=== PATIENT | female | born 1985 | race Caucasian/White ===

== ENCOUNTER → 2019-08-16 15:31 | Outpatient (CLI) | payer OTHER, SELFPAY ==
[2019-08-16 19:22] LABS: Chlamydia Trachomatis by PCR Negative (Negative); Neisserai gonorrhoeae by PCR Negative (Negative); Probe Check PASS
== END ==
PROVIDERS: Referring Provider Obstetrics & Gynecology; Visit Provider Obstetrics & Gynecology
DX: Z11.3 Encounter for screening for infections with a predominantly sexual mode of transmission (principal)
CPT/HCPCS: 87491; 87591

== ENCOUNTER → 2019-08-31 11:37 | Outpatient (CLI) | payer OTHER, SELFPAY ==
[2019-08-31 12:21] LABS: Absolute Lymphocyte Count 1.81 X10^3/uL (0.83-4.51); Absolute Neutrophil Count 6.7 X10^3/uL (2.0-7.7); Basophil# 0.05 X10^3/uL; Basophil% 0.5 % (0-1); Eosinophil# 0.04 X10^3/uL; Eosinophils% 0.4 % (0-5); Hematocrit 38.8 % (37-47); Hemoglobin 12.5 g/dL (12.0-15.0); Lymphocyte # 1.81 X10^3/ul (4.0); Lymphocyte % 19.5 % (19-41); Mean Corp Hgb Conc 32.2 g/dL (32-36); Mean Corpuscular Hgb 27.8 pg (27.0-32.0); Mean Corpuscular Volume 86.4 fL (81-99); Mean Platelet Vol. 11.6 fl (6.2-12.0); Monocyte# 0.57 X10^3/uL; Monocyte% 6.2 % (0-10); NRBC Flagged by Analyzer 0 % (0-5); Neutrophil # 6.73 X10^3/uL (2.7-7.7); Neutrophil % 72.8 % (47-70); Platelet Count 271 K/mm3 (150-450); RBC Distribution Width CV 14.4 % (11.6-14.6); RBC Distribution Width SD 45.7 fl (35.1-43.9); Red Blood Count 4.49 M/mm3 (4.2-5.4); White Blood Count 9.3 K/mm3 (4.4-11.0)
[2019-08-31 12:32] LABS: Partial Thromboplast Time 26.1 Seconds (24.1-36.2); Prothrombin Time (Protime)PT. 12.9 SECONDS (11.7-14.9)
[2019-08-31 12:48] LABS: Color, Urine Yellow (Yellow); Glucose, Dipstick Normal (Normal); Ketone-Dipstick Negative (Negative); Leukocyte Esterase-Dipstick Negative /ul (Negative); Nitrite-Dipstick Negative (Negative); Occult Blood-Urine Negative /ul (Negative); Protein-Dipstick Negative (Negative); Urine Bilirubin Dipstick Negative (Negative); Urine Clarity Clear (Clear); Urine Urobilinogen Normal (Normal); Urine pH 6.5 (5.0 - 8.0)
[2019-08-31 13:27] LABS: Protein, Urine (Random) 22.7 mg/dL (<11.9)
[2019-08-31 13:30] LABS: AST(SGOT) 17 U/L (15-37); Alanine Aminotransfer ALT/SGPT 36 U/L (13-56); Amphetamine Urine VISTA NEGATIVE (<1000 ng/mL); Barbiturate Urine VISTA NEGATIVE (< 200 ng/mL); Benzodiazepine Urine VISTA NEGATIVE (< 200 ng/mL); Cocaine Urine VISTA NEGATIVE (< 300 ng/mL); EST Glomerular Filtration Rate 101 mL/min (>60); Ecstacy Urine VISTA NEGATIVE (< 500 ng/mL); Est Glom Filt Rate - Afr Amer 122 mL/min (>60); Methadone Urine VISTA NEGATIVE (< 300 ng/mL); PCP Urine VISTA NEGATIVE (< 25 ng/mL); THC Urine VISTA NEGATIVE (< 50 ng/mL); Thyroid Stim Hormone (TSH) 0.92 uIU/mL (0.358-3.74); Uric Acid 4.2 mg/dL (2.6-6.0); Vista UDS pH Range 6
[2019-08-31 16:44] LABS: HIV - WCH Non-Reactive (Nonreactive); Hepatitis B Surface Antigen Non-Reactive (Nonreactive); Hepatitis C Antibody Non-Reactive (Nonreactive); Rubella IgG 152.3 IU/mL
[2019-09-06 00:55] LABS: Prenatal RPR NONREACTIVE (NONREACTIVE)
== END ==
LOC: WOBLAB 11:42
PROVIDERS: Visit Provider Obstetrics & Gynecology
DX: O16.1 Unspecified maternal hypertension, first trimester (principal); Z3A.00 Weeks of gestation of pregnancy not specified
CPT/HCPCS: 36415; 80307; 81002; 82565; 82570; 84156; 84443; 84450; 84460; 84550; 85025; 85610; 85730; 86703; 86762; 86803; 87340

== ENCOUNTER → 2019-11-30 13:52 | Outpatient (CLI) | payer OTHER, SELFPAY ==
[2019-11-30 15:37] LABS: Hematocrit 36.5 % (37-47); Hemoglobin 12.2 g/dL (12.0-15.0); Mean Corp Hgb Conc 33.4 g/dL (32-36); Mean Corpuscular Hgb 30.5 pg (27.0-32.0); Mean Corpuscular Volume 91.3 fL (81-99); Mean Platelet Vol. 11.3 fl (6.2-12.0); Platelet Count 230 K/mm3 (150-450); RBC Distribution Width CV 15.5 % (11.6-14.6); RBC Distribution Width SD 50.9 fl (35.1-43.9); White Blood Count 11.6 K/mm3 (4.4-11.0)
[2019-11-30 15:53] LABS: ALB/GLOB Ratio 0.6 RATIO (0.9-2.4); AST(SGOT) 11 U/L (15-37); Alanine Aminotransfer ALT/SGPT 18 U/L (13-56); Albumin, Serum 2.9 g/dL (3.2-5.0); Alkaline Phosphatase 112 U/L (45-117); Anion Gap 10 (5-15); BUN 6 mg/dL (7-18); BUN/Creat Ratio 12.2 RATIO (10-20); Calcium,Total 8.9 mg/dL (8.5-10.1); Chloride 104 mmol/L (98-107); Creatinine, Serum 0.49 mg/dL (0.55-1.02); EST Glomerular Filtration Rate 152 mL/min (>60); Est Glom Filt Rate - Afr Amer 184 mL/min (>60); Globulin 4.5 g/dL (2.2-4.2); Glucose 85 mg/dL (74-106); Potassium 3.5 mmol/L (3.5-5.1); Protein, Total 7.4 g/dL (6.4-8.2); Sodium Level 137 mmol/L (136-145)
== END ==
PROVIDERS: Visit Provider Obstetrics & Gynecology
DX: O13.9 Gestational [pregnancy-induced] hypertension without significant proteinuria, unspecified trimester (principal); Z3A.00 Weeks of gestation of pregnancy not specified
CPT/HCPCS: 36415; 80053; 85027

== ENCOUNTER → 2020-01-08 11:44 | Outpatient (CLI) | payer OTHER, SELFPAY ==
[2020-01-08 13:39] LABS: Hematocrit 34.8 % (37-47); Hemoglobin 11.4 g/dL (12.0-15.0); Mean Corp Hgb Conc 32.8 g/dL (32-36); Mean Corpuscular Hgb 30.4 pg (27.0-32.0); Mean Corpuscular Volume 92.8 fL (81-99); Mean Platelet Vol. 11.7 fl (6.2-12.0); Platelet Count 209 K/mm3 (150-450); RBC Distribution Width CV 14.4 % (11.6-14.6); RBC Distribution Width SD 48.1 fl (35.1-43.9); Red Blood Count 3.75 M/mm3 (4.2-5.4); White Blood Count 9.8 K/mm3 (4.4-11.0)
[2020-01-08 13:42] LABS: Glucose Challenge Gest 1H 50g 190 mg/dL (70-140)
== END ==
PROVIDERS: Visit Provider Obstetrics & Gynecology
DX: Z34.83 Encounter for supervision of other normal pregnancy, third trimester (principal)
CPT/HCPCS: 36415; 82950; 85027

== ENCOUNTER → 2020-01-11 09:53 | Outpatient (CLI) | payer OTHER, SELFPAY ==
[2020-01-11 11:26] LABS: Glucose GTT-Gestation. Fasting 90 mg/dL (<105)
[2020-01-11 12:44] LABS: Glucose GTT-Gestational 1 Hr 190 mg/dL (<190)
[2020-01-11 13:18] LABS: Glucose GTT-Gestational 2 Hr 172 mg/dL (<165)
[2020-01-11 14:31] LABS: Glucose GTT-Gestational 3 Hr 164 L (<145)
== END ==
PROVIDERS: Referring Provider Obstetrics & Gynecology; Visit Provider Obstetrics & Gynecology
DX: O24.912 Unspecified diabetes mellitus in pregnancy, second trimester (principal); Z3A.00 Weeks of gestation of pregnancy not specified
CPT/HCPCS: 36415; 82951; 82952

== ENCOUNTER → 2020-01-29 10:49 | Outpatient (CLI) | payer OTHER, SELFPAY ==
[2020-01-29 13:48] LABS: Hematocrit 34.6 % (37-47); Hemoglobin 11.5 g/dL (12.0-15.0); Mean Corp Hgb Conc 33.2 g/dL (32-36); Mean Corpuscular Hgb 30.3 pg (27.0-32.0); Mean Corpuscular Volume 91.3 fL (81-99); Mean Platelet Vol. 11.9 fl (6.2-12.0); Platelet Count 211 K/mm3 (150-450); RBC Distribution Width CV 13.7 % (11.6-14.6); RBC Distribution Width SD 45.6 fl (35.1-43.9); Red Blood Count 3.79 M/mm3 (4.2-5.4); White Blood Count 8.2 K/mm3 (4.4-11.0)
[2020-01-29 14:02] LABS: Protein, Urine (Random) 29.2 mg/dL (<11.9); Protein:Creat Ratio 168 mg/g CRE (0-200)
[2020-01-29 14:05] LABS: ALB/GLOB Ratio 0.6 RATIO (0.9-2.4); AST(SGOT) 11 U/L (15-37); Alanine Aminotransfer ALT/SGPT 15 U/L (13-56); Albumin, Serum 2.7 g/dL (3.2-5.0); Alkaline Phosphatase 122 U/L (45-117); BUN 5 mg/dL (7-18); BUN/Creat Ratio 10.8 RATIO (10-20); Chloride 109 mmol/L (98-107); Creatinine, Serum 0.46 mg/dL (0.55-1.02); EST Glomerular Filtration Rate 162 mL/min (>60); Est Glom Filt Rate - Afr Amer 196 mL/min (>60); Globulin 4.4 g/dL (2.2-4.2); Glucose 81 mg/dL (74-106); Potassium 3.3 mmol/L (3.5-5.1); Protein, Total 7.1 g/dL (6.4-8.2); Sodium Level 138 mmol/L (136-145)
[2020-01-29 14:06] LABS: Anion Gap 9 (5-15); LDH 139 U/L (84-246)
== END ==
PROVIDERS: Visit Provider Student in an Organized Health Care Education/Training Program
DX: I10 Essential (primary) hypertension (principal)
CPT/HCPCS: 36415; 80053; 82570; 83615; 84156; 85027; 87086

== ENCOUNTER 2020-02-29 09:50 | Outpatient (CLI) | payer OTHER, SELFPAY ==
[2020-02-29 10:04] VITALS: BP 136/70; PULSE 97; TEMP 36.9
[2020-02-29 10:06] VITALS: PULSE 91; O2SAT 98
[2020-02-29 10:08] VITALS: BMI 44.7
--- NOTE | 2020-02-29 17:43 | PCM.PN.BLA ---
Progress Note NST REACTIVE 135/mod isac/+accel/no decel, toco quiet. cHTN BP stable. GDMA2. F/u next week in office.
== END 2020-02-29 10:30 | disposition home or self-care (01) ==
LOC: WPOUT 09:54 → WP 09:54
PROVIDERS: Visit Provider Student in an Organized Health Care Education/Training Program
DX: O24.419 Gestational diabetes mellitus in pregnancy, unspecified control (principal)
CPT/HCPCS: 59025; 59050; 99218; G0378

== ENCOUNTER → 2020-03-03 10:57 | Outpatient (CLI) | payer OTHER, SELFPAY ==
[2020-02-29 10:08] VITALS: BMI 44.7
[2020-03-03 14:34] LABS: Protein, Urine (Random) 36.8 mg/dL (<11.9); Protein:Creat Ratio 142 mg/g CRE (0-200)
[2020-03-03 14:37] LABS: Hematocrit 37.1 % (37-47); Hemoglobin 11.7 g/dL (12.0-15.0); Mean Corp Hgb Conc 31.5 g/dL (32-36); Mean Corpuscular Hgb 28.9 pg (27.0-32.0); Mean Corpuscular Volume 91.6 fL (81-99); Mean Platelet Vol. 12.1 fl (6.2-12.0); Platelet Count 201 K/mm3 (150-450); RBC Distribution Width CV 13.7 % (11.6-14.6); RBC Distribution Width SD 45.8 fl (35.1-43.9); Red Blood Count 4.05 M/mm3 (4.2-5.4); White Blood Count 10.2 K/mm3 (4.4-11.0)
[2020-03-03 14:38] LABS: ALB/GLOB Ratio 0.6 RATIO (0.9-2.4); AST(SGOT) 10 U/L (15-37); Alanine Aminotransfer ALT/SGPT 13 U/L (13-56); Albumin, Serum 2.7 g/dL (3.2-5.0); Alkaline Phosphatase 175 U/L (45-117); Anion Gap 7 (5-15); BUN 6 mg/dL (7-18); BUN/Creat Ratio 10.5 RATIO (10-20); Chloride 109 mmol/L (98-107); Creatinine, Serum 0.57 mg/dL (0.55-1.02); EST Glomerular Filtration Rate 127 mL/min (>60); Est Glom Filt Rate - Afr Amer 154 mL/min (>60); Globulin 4.4 g/dL (2.2-4.2); Glucose 83 mg/dL (74-106); LDH 149 U/L (84-246); Potassium 3.6 mmol/L (3.5-5.1); Protein, Total 7.1 g/dL (6.4-8.2); Sodium Level 139 mmol/L (136-145)
== END ==
PROVIDERS: Visit Provider Student in an Organized Health Care Education/Training Program
DX: O24.414 Gestational diabetes mellitus in pregnancy, insulin controlled (principal); O16.3 Unspecified maternal hypertension, third trimester; Z3A.00 Weeks of gestation of pregnancy not specified
CPT/HCPCS: 36415; 80053; 82570; 83615; 84156; 85027; 87086; 87088

== ENCOUNTER 2020-03-20 10:45 | Outpatient (CLI) | payer OTHER, SELFPAY ==
[2020-03-20] VITALS (11 sets, daily range): BP systolic 129–147; BP diastolic 62–77; PULSE 86–111; TEMP 36.8; O2SAT 98; BMI 44.3
[2020-03-20 11:57] LABS: Absolute Lymphocyte Count 1.76 X10^3/uL (0.83-4.51); Absolute Neutrophil Count 7.2 X10^3/uL (2.0-7.7); Basophil# 0.03 X10^3/uL; Basophil% 0.3 % (0-1); Eosinophil# 0.02 X10^3/uL; Eosinophils% 0.2 % (0-5); Hematocrit 33.9 % (37-47); Hemoglobin 11.2 g/dL (12.0-15.0); Lymphocyte # 1.76 X10^3/ul (4.0); Lymphocyte % 18.1 % (19-41); Mean Corpuscular Hgb 29.1 pg (27.0-32.0); Mean Corpuscular Volume 88.1 fL (81-99); Mean Platelet Vol. 11.9 fl (6.2-12.0); Monocyte# 0.65 X10^3/uL; Monocyte% 6.7 % (0-10); NRBC Flagged by Analyzer 0 % (0-5); Neutrophil # 7.21 X10^3/uL (2.7-7.7); Neutrophil % 74.2 % (47-70); Platelet Count 180 K/mm3 (150-450); RBC Distribution Width CV 14.2 % (11.6-14.6); RBC Distribution Width SD 45.3 fl (35.1-43.9); Red Blood Count 3.85 M/mm3 (4.2-5.4); White Blood Count 9.7 K/mm3 (4.4-11.0)
[2020-03-20 12:23] LABS: ALB/GLOB Ratio 0.6 RATIO (0.9-2.4); AST(SGOT) 11 U/L (15-37); Alanine Aminotransfer ALT/SGPT 13 U/L (13-56); Albumin, Serum 2.6 g/dL (3.2-5.0); Alkaline Phosphatase 188 U/L (45-117); Anion Gap 10 (5-15); BUN 7 mg/dL (7-18); BUN/Creat Ratio 13.3 RATIO (10-20); Calcium,Total 9.1 mg/dL (8.5-10.1); Chloride 107 mmol/L (98-107); Creatinine, Serum 0.53 mg/dL (0.55-1.02); EST Glomerular Filtration Rate 140 mL/min (>60); Est Glom Filt Rate - Afr Amer 170 mL/min (>60); Estimated Creatinine Clearance 133.31 ml/min; Globulin 4.2 g/dL (2.2-4.2); Glucose 78 mg/dL (74-106); LDH 144 U/L (84-246); Protein, Total 6.8 g/dL (6.4-8.2); Sodium Level 138 mmol/L (136-145)
[2020-03-20 12:23] LABS: Protein, Urine (Random) 22.4 mg/dL (<11.9); Protein:Creat Ratio 101 mg/g CRE (0-200)
--- NOTE | 2020-03-20 14:06 | OB.TRI.PN_ITS ---
Progress Notes Date of Service: 03/20/20 Progress Note: at 36/2w sent to triage from office for elevated BPs. Asymptomatic. On L&D BPs controlled, labs wnl. NST REACTIVE. Okay to discharge home with office visit Tuesday and induction 03/25 for cHTN and GDMA2. Laboratory Studies: Laboratory Tests 03/20/20 03/20/20 03/20/20 Range/Units 11:45 11:45 11:30 WBC 9.7 (4.4-11.0) K/mm3 RBC 3.85 L (4.2-5.4) M/mm3 Hgb 11.2 L (12.0-15.0) g/dL Hct 33.9 L (37-47) % MCV 88.1 (81-99) fL MCH 29.1 (27.0-32.0) pg MCHC 33.0 (32-36) g/dL RDW Std Deviation 45.3 H (35.1-43.9) fl RDW Coeff of Bibi 14.2 (11.6-14.6) % Plt Count 180 (150-450) K/mm3 MPV 11.9 (6.2-12.0) fl Immature Gran % (Auto) 0.500 (0.0-0.9) % Neut % (Auto) 74.2 H (47-70) % Lymph % (Auto) 18.1 L (19-41) % [facility] % (Auto) 6.7 (0-10) % Eos % (Auto) 0.2 (0-5) % Baso % (Auto) 0.3 (0-1) % Absolute Neuts (auto) 7.2 (2.0-7.7) X10^3/uL Absolute Lymphs (auto) 1.76 (0.83-4.51) X10^3/uL Nucleated RBC % 0 (0-5) % Sodium 138 (136-145) mmol/L Potassium 4.0 (3.5-5.1) mmol/L Chloride 107 (98-107) mmol/L Carbon Dioxide 21.0 (21.0-32.0) mmol/L Anion Gap 10 (5-15) BUN 7 (7-18) mg/dL Creatinine 0.53 L (0.55-1.02) mg/dL Estim Creat Clear Calc 133.31 ml/min Est GFR (MDRD) Af Amer 170 (>60) mL/min Est GFR (MDRD) Non-Af 140 (>60) mL/min BUN/Creatinine Ratio 13.3 (10-20) RATIO Glucose 78 (74-106) mg/dL Calcium 9.1 (8.5-10.1) mg/dL Total Bilirubin 0.40 (0.20-1.00) mg/dL AST 11 L (15-37) U/L ALT 13 (13-56) U/L Alkaline Phosphatase 188 H (45-117) U/L Lactate Dehydrogenase 144 (84-246) U/L Total Protein 6.8 (6.4-8.2) g/dL Albumin 2.6 L (3.2-5.0) g/dL Globulin 4.2 (2.2-4.2) g/dL Albumin/Globulin Ratio 0.6 L (0.9-2.4) RATIO U Random Total Protein 22.4 H (<11.9) mg/dL Urine Creatinine 221.00 (NO RANGE EST.) mg/dL Protein/Creatinin Ratio 101 (0-200) mg/g CRE
[2020-03-20 15:31] LABS: Group B Strep DNA By PCR Negative (Negative); Internal Control PASS; Probe Check PASS; Specimen Processing Control PASS
== END 2020-03-20 13:31 | disposition home or self-care (01) ==
PROVIDERS: Student in an Organized Health Care Education/Training Program; Visit Provider Obstetrics & Gynecology
DX: O10.913 Unspecified pre-existing hypertension complicating pregnancy, third trimester (principal); O24.419 Gestational diabetes mellitus in pregnancy, unspecified control; Z3A.36 36 weeks gestation of pregnancy
CPT/HCPCS: 36415; 59025; 59050; 80053; 82570; 83615; 84156; 85025; 87081; 87086; 87088; 87653; 99218; G0378

== ENCOUNTER → 2020-03-20 18:13 | Outpatient (CLI) | payer OTHER, SELFPAY ==
[2020-02-29 10:08] VITALS: BMI 44.7
[2020-03-20 11:14] VITALS: BMI 44.3
== END ==
PROVIDERS: Referring Provider Student in an Organized Health Care Education/Training Program; Visit Provider Student in an Organized Health Care Education/Training Program
DX: Z03.818 Encounter for observation for suspected exposure to other biological agents ruled out (principal)
CPT/HCPCS: 87635; C9803; U0003

== ENCOUNTER 2020-03-25 06:50 | Inpatient (IN) | payer OTHER, SELFPAY ==
[2020-03-20 11:14] VITALS: BMI 44.3
[2020-03-25] VITALS (38 sets, daily range): BP systolic 92–173; BP diastolic 46–83; PULSE 65–202; TEMP 36.1–36.7; O2SAT 82–100; BMI 44.6
[2020-03-25] MEDS: Lactated Ringers 1,000 ML 50 ML IV (07:35)
[2020-03-25 07:56] LABS: Absolute Neutrophil Count 6.9 X10^3/uL (2.0-7.7); Basophil# 0.02 X10^3/uL; Basophil% 0.2 % (0-1); Eosinophil# 0.07 X10^3/uL; Eosinophils% 0.7 % (0-5); Hematocrit 33.2 % (37-47); Hemoglobin 10.8 g/dL (12.0-15.0); Lymphocyte % 20.4 % (19-41); Mean Corp Hgb Conc 32.5 g/dL (32-36); Mean Corpuscular Hgb 28.8 pg (27.0-32.0); Mean Corpuscular Volume 88.5 fL (81-99); Monocyte% 7.1 % (0-10); NRBC Flagged by Analyzer 0 % (0-5); Neutrophil # 6.94 X10^3/uL (2.7-7.7); Neutrophil % 70.9 % (47-70); Platelet Count 180 K/mm3 (150-450); RBC Distribution Width CV 14.3 % (11.6-14.6); RBC Distribution Width SD 45.5 fl (35.1-43.9); Red Blood Count 3.75 M/mm3 (4.2-5.4); White Blood Count 9.8 K/mm3 (4.4-11.0)
[2020-03-25] MEDS: miSOPROStol 25 MCG TABLET VAGINAL ×2 (08:22→12:12)
--- NOTE | 2020-03-25 08:43 | PCM.HP.OB ---
History Date of Admission: 03/25/20 Final JANAE: 04/15/20 Final JANAE Source: US <20 weeks Gestational age: 37 Weeks and 0 Days History of this : This is a 34 year-old, G [4], P [2011], at 37 weeks gestational age presents for scheduled induction of labor for gestational diabetes and chronic hypertension Medical History: Medical History (Last Updated 03/25/20 @ 08:[address] Domenica Morrow MD) Anxiety F41.9 Depression F32.9 Chronic hypertension I10 Allergies No Known Allergies Allergy (Verified 03/25/20 07:10) Home Medications: Home Medications Insulin Detemir [Levemir] 20 unit SQ BID 02/29/20 Insulin Lispro [Humalog] 18 unit SQ PCHS 02/29/20 Labetalol [Trandate] 800 mg PO TID 02/29/20 Nifedipine [Nifedipine ER] 30 mg PO DAILY 02/29/20 Pnv No.103/Folic/Om3s/Fish Oil [ Gummies] 1 ea PO DAILY 02/29/20 Sertraline HCl 25 mg PO DAILY 02/29/20 Smoking Status: Current some day smoker Alcohol: None Number of Fetus(es): 1 History Labs: Final JANAE: 04/15/20 By Ultrasound: 7 weeks 3 days PARITY: (G-Total Pregnancies P-Fullterm,Premature,Induced AB,Spont AB, Ectopics, Multiple,Living) JANAE CONFIRMATION: By LMP: 07/04/19 Final JANAE: 04/15/20 BLOOD TYPE: AFP: 1 HR PG: GBS: Original Ordering Provider: Yeny REYES Culture Group B Beta Streptococcus is not isolated. Rublla titer (>10 immune)-- Hepatatis B cem AG-- CULTURES:-- OB PROBLEM LIST: Anxiety/Depression Chronic Hypertension GDMA2 ALLERGIES: Maxalt Hives and/or rash MEDICATIONS: aspirin 81 mg tablet,delayed release 1 PO QD Fioricet 50 mg-300 mg-40 mg capsule one tab every 6 hours as needed for headacke insulin lispro (U-100) 100 unit/mL subcutaneous pen 2 units at mealtime labetalol 200 mg tablet Take four tablets by mouth three times a day Levemir U-100 Insulin 100 unit/mL subcutaneous solution 10 units daily at night nifedipine ER 30 mg tablet,extended release 24 hr once daily 28 mg-800 mcg tablet daily promethazine 12.5 mg tablet Take one to two tablets every six hours as needed Zofran 4 mg tablet Take one tablet every four to six hours as needed Zoloft 25 mg tablet Take one tablet daily SOCIAL HISTORY: Smoking - Quit 5 y ago. Alcohol Use - RARELY not while Diet - balanced Diet, occ coffee and Water main beverage. Lifestyle - engaged Exercise - Walks once a week. Employer - [employer] Job Description - [employer] Illicit Drug Use - denies use of street drugs Sexual Activity - [employer] Residence - lives with [facility] Place of - [place] Hours Worked - On FMLA Spouse-Sig Other Name - FOB- Lul Kirk Spouse-Sig Other Occupation - Self employed- construction Spouse-Sig Other Phone No - [phone] Children Name(s) - Luba Jay PRIOR DELIVERY HISTORY DEL DATE GEST LAB WT LB WT OZ TYPE ANES LABOR TX 09 Dec 18 39 8 8 2 Vag Epidural No Sep 18 39 8 8 7 Vag Epidural No ANTEPARTUM FLOW CHART VISIT GE RTC FU F F OR U U DATE WK MD WKS HT PN HR M SS BP ED WT OR GL D EF ST __ ____ ___ __ __ ___ __ __ __ ___ __ __ __ ___ __ 21 Dec 36 JMW 2 37 V + + 148/84 sl 269 1+ - 2 65 -2 17 Dec 36 CM 1 37 V +U + 156/104 0 269 tr - 14 Dec 35 CM + + 116/80 267 10 Dec 35 + + 140/82 sl 268 - - 07 Dec 34 + 142/84 sl 268 -, - 03 Dec 34 + + 138/78 sl 269 - - 30 Feb 33 CM 1 34 V + + 142/84 sl 269 1+ - 23 Nov 32 CM 1 32 B +U + 152/84 sl 268 - - 20 Feb 32 SHM 1 + 120/74 264 17 Nov 32 CM + 138/82 tr 268 - - 13 Feb 31 + + 130/76 sl 269 - - 10 Feb 31 CM 1 31 B U+ + 136/96 sl 269 - - 06 Feb 30 + + 136/82 sl 270 tr - 03 Nov 30 CM 1 B U+ + 146/84 sl 268 tr - 30 Oct 29 + + 132/80 sl 271 27 Oct 29 CM 1 29 B + + 142/82 sl 271 23 Oct 28 + + 140/84 sl 272 tr - 20 Oct 28 CM 1 28 V U+ + 140/78 1+ 274 tr ne 06 Oct 26 CH 2 26 + + 148/82 sl 274 1+ - 22 Sep 24 JM 2 24 - + + 140/74 sl 274 tr - 15 Sep 23 CH 1 23 + + 152/98 0 271 1+ - 04 Sep 21 JM 4 21 - + + 124/82 tr 271 1+ - 28 Aug 20 CH 1 on + 158/92 sl 273 tr - 05 Nov 17 CH 3 + + 144/90 0 274 tr - 07 Oct 13 CH 4 on US 124/80 0 270 - - 25 Hever 11 CH 4 + - 130/70 0 272 tr - 29 August 7 CH on US 150/98 0 274 tr - ANTEPARTUM NOTE(S): Mar 24 2020: induce tomorrow Mar 20 2020: Mar 17 2020: unable Mar 13 2020: Blood sugars and home B/Ps copied for review. Mar 10 2020: Mar 06 2020: Mar 03 2020: Feb 25 2020: Feb 22 2020: Reactive NST Feb 19 2020: Feb 15 2020: Feb 12 2020: Feb 07 2020: See note Feb 05 2020: Feb 01 2020: Jan 29 2020: Jan 25 2020: Feels okay. Jan 22 2020: Jan 08 2020: still having some slight N/V Dec 25 2019: Dec 18 2019: Sep 2019: Nov 30 2019: Nov 07 2019: feeling well. Denies xiong or blurry vision. AM Oct 09 2019: see note Sep 27 2019: see note Aug 31 2019: repeat BP 150/86. Nausea. NOB papers and labs today. COMPREHENSIVE ANTEPARTUM NOTE(S): Mar 24 2020: H taken to OB. tkg Mar 24 2020: Carline is here for her NST at 36 w 6 d. She states that she is exhausted, and ready for induction in the morning. She reports good FM. Slight edema noted below knees. Carline denies spotting/cramping/LoF. NST reactive, read per Dr. Flores. AW Mar 20 2020: Carline is here with SO for 36 + 2 PNV. US prior to this visit. Reporting good FM. Meds remain the same. No edema present today. She continues to wear compression socks. Blood sugars and Blood pressures copied. GBS due today. [facility] consents reviewed and signed. No complaints or concerns expressed. Mar 20 2020: 36/2w visit. Chronic Hypertension on labetolol 800 TID and procardia 60 qD. BP elevated today in office, asymptomatic. Will go to L for monitoring and bloodwork. GDMA2 - Increase levemir to 20 units AM/PM and 18 units with meals. With both chronic hypertension and GDMA2 with increasing insulin requirements, will plan for induction of labor at 37/0w on 03/25/20 with cytotec (CE FT). F/u for NST Tuesday and induction Tuesday. CM Mar 20 2020: BP recheck 146/100. Cytotec Induction scheduled for 03/25/20 @ 7 AM. Consent signed. Induction papers faxed to OB. Induction literature given to Carline. COVID test order faxed; she is planning to do today. kbm Mar 17 2020: Carline is here for NST at 35.6 weeks for GDM on insulin. Feeling well. Baby active. Unable to leave urine today. States she believes will be induced next week. Ready for baby. NST read as reactive by Dr GALLAGHER. CHRIS. Mar 13 2020: Carline is here for her NST at 35 w 2 d. She states that she feels okay, but tired. She reports good FM. Carline denies spotting or LOF. She states that she feels mild irregular cramping at night. Slight edema noted below knees. Continues insulin 17 units both AM and PM, as well as 16 units after meals. NST reactive, read per Dr. Flores. Dr. Flores reviewed blood sugars and home B/P's; copy of blood sugars and B/P's for reviewed per Dr. Joe Maya. AW Mar 10 2020: US prior to this visit. Reporting good FM. Meds remain the same. Blood sugars, BP's scanned to her chart. Mar 10 2020: 34/6w visit. BPP 8/8, baby transverse. cHTN - continue current medications. Plan for labs next week again, labs last week wnl. GDMA2 - will increase levemir to 17/17 and 16 TID meals. Plan for delivery 37-39w, likely closer to 37w due to chronic HTN and GDMA2. F/u 1w. CM Mar 06 2020: Carline is here at 34 w 2 d for her NST. She reports that she is tired. She states that she feels good FM. Denies spotting/LoF. She notes occasional mild cramping. Slight edema below knees. She denies a headache. NST reactive, read per Dr. Joe Maya. Dr. Maya reviewed blood sugars and home B/P's. No changes in any medication doses today. Per Dr. Maya's order, Carline advised that latest lab values were WNL. AW Mar 03 2020: Carline reporting good FM. Wearing compression stockings. Reporting slight XIONG this morning. BP's and blood sugars scanned to her chart. Continues Labetalol 800 mg TID, Nifedipine 60 mg daily, Levemir and Lispro. Mar 03 2020: 33/6w visit. cHTN: BPs controlled, labetolol 800 mg TID and procardia 60 mg daily. Continue. Labs today. Pre-e precautions given. GDMA2: Levemir 15/15 increase lispro at meals to 14 units. F/u 1w. CM Feb 25 2020: Carline reporting good FM. Blood sugars and BP's records from home scanned to her chart. BPP 8/ prior to this visit. Feb 25 2020: 32/6w visit. BPP 8/8, breech position. GDMA2: glucose post prandial improved. No changes to insulin regimen today. Levemir 15/15 AM/P and 12units short acting with meals. cHTN: BPs stable on labetolol 800 TID and procardia 60 qD. NST to be scheduled Tuesday AM on L. Needs labs drawn either tuesday or next week. F/u 1w. CM Feb 22 2020: Carline is here for NST. cHTN/GDM. NST is reactive, B/P WNL. Reports blood sugars have been ok. Plans PNV and BPP on Tuesday. LMT Feb 19 2020: Carline is her today with SO for her PNV. She is doing well with no complaints or concerns. + FM. Trace of edema in ankles. Medications and allergies reviewed. LJW Feb 19 2020: 32/0w visit. cHTN. Continue current meds, BP control is improved. GDMA2: improving glucose control. Levemir 15/15 us A/P and 12 units with meals. Will consider MFM consult if needed next week. PP glucose between 130-190s. Growth today AGA, fluid wnl. F/u 1w. CM Feb 15 2020: Carline is here at 31 w 3 d for her NST. She states that she is tired, but well. She denies spotting/LoF/cramping. She feels good FM. Slight edema noted below knees. NST reactive, read per Dr. Joe Maya. Blood sugars and blood pressures from the last three days reviewed per Dr. Joe Maya. Dr. Maya advised to have Carline increase her meal time Insulin to 10 units from 7 units, and no changes to Labetalol, Nifedipine, Levemir dosages; Carline advised and states that she understands all. AW Feb 12 2020: 31/0w visit. Chronic HTN. Wnl here in office, at home 150-160s systolic, increase procardia to 60 mg daily. GDMA2: OTBS fasting wnl, still elevated postprandial. Increase mealtime insulin to 7u TID. Keep levemir 15/10 AM/PM. BPP 8/8 today, LOUIS wnl. Growth US 02/18. CM Feb 12 2020: NOB VISIT-- Carline is a 34 yo G 4 P 2 with JANAE 1-12--21 planning a vag del at [facility] w epidural using [facility] for post disch ped care and to breastfeed. She is an ACCOUNTING TEACHER on FMLA currently. FOB is Lul who is self employed in construction. They have 5 and 4 yo daughters at home. She reports high BP with her other two pregnancies and about 8 hour labors. Carline is allergic to Maxalt. She has no allergies to latex, food or the environment. Her diet sounds balanced w occ coffee and water is her main beverage. Enc to drink as close to one gal daily as she can. Carline is a GDM on insulin and has chronic hypertension, anxiety and migraines. Her meds are: aspirin, Fioricet, insulin, labetalol, nifedipine, promethazine, Zofran and Zoloft. Carline walks once a week on Wednesdays. Enc to walk daily or do yoga for pg DVD. Carline was a smoker but quit 5 years ago upon realizing her first pg. She drinks alcohol very rarely and not in pg. She denies street drug use. Genetics Screening form completed at a prev visit noting no family issues. She declined genetics testing. Warning signs in pg reviewed along w wearing her seatbelt low on her abd, reaching the office after hours, the importance of protein in her diet with understanding voiced. They have no cats but she is aware of litter box issues. She has a copy of What to Expect. Office Class suggested as nursing has not gone well in the past. Enc to call w any concerns. Visit took approx 35 min. Johnathan JAMES. Feb 08 2020: Carline is here at 30 w 3 d for her NST. She reports she feels well. She denies spotting/cramping/LoF. Carline reports that she is feeling good FM. Slight edema noted below knees. She brought her home B/P cuff with her today (automatic with a large cuff), B/P with her cuff is 129/89 today in office (L arm, reclining in slight left tilt). Home B/P's over the last three days: 161/82, 166/89, 156/101, all taken in the evening or late afternoon. Suggested taking B/P's when lying tilted on L side, and when the house is a bit quieter. Blood sugar log reviewed, and reported to Dr. Joe Maya; no new orders regarding insulin; Carline advised. NST reactive, read per Dr. Joe Maya. AW Feb 05 2020: Brings BP + sugar readings. Scanned to her chart. She takes a half of a Zofran and lies down after taking Labetalol for about a half hour, otherwise upsets her stomach and she will vomit. Denies blurred vision and no RUQ pain. Edema legs worse by the end of her day. She has been having headaches every day, taking Fioricet and Tylenol which keeps XIONG dull and is manageable, but does not resolve completely. Good FM. [facility] Feb 05 2020: 30/0 w visit. Chronic HTN - BP stable in office. Continue procardia 30 qD and labetolol 800 TID. GDMA2: post prandial elevated. Will increase levemir PM/AM to 15/10 units and add short acting mealtime 2units. Pt will bring glucose on for NST apt. BPP today 11/09, LOUIS wnl. F/u 1w. CM Feb 01 2020: Carline is here at 29 w 3 d for her NST. She states that she feels okay, and reports good FM. She denies cramping or spotting. Slight edema noted below knees. NST reactive, read per Dr. Joe Maya. AW Jan 29 2020: States doing well w/Levemir Insulin @ hs. Brings sugar and BP readings record with her -- scanned to her chart. BP's 01/25 -- 151/101, 01/26 -- 165/94, 01/27 -- 155/96. Reporting XIONG's the past 2 days -- takes Tylenol, which takes the edge off; no epigastric pain, reporting edema in legs worse in the evenings, but otherwise minimal. Good FM. [facility] Jan 29 2020: 29/0w visit. Chronic HTN - BP stable in office, a little higher at home. Now on procardia 30 qD and labetolol 800 TID. Having headache that is improved with tylenol but not completely gone today. No visual changes, nausea/emesis, RUQ pain, Neuro exam wnl - CN 2-12 grossly intact, DTRs 2/4 bilaterally. Labs drawn today. Fioricet script sent. Precautions discussed. GDMA2: fasting glucose wnl, PP variable - she is checking 1hr PP. Will keep levemir 10 u at night and levemir 5 units in AM. Continue testing BPP/NST twice weekly. F/u 1w Jan 25 2020: Carline is here for a NST at 28 w 3 d. She is familiar with EEFM/NST. She states that she feels okay, and that she notes good FM. She denies spotting/cramping. Slight edema noted below knees. Blood sugars at home: FBS 87 - 108, 1 hr pp breakfast 108 and 201, 1 hr pp lunch 108-178, 1 hr pp dinner 123, 160, 169. She reports that she is doing okay with administering insulin. Home B/P's: 151/98, and 155/89. Denies headaches, visual disturbances, or epigastric pain. NST reactive, read per Dr. Gurdeep Morrow. AW Jan 23 2020: Carline is here for diabetic teaching: Insulin Injection. 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 Info from [employer] 2019 on Learning How To Inject Insulin discussed and given to her. She demonstrated drawing up and injecting a 10 unit dose of NS correctly several times. States she can do this. 50 unit insulin syringes #30 with 2 refills called to [facility]. Site rotation, proper disposal of used needles and treatment for low glucose readings discussed. Advised, per [facility] diabetic nurse instructor: one glass of milk or 1/2 glass of juice swallowed rapidly. She verbalizes understanding of these procedures. To call office with any concerns or questions. Johnathan JAMES. Jan 22 2020: Carline is here for PNV. US completed today. States she is having good FM. Slight edema in hands. 1+ edema in feet. Taking BP medications which causes nausea othrwise no issues with N/V. BP today is 140/78. Taking Labetalol 200 mg tid and ASA 81 mg qday. Jan 22 2020: 28w visit. GDMA: fastings above 95 and average 1hr postprandial >140. Start levemir 10 units once daily at night. Pt's insurance does not cover well tester. Will come back tomorrow for diabetic teaching on how to use insulin in office. cHTN. BPs at home elevated 150-160/100s. Will add procardia XL 30 qD. Will start twice weekly testing (BPP/NST). F/u 1w Jan 08 2020: Carline is here for PNV. States she is still having a little N/V especially after taking pills. BP 148/82 today. Brougth with her, her BP from home that she monitored.Slight edema noted in ankles and feet. Urine dipped 1+ and neg today. [facility] Jan 08 2020: Routine PNV with third trimester labs today. Understands no news is good news. Saw Dr. Brandon Maya at last visit and medication remained the same. Today BP 148/82 in the office. Home medications 12/25-01/[address] Bee Maya reviewed and will maintain same medication dosage with education on home BP cuff/monitoring. She reports her BP cuff is an electronic cuff, but not a wrist one. It is an actual arm cuff. Will look at manual and will bring in cuff to compare to ours at next visit. FHR 140. Q2 week visit with joselyn BECK at that time. If s/s of pre-e understands to call immediately. Work excuse wrote until 01-24 or until released by the office- Dec 25 2019: Carline is here for PNV. States she is having good FM. Slight edema noted in ankles. Able to eat well but feeling tired most of time. Urine dipped for tr and neg. BP today 140/74. Has been monitoring at home and brought those results in with her. Glucola with instructions given. Voices understanding. [facility] Dec 25 2019: Pt with cHTN on Labetalol 800mg TID. BP's at home 140-150/70-90's, with iso 160. Pt asymptomatic, does have nausea when taking labetalol but decreased with Zofran prior to taking. Will add medication if pt need increase in BP meds, at this time will keep medications as is. Discussed that medication addition/change is likely in the future. Also discussed the risk of LANCE and possible delivery. Educated on Signs/Symptoms of PreE. Pt discussed working with and her work, will continue to be off. Discussed no bed rest. Will get Growth U/S at 28wks, then q4week growths. Will start twice weekly BPP at 32wks. ASA sent to pharmacy. For 1hr GTT at next visit. Dec 18 2019: Carline is her today for her PNV. She is doing good. Good FM. States that swelling in L. hand and legs go away after she lays down and rests. No edema present today. Medications and allergies reviewed today. No other questions or concerns expressed today. Second BP 138/80. [facility] Dec 18 2019: +FM. FHR 140-150s. Home BPs copied into chart. Of 10 days she had increased BP 8/10 days. Will icrease Labetolol to 800mg TID per Dr. Brandno Maya. She will see him next week and would like to return to work if able. Understands this is the max dose of current medication and if not helping enough will need to change medications. Advised at this time I don't feel comfortable letting her return to work. Give the increased dosage a week to see if this takes effect or not. Dr. Maya can decide whether he thinks she should return or not, but we do understand her needing the income. Will return in 1 week to re-evaluate per her wishes. - Dec 07 2019: Carline is her today for her PNV. She is doing good. Good FM. States that swelling in hands and feet have gone down since she stopped working. She stills has nausea and vomiting. She states that since her Labetalol was increased her dizziness and nauseated has decreased to once a week. No other questions or concerns expressed to day. Medications and allergies reviewed today. No other questions or concerns expressed to day. [facility] Dec 07 2019: 21wk pt arrives for BP check. BP wnl with cHTN on labetalol 400mg TID. CBC and CMP drawn at last visit wnl. Asymptomatic. To follow up 4 weeks for visit and 1hr GTT. Nov 30 2019: Carline is here accompanied by SO. Good FM. Slight edema in feet and ankles. She stills has nausea and vomiting. Labetalol was increased and she is feeling dizzy and nauseated with the increase. No other questions or concerns expressed to day. [facility] Nov 30 2019: Anatomy US today reveals female fetus, AGA at EFW 55th%. All anatomy visualized and WNL. FHR on US 145. Called in 11-22 with a burning headache and elevated BPs. Dr. Bee Maya increaesed her Labetolol to 400mg BID at that time. Denies headache now. BP today 150s/90s. At work she states they range 160-170s/90-100s with +4 pitting edema. To start wearing compression stockings, which she states she has a pair at home. If she can't find them to get some from [email or web address]. Advised she should not be working in which her partner agrees that they do not need her income. She will agree to take the next week off of work and be evaluated next Tuesday by Bee Maya after increasing her Labetolol today to 400mg TID. Will also get a CBC and CMP. Reports +FM. To return next Tuesday.( In consultation with Dr. Kayla Maya) - Nov 07 2019: BP today 144/90. She reports at work BPs have been 140s/100s. 144/103 at work last night. At home BP is lower 132/88, 143/95. Consulted with Dr. Flores and will switch medication to Labetolol 200mg BID. Pt agreeable. FHR today 138. Feeling lots of movements with audible movements heard. Has paperwork for work that she will turn in up front. No questions or concerns. To return in 3 weeks for routine PNV and anatomy US. - Oct 09 2019: Carline is here for a PNV and US today. 13 wks and 0 days. Pt is doing good. Continued nausea, however, it is improving. Pt still taking Procardia as directed. No complaints or concerns today. Oct 09 2019: Dating US today consistent with LMP for JANAE of 04-15-2020. FHR 148. BP stable today at 124/80. Feeling well and nausea is so much better! No questions or concerns today. To continue current Procardia dosge. Discussed chornic HTN. Biweekly NSTs to begin at 32 weeks with once weekly BPP and Q4 week growth scans. WIll plan IOL at 38 weeks or 37 if needed. To return in 4 weeks or call if BPs start to elevate. - Sep 27 2019: Carline is here for a PNV. No FM yet. Continues to have nausea and vomiting daily. Can keep some foods down. Still taking Procardia. Down 6lbs. Sep 27 2019: Started on Procardia 30 at last visit. BP was 150/98 then. Today BP is 130/70. Denies any s/s of HTN. Zofran has not been helping with nausea enough. To increase dose to 8mg and add phenergan 12.5mg 1-2 tabs as needed. On the went to care center and had a fun ultrsound done. Dr. Flores read it and said she needed a follow up within 4 weeks for somehting he seen on there with the baby. No records on her chart. To return in 2 weeks for US and routine PNV. - Aug 31 2019: Patient and partner are here today for dating US today reveals JANAE of 04-15-20 with GA of 7w3d. FHR 152. Reports N/V and has lost 4lb. Tried OTC medication and will now send in Rx for Zofran to pharmacy to try. If worsening or unable to keep liquids down to call. We want to prevent dehydration. NOB RN visit scheduled via telehealth for next week. EPDS=0. Unsure on AFP testing. BP still elevated today. Will start Procardia 30mg ER. To take BP QD and call if ever >160/110. No other questions or concerns. To return in 4 weeks for routine PNV. - Aug 16 2019: Carline is being seen for missed menses. Pt is new to facility. . UPT in office is positive. LMP 07/04/19. Pt states she only bled for two days and has always had monthly and regular periods. Pt is about 6 weeks and 1 day. JANAE 04/09/20. Pt is experiencing nausea. OTC meds gone over and pt will try before getting rx from office. Pt just moved to [place] to live with kirti. Last pap pt guesses [address]/NG urine sent for any infections. information gone over. AM Aug 16 2019: 33y old new patient here today for a missed menses appt today reporting LMP of 07-04-19 with only a couple days of bleeding. UPT+ today in office. This would give her a GA of 6w1d and JANAE of 04-09-20. This is her third . High BP today even on repeat at 150/90. States had high BP in her previous two pregnancies and had to be induced. She used to be on medicine when she was an adolescent for BP, but none since. Let her know will discuss with attending MD about possibly starting an antihypertensive now and then a baby aspirin after 12 weeks. She is agreeable to this. Also wants to restart her Zoloft dose. Rx sent in. She is already taking PNV and is a non-smoker. Office orientation with missed menses packet reviewed. Reviewed nurse triage line and available 25/10. Will return in 2-3 weeks for NOB US, labs and PNV. To have NOB RN telehealth visit and states understanding. - REVIEW OF SYSTEMS: GENERAL - Denies fever, or chills SKIN - Denies rash, new skin lesions, or change in moles EYES - Denies blurred vision, or change in visual acuity EARS - Denies ear pain, or difficulty hearing NOSE - Denies nasal congestion, discharge, or bleeding MOUTH - Denies sore throat, or difficulty swallowing NECK - Denies pain or swelling RESPIRATORY - Denies shortness of breath, cough, wheezing CARDIOVASCULAR - Denies palpitations, chest pain, orthopnea, PND, peripheral edema, syncope or claudication GASTROINTESTINAL - Denies nausea, vomiting, diarrhea, constipation, Denies abdominal pain, melena and or bright red blood GENITOURINARY - Denies dysuria, frequency of urination, urgency, or hesitancy MUSCULOSKELETAL - Denies joint or muscle pain, or back pain NEUROLOGICAL - Denies localized numbness, weakness, or tingling PSYCHIATRIC - Denies depression, anxiety, substance abuse or suicide attempts ENDOCRINE - Denies heat or cold intolerance, weight loss or gain, increasing thirst HEMATO-IMMUNOLOGIC - Denies easy bruising, bleeding, oral ulcerations or recurrent infections GENETICS SCREENING: Age 35+ years: Yes Thalassemia: No Neural Tube Defect: No Down Syndrome: No ONDINA-SACHS: No Sickle Cell Disease: No Hemophilia: No Musc. Dystrophy: No Cystic Fibrosis: No-declines screening [place] Chorea: No Mental Retardation: No Fragile X: No Other genetic: No Other defects: No SABs/still births: No Drugs since LMP: Yes INFECTION HISTORY: High risk AIDS: No High risk Hepatitis: No Exposed to TB: No Exposed to Herpes: No Rash/viral illness since LMP: No History of STD: No MENSTRUAL HISTORY: *Menses Amount/Duration: 2 daysMenses Regularity: RegularFrequency: monthly* PAST SUMMARY: PARITY: 1. Total Pregnancies............ 4 2. Full Term Pregnancies........ 2 3. Premature.................... 0 4. Abortions - Induced.......... 0 5. Abortions - Spontaneous...... 1 6. Ectopics..................... 0 7. Multiple Births.............. 0 8. Living Children.............. 2 PAST #1: Date of :.................. 09/18/16 Gestation Weeks:................ 39 Length of labor(hours):......... 8 Sex:............................ F Weight-lbs:............... 8 Weight-oz:................ 7 Type of Delivery:............... Vag Type of Anesthesia:............. Epidural Place of Delivery:.............. [facility] Treatment of Labor?:.... No Comment: DAVID ABARCA PAST #2: Date of :.................. 12/12/15 Gestation Weeks:................ 39 Length of labor(hours):......... 8 Sex:............................ F Weight-lbs:............... 8 Weight-oz:................ 2 Type of Delivery:............... Vag Type of Anesthesia:............. Epidural Place of Delivery:.............. [facility] Treatment of Labor?:.... No Comment: PI Expected Delivery Method: Spontaneous Vaginal Number of Visits: 20 Physical Exam Vitals: Vital Signs Temp Pulse BP Pulse Ox 98.1 F 86 134/69 H 97 03/25/20 08:14 03/25/20 08:14 03/25/20 08:14 03/25/20 08:14 General: Alert, Oriented x3, Cooperative, No apparent distress HEENT: Atraumatic, Normocephalic Cardiovascular: Regular rate, Regular Rhythm, Normal S1, Normal S2 Lungs: Clear to auscultation, Normal air movement Abdomen: Soft, Non Tender, Non-Distended, Gravid Extremities:: No edema, Other - +1 b/l LE DTRs, no clonus Neurological: Neuro grossly intact Estimated gestational size: Appropriate for gestational size Presentation: Cephalic Cervix Dilation (cm): 2 - per RN E Valorie exam Station: -3 Effacement (%): 50 Assessment/Plan This is a 34 year-old, G [4], P [2012], at 37 weeks gestational age. -Cytotec IOL
[2020-03-25 08:45] LABS: Bedside Glucose 83 mg/dL (70-110)
[2020-03-25] MEDS: Labetalol 200 MG Tablet 800 MG PO (09:16)
[2020-03-25] MEDS: Sertraline 50 MG Tablet 25 MG PO (09:26)
[2020-03-25] MEDS: NIFEdipine 30 MG Tablet PO (09:27)
[2020-03-25] MEDS: Insulin Lispro 100 UNIT/ML INSULN.PEN 18 UNIT SC (09:55)
[2020-03-25] MEDS: 0.9% Saline Lock 10 ML Syringe IV ×2 (10:03→23:59)
[2020-03-25] MEDS: Ondansetron 4 MG/2 ML Vial IV ×2 (10:03→23:59)
[2020-03-25 11:06] LABS: Bedside Glucose 102 mg/dL (70-110)
[2020-03-25] MEDS: Lactated Ringers 500 ML 999 ML IV (13:30)
[2020-03-25] MEDS: fentaNYL-bupivacaine (epidural) 100 ML BAG EPIDURAL ×4 (14:33→23:45)
[2020-03-25 15:15] LABS: Bedside Glucose 71 mg/dL (70-110)
[2020-03-25] MEDS: Oxytocin 30 units/NS 500 ml 30 UNITS/500 ML IV.SOLN IV (16:25)
[2020-03-25] MEDS: Lactated Ringers 1,000 ML 200 ML IV ×2 (16:52→22:09)
[2020-03-25 17:05] LABS: Bedside Glucose 73 mg/dL (70-110)
[2020-03-25 19:00] LABS: Bedside Glucose 68 mg/dL (70-110)
--- NOTE | 2020-03-25 19:49 | PCM.PN.BLA ---
Progress Note LABOR PROGRESS NOTE No complaints. Comfortable with epidural. AVSS Vital Signs Temp Pulse BP Pulse Ox 03/25/20 19:22 97.0 F L 66 103/54 L 03/25/20 18:01 97.2 F L 72 117/58 L 100 03/25/20 16:26 97.6 F L 73 100 03/25/20 16:25 71 122/59 H 03/25/20 15:45 100 03/25/20 15:44 75 106/52 L 03/25/20 15:09 77 92/50 L 100 03/25/20 15:08 78 86 03/25/20 15:04 75 102/51 L 100 03/25/20 14:59 69 105/57 L 100 03/25/20 14:55 71 113/55 L 03/25/20 14:54 100 03/25/20 14:49 87 107/61 100 03/25/20 14:44 79 96/55 L 100 03/25/20 14:39 77 102/51 L 99 03/25/20 14:35 97.1 F L 74 113/53 L 03/25/20 14:34 73 99 03/25/20 14:29 82 118/56 L 99 03/25/20 14:24 79 120/58 L 99 03/25/20 14:19 83 120/56 L 98 03/25/20 13:05 71 110/56 L 03/25/20 11:53 99 03/25/20 11:52 97.5 F L 202 H 108/55 L 82 03/25/20 10:59 71 103/51 L 03/25/20 10:09 78 100/55 L 03/25/20 10:08 97.9 F 03/25/20 09:32 78 149/70 H 03/25/20 09:16 82 173/83 H 03/25/20 08:14 98.1 F 86 134/69 H 97 Laboratory Results 03/25/20 03/25/20 03/25/20 18:49 16:55 14:47 WBC RBC Hgb Hct MCV MCH MCHC RDW Std Deviation RDW Coeff of Bibi Plt Count MPV Immature Gran % (Auto) Neut % (Auto) Lymph % (Auto) [place] % (Auto) Eos % (Auto) Baso % (Auto) Absolute Neuts (auto) Absolute Lymphs (auto) Nucleated RBC % POC Glucose 68 L 73 71 Blood Type Antibody Screen 03/25/20 03/25/20 03/25/20 10:54 08:20 07:35 WBC RBC Hgb Hct MCV MCH MCHC RDW Std Deviation RDW Coeff of Bibi Plt Count MPV Immature Gran % (Auto) Neut % (Auto) Lymph % (Auto) [place] % (Auto) Eos % (Auto) Baso % (Auto) Absolute Neuts (auto) Absolute Lymphs (auto) Nucleated RBC % POC Glucose 102 83 Blood Type A POSITIVE Antibody Screen NEGATIVE 03/25/20 07:35 WBC 9.8 RBC 3.75 L Hgb 10.8 L Hct 33.2 L MCV 88.5 MCH 28.8 MCHC 32.5 RDW Std Deviation 45.5 H RDW Coeff of Bibi 14.3 Plt Count 180 MPV 12.0 Immature Gran % (Auto) 0.700 Neut % (Auto) 70.9 H Lymph % (Auto) 20.4 [place] % (Auto) 7.1 Eos % (Auto) 0.7 Baso % (Auto) 0.2 Absolute Neuts (auto) 6.9 Absolute Lymphs (auto) 2.00 Nucleated RBC % 0 POC Glucose Blood Type Antibody Screen GEN - NAD, AAO x 3 FHR 120 , moderate variability, + accelerations, no decelerations TOCO 3/10 min SVE 3/50/-3, moderate and midposition A/P: 34yo @ 37wga, cHTN, GDM, Cat I FHR, IOL -s/p cytotec on pitocin -Amniotomy performed with clear fluid, ISE placed -BPs low to normal range with home dose medications. Pt reports this occurs often with BPs to 100s/50s and may feel shaky. Afternoon dose of Labetalol already held. Will give Labetalol 400mg tonight and plan to hold am Nifedipine. -Blood sugars appropriate, will continue Levemir STROKE Vital Signs/Narrative: Vital Signs Temp Pulse BP Pulse Ox 03/25/20 19:22 97.0 F L 66 103/54 L 03/25/20 18:01 97.2 F L 72 117/58 L 100 03/25/20 16:26 97.6 F L 73 100 03/25/20 16:25 71 122/59 H
[2020-03-25 21:35] LABS: Bedside Glucose 68 mg/dL (70-110)
[2020-03-25] MEDS: Labetalol 200 MG Tablet 400 MG PO (22:08)
[2020-03-25 23:21] LABS: Bedside Glucose 91 mg/dL (70-110)
[2020-03-26] VITALS (18 sets, daily range): BP systolic 105–133; BP diastolic 51–66; PULSE 70–82; RESP 16; TEMP 36.3–37.1; O2SAT 97–98
[2020-03-26] MEDS: Lactated Ringers 500 ML 999 ML IV
--- NOTE | 2020-03-26 | PLAC_PTH ---
PATIENT: YONNY BORDEN LOC: WP U#:[id number] AGE/SX: 34/F ROOM: WP016 RE03/25/[address]: Dr. Domenica Morrow MD : 1985 BED: 1 DIS: 03/27/2020 SPEC #: [id number] RECD: 03/27/20 12:03 STATUS: PENELOPE REAga #: [id number] HIMA: 03/26/20 00:[address]: Domenica Ragland DEPT: SURGICAL PATHOLOGY RECD BY: Truong Metzger ENTERED: 03/27/20 07:29 SP TYPE: PLACENTA OTHR DR: No Primary Care Phys Tissues: Placenta, NOS Procedures: Surgery Specimen Level V HEADER OPERATION: Vaginal delivery PRE-OP DIAGNOSIS: 37 1/7wga, CHNT, DM TISSUE SUBMITTED: Placenta MICROSCOPIC DIAGNOSIS Ricardo placenta (356 gm): Umbilical cord - trivascular with no inflammation. Placental membranes - no pathologic change. Placental disc - focal organizing hemorrhage. Mild intervillous congestion. AM:byron 03/31/20 MICROSCOPIC DESCRIPTION Slides are reviewed. GROSS DESCRIPTION SPECIMEN: PLACENTA / CLINICAL INFORMATION: A. Weight: 2.695 kg B. Gestational Age: 37 weeks C. Sex: Female PLACENTAL WEIGHT (POST FIXATION): 356 gm PLACENTAL DIMENSIONS: 15 x 14 x 3 cm PLACENTAL SHAPE: Usual ovoid PLACENTAL WEIGHT FOR GESTATIONAL AGE: Within 10-99th percentile MEMBRANES - Present A. Insertion: The membranes are inserted in three-fourth circumference of placenta 1-3 cm away from the margin. B. Site of rupture from edge: 6 cm from edge of placental disc C. Color of membrane: Romero-main D. Abnormalities: None UMBILICAL CORD - Present A. Color: Romero-main B. Insertion: Paracentral and 4 cm segment of the placenta adherent on the surface of the placenta. C. Length: 27 cm D. Diameter: 1.2 cm E. Number of vessels: Maternal end of the umbilical cord shows only two blood vessels but end shows three blood vessels. F. Abnormalities: None PLACENTAL DISC - Present A. Color of surface: Romero-main B. surface abnormalities: None C. Maternal cotyledons: Intact with minimal tears D. Attached retro placental clot: No clot E. Cut surface: Dark red and spongy F. Lesions: None G. Separate clot: Absent SECTIONS SUBMITTED: 1. Membrane roll 2. Cord, maternal end, insertion of the membrane away from the margin 3. Cord, end, insertion of the membrane away from the margin 4. Placental disc, and maternal surfaces 5. Placental disc, and maternal surfaces 6. Placental disc, and maternal surfaces DAVIS:byron 03/27/20 TC:5 CPT: 36491
[2020-03-26] MEDS: Amnioinfusion- 0.9% NS 1,000 ML IV.SOLN. 300 ML INTRA-UTER (00:29)
[2020-03-26 00:30] LABS: Bedside Glucose 76 mg/dL (70-110)
--- NOTE | 2020-03-26 00:42 | PCM.PN.BLA ---
Progress Note LABOR PROGRESS NOTE Called to bedside for heart rate decelerations. Reports feeling pressure with contractions. AVSS Vital Signs Temp 97.7 F L 03/25/20 23:06 Pulse 75 03/25/20 23:55 BP 96/53 L 03/25/20 23:55 Pulse Ox 98 03/25/20 23:54 Intake & Output 03/24/20 03/25/20 03/26/20 23:59 23:59 23:59 Intake Total 2395.30 / 2395.30 373.33 / 373.33 Output Total 1150 / 1150 Balance 1245.30 / 1245.30 373.33 / 373.33 Weight: 121.563 kg Intake: Intake, IV Amount 2395.30 / 2395.30 373.33 / 373.33 Lactated Ringers 1,000 ML @ 50 1862.50 / 1862.50 373.33 / 373.33 mls/hr IV .Q20H YESICA Rx#: [id number] Lactated Ringers 500 ML @ 999 500 / 500 mls/hr IV .Q31M PRN Rx#: [id number] Oxytocin 30 units/NS 500 ml 30 32.80 / 32.80 UNITS/500 ML30 units In 500 ml @ 2 mls/hr IV .Q250H YESICA Rx#: [id number] Output: Urine 1150 / 1150 GEN - NAD, AAO x 3 FHR 115, moderate variability, + variable decelerations, then late decelerations, recurrent TOCO 3/10 min SVE FD/100/0 station. A/P: 34yo @ 37 1/7wga, hx cHTN, GDM, Cat II FHR -Deepening decelerations over the last hour -Pitocin d/c'd, O2 supplementation noted on my arrival. Amnioinfusion started and I pushed with pt over 3 contractions with variable appearing decelerations with slow recovery to baseline. When not pushing after amnioinfusion started decelerations resolved and FHR 115, moderate variability with + accelerations, no decelerations, return to Cat I. Unclear if sx exacerbated by low maternal BP, however, now resolved. -Will labor down for 30-60 min then reattempt pushing. STROKE Vital Signs/Narrative: Vital Signs Temp Pulse BP Pulse Ox 03/25/20 23:55 75 96/53 L 03/25/20 23:54 70 98 03/25/20 23:07 82 98/46 L 03/25/20 23:06 97.7 F L 81 100 03/25/20 22:06 97.7 F L 76 112/55 L 100 03/25/20 21:08 65 100 03/25/20 21:07 97.0 F L 70 107/55 L
[2020-03-26 01:26] LABS: Bedside Glucose 85 mg/dL (70-110)
[2020-03-26] MEDS: Oxytocin 30 units/NS 500 ml 30 UNITS/500 ML IV.SOLN 334 UNITS IV (03:12)
[2020-03-26 04:52] LABS: Bedside Glucose 96 mg/dL (70-110)
[2020-03-26 04:52] LABS: Bedside Glucose 86 mg/dL (70-110)
--- NOTE | 2020-03-26 06:48 | PCM.OPRPT ---
Problem List (1) 37 weeks gestation of Status: Acute (2) Gestational diabetes Status: Acute Qualifiers: Gestational diabetes mellitus control: insulin-controlled Trimester: third trimester Qualified Code(s): O24.414 - Gestational diabetes mellitus in , insulin controlled (3) Chronic hypertension Status: Chronic Vaginal Delivery Maternal Presentation: Medically Indicated Induction Method of Induction: Pitocin, Amniotomy, Cytotec Medical Reason for Induction: - - cHTN, gestational diabetes Amniotic Membrane Rupture Type: Artificial Rupture of Membrane time: 03/25/201940h Amniotic Fluid Description: Clear Final JANAE: 04/15/20 Final JANAE Source: US <20 weeks Gestational age: 37 Weeks and 1 Days Date of Procedure: 03/26/20 Pre-Operative Diagnosis: 37 1/7wga, gestational diabetes, chronic hypertension Post-Operative Diagnosis: 37 1/7wga, gestational diabetes, chronic hypertension Surgery/ Procedure Performed: Spontaneous Vaginal Delivery Anesthesiologist: Maddi Rivera Type of Anesthesia: Epidural Description of Procedure: Patient was FD/+3 on my arrival with Cat II FHR. She pushed to delivery over 3 contractions a vigorous female in direct OP with compound presentation. was placed on the maternal abdomen and further attended by nursery personnel. The cord was doubly clamped and cut at 1 minute of life. The placenta delivered spontaneously and appeared intact on inspection. A superficial vaginal laceration was repaired with 3-0 Vicryl Rapide with hemostasis attained. Perineum intact. Sponge and needle counts correct x 2. Presentation: Vertex Placental Delivery Description: Spontaneous Placenta Disposition: [facility] Cord Vessel Description: 3 Vessels Nuchal Cord Compression: Without compression Cord Entanglement: None Drain: Rendon to straight drain Estimated Blood Loss: 200 ml (1 minute): 8 (5 minute): 9 Episiotomy Description: None Laceration: Midline, Vaginal Extension/lac Medications given after delivery: IV Pitocin Complications: None
--- NOTE | 2020-03-26 07:17 | NURSING ---
gomez catheter removed
[2020-03-26] MEDS: Sertraline 50 MG Tablet 25 MG PO (10:21)
[2020-03-26 12:20] LABS: Pathology Specimen OB SEE PATHOLOGY REPORT
--- NOTE | 2020-03-26 21:19 | NURSING ---
this RN contacted dr jimenez to determine whether or not to give 2200 scheduled 400 mg labetolol dose. BP 119/[address] jimenez states to hold dose at this time and only give 100 mg labetolol at this time, instead. pharmacy to be notified of this.
[2020-03-26] MEDS: Labetalol 100 MG Tablet PO (21:35)
[2020-03-27 00:20] VITALS: BP 117/66; PULSE 78; RESP 18; TEMP 36.2; O2SAT 98
[2020-03-27 00:21] VITALS: BP 117/66; PULSE 76
[2020-03-27 02:59] VITALS: BP 124/78; PULSE 85; RESP 14; TEMP 36.6
[2020-03-27 05:55] LABS: Bedside Glucose 76 mg/dL (70-110)
--- NOTE | 2020-03-27 07:22 | PCM.PN.OB ---
Patient Problems: Active and Suspected Problems (Last Updated 03/25/20 @ 08:[address] Domenica Morrow MD) 37 weeks gestation of (Acute) Gestational diabetes (Acute) Subjective: No issues overnight. Feels well. Denies headache, vision changes, shortness of breath or chest pain, abdominal pain. She is , feels this is going well. Denies heavy lochia. Objective: AVSS - Physical Exam Vitals/I&O's: Vital Signs Temp Pulse Resp BP Pulse Ox 97.8 F 85 14 124/78 H 98 03/27/20 02:59 03/27/20 02:59 03/27/20 02:59 03/27/20 02:59 03/27/20 00:20 Oxygen Delivery Method Room Air Weight: 121.563 kg Body Mass Index (BMI) 44.6 Intake and Output for Last 24 Hours 03/25/20 03/26/20 03/27/20 23:59 23:59 23:59 Intake Total 2395.30 / 2395.30 2031.00 / 2031.00 Output Total 1150 / 1150 950 / 950 Balance 1245.30 / 1245.30 1081.00 / 1081.00 General: Alert, Oriented x3, Cooperative, No apparent distress HEENT: Atraumatic, Normocephalic Lungs: Clear to auscultation, Normal air movement, No rhonchi, No wheeze, No rales Cardiovascular: Regular rate, Regular Rhythm, Normal S1, Normal S2 Abdomen: Soft, Non Tender, Non-Distended, - - Fundus firm and nontender, lochia scant Extremities: No Calf Tenderness, - - trace nonpitting pedal edema Neurological: Neuro grossly intact Psych/Mental Status: Normal Affect, Appropriate, Alert and oriented to time, place, person, mood and affect Laboratory Results 03/27/20 05:49: POC Glucose 76 Current Medications Acetaminophen (Acetaminophen 500 Mg Tablet) 500 - 1,000 mg PO Q6H PRN PRN PRN Reason: Pain Score 1-3 Bisacodyl (Bisacodyl 10 Mg Suppository) 10 mg RECTAL UD PRN PRN Reason: If no BM Dextrose (Dextrose 50%-Water 25 Gm/50 Ml Disp.Syrin) 0 gm IV X1 PRN; Protocol PRN Reason: Hypoglycemia Dibucaine (Dibucaine 30 Gm Tube) 1 applic TOPICAL TID PRN PRN; Protocol PRN Reason: Discomfort Glucagon (Glucagon 1 Mg/Ml Syringe) 1 mg IM .X1 PRN PRN Reason: Hypoglycemia Hydrocortisone (Hydrocortisone 2.5% Crm) 1 applic TOPICAL TID PRN PRN; Protocol PRN Reason: Discomfort Ibuprofen (Ibuprofen 600 Mg Tablet) 600 mg PO Q6H PRN PRN PRN Reason: Pain Score 1-3 Labetalol HCl (Labetalol 100 Mg Tablet) 100 mg PO BID YESICA Methylergonovine Maleate (Methylergonovine 0.2 Mg/Ml Ampul) 0.2 mg IM X1 PRN PRN Reason: Excess bleeding/uterine atony Ondansetron HCl (Ondansetron 4 Mg/2 Ml Vial) 4 mg IV Q4H PRN PRN PRN Reason: NAUSEA Last Admin: 03/25/20 23:59 Dose: 4 mg Documented by: Senna/Docusate Sodium (Senna/Docusate Sodium 1 Tablet) 1 - 2 tablet PO DAILY PRN PRN PRN Reason: Constipation Sertraline HCl (Sertraline 50 Mg Tablet) 25 mg PO DAILY YESICA Last Admin: 03/26/20 10:21 Dose: 25 mg Documented by: Simethicone (Simethicone 80 Mg Tablet) 80 mg PO PCHS PRN PRN Reason: Indigestion/Stomach pain Sodium Chloride (0.9% Saline Lock 10 Ml Syringe) 5 - 15 ml IV UD PRN PRN Reason: SALINE FLUSH Medical Necessity - Tobacco Use Smoking Status: Current some day smoker Assessment/Plan All Active Problems (Last Updated 03/25/20 @ 08:[address] Domenica Morrow MD) 37 weeks gestation of (Acute) Gestational diabetes (Acute) This is a 34 year-old, G [4], P [3013 PPD#1 s/p doing well. -hx GDM - FS wnl, will follow up in 6-12 weeks outpatient. Reviewed with patient increased lifetime risk for DM and need for periodic monitoring. -Routine care - -cHTN - BPs appear to have normalized with reduction in labetalol dosing. Will maintain at 100mg PO bid. Pt to take home BPs 3-4x/week and record. -d/c home today. -f/u in 10-14 days for office BP and mood check
--- NOTE | 2020-03-27 07:28 | DCINST_ITS ---
Discharge Activity: Return to Normal Activity May resume sexual activity in: 4-6 weeks Lifting Restrictions: 20 lb Suture Line Care: Avoid Pulling/Pushing Additional Instructions: If you experience any of the following, contact your healthcare provider. * Bleeding that soaks a pad every hour for 2 hours * Fever 100.4 or higher * Unrelieved incision or abdominal pain * Swelling, redness, discharge or bleeding from your incision or episiotomy site * Your incision begins to separate * Problems urinating (including inability to urinate or burning while urinating). * Visual changes * Severe headache * Flu-like symptoms * Pain or redness in one of both of your breasts * Pain, warmth, tenderness or swelling in your legs, especially the calf area * Frequent nausea and vomiting * Symptoms of depression or anxiety If you experience any of the following, call 911 or go to the nearest Emergency Room. * Chest pain * Problems breathing * Seizure activity * Partial or complete paralysis of a body part, slurred speech, weakness or drooping of the face, or a sudden inability to walk or hold your balance Allergies/Adverse Reactions: Allergies rizatriptan [From Maxalt] Adverse Reaction (Verified 03/25/20 14:02) Nausea Medications to take at Discharge Pnv No.103/Folic/Om3s/Fish Oil [ Gummies] 1 ea PO DAILY 02/29/20 Sertraline HCl 25 mg PO DAILY 02/29/20 Labetalol [Trandate (Beta Sim)] 100 mg PO BID #60 tab 03/27/20 The following prescriptions were given: Labetalol [Trandate (Beta Sim)] 100 mg PO BID #60 tab [facility]: [id number] Please Follow Up With: Yeny Maya DO When: 1-2 weeks Primary Care Physician: Care Physician,No Primary [Primary Care Provider] - Test Results: Test results from this visit will be discussed in further detail at your follow- up appointment, if applicable.
--- NOTE | 2020-03-27 07:28 | PCM.DCVAG ---
Discharge Activity: Return to Normal Activity May resume sexual activity in: 4-6 weeks Lifting Restrictions: 20 lb Suture Line Care: Avoid Pulling/Pushing Additional Instructions: If you experience any of the following, contact your healthcare provider. Bleeding that soaks a pad every hour for 2 hours Fever 100.4 or higher Unrelieved incision or abdominal pain Swelling, redness, discharge or bleeding from your incision or episiotomy site Your incision begins to separate Problems urinating (including inability to urinate or burning while urinating). Visual changes Severe headache Flu-like symptoms Pain or redness in one of both of your breasts Pain, warmth, tenderness or swelling in your legs, especially the calf area Frequent nausea and vomiting Symptoms of depression or anxiety If you experience any of the following, call 911 or go to the nearest Emergency Room. Chest pain Problems breathing Seizure activity Partial or complete paralysis of a body part, slurred speech, weakness or drooping of the face, or a sudden inability to walk or hold your balance Allergies/Adverse Reactions: Allergies rizatriptan [From Maxalt] Adverse Reaction (Verified 03/25/20 14:02) Nausea Medications to take at Discharge Pnv No.103/Folic/Om3s/Fish Oil [ Gummies] 1 ea PO DAILY 02/29/20 Sertraline HCl 25 mg PO DAILY 02/29/20 Labetalol [Trandate (Beta Sim)] 100 mg PO BID #60 tab 03/27/20 The following prescriptions were given: Labetalol [Trandate (Beta Sim)] 100 mg PO BID #60 tab Transmission Status: Pending to [id number] Please Follow Up With: Yeny Maya DO When: 1-2 weeks Primary Care Physician: Care Physician,No Primary [Primary Care Provider] - Test Results: Test results from this visit will be discussed in further detail at your follow-up appointment, if applicable.
--- NOTE | 2020-03-27 07:29 | PCM.DC.SUM ---
Discharge Date and Diagnosis - Problem List Patient Problems: Active and Suspected Problems (Last Updated 03/25/20 @ 08:[address] Domenica Morrow MD) 37 weeks gestation of (Acute) Gestational diabetes (Acute) Date of Admission: 03/25/20 Date of Discharge: 03/27/20 - Primary Discharge Diagnosis Acute Problems: Active Problems (Last Updated 03/25/20 @ 08:[address] Domenica Morrow MD) 37 weeks gestation of (Acute) Gestational diabetes (Acute) - Secondary Discharge Diagnosis Chronic Problems: Chronic Problems (Last Updated 03/25/20 @ 08:[address] Domenica Morrow MD) Chronic hypertension (Chronic) Hospital Course and Treatment Operations: None Procedures: None Summary of Care Provided: The patient is a 34 year old F admitted at 37 wga for scheduled induction of labor, hx gestational diabetes on insulin and chronic hypertension on Labetalol and Nifedipine. She had an uncomplicated vaginal delivery on hospital day #2. During her stay, her blood pressures reduced significantly and her medication was titrated appropriately. Her blood sugars were also normal. She was discharged to home on hospital day #3/ #1. Patient Problems: Active and Suspected Problems (Last Updated 03/25/20 @ 08:[address] Domenica Morrow MD) 37 weeks gestation of (Acute) Gestational diabetes (Acute) - Physical Exam Vitals/I&O's: Vital Signs Temp Pulse Resp BP Pulse Ox 97.8 F 85 14 124/78 H 98 03/27/20 02:59 03/27/20 02:59 03/27/20 02:59 03/27/20 02:59 03/27/20 00:20 Oxygen Delivery Method Room Air Weight: 121.563 kg Body Mass Index (BMI) 44.6 Intake and Output for Last 24 Hours 03/25/20 03/26/20 03/27/20 23:59 23:59 23:59 Intake Total 2395.30 / 2395.30 2031.00 / 2031.00 Output Total 1150 / 1150 950 / 950 Balance 1245.30 / 1245.30 1081.00 / 1081.00 Laboratory Results 03/27/20 05:49: POC Glucose 76 Current Medications Acetaminophen (Acetaminophen 500 Mg Tablet) 500 - 1,000 mg PO Q6H PRN PRN PRN Reason: Pain Score 1-3 Bisacodyl (Bisacodyl 10 Mg Suppository) 10 mg RECTAL UD PRN PRN Reason: If no BM Dextrose (Dextrose 50%-Water 25 Gm/50 Ml Disp.Syrin) 0 gm IV X1 PRN; Protocol PRN Reason: Hypoglycemia Dibucaine (Dibucaine 30 Gm Tube) 1 applic TOPICAL TID PRN PRN; Protocol PRN Reason: Discomfort Glucagon (Glucagon 1 Mg/Ml Syringe) 1 mg IM .X1 PRN PRN Reason: Hypoglycemia Hydrocortisone (Hydrocortisone 2.5% Crm) 1 applic TOPICAL TID PRN PRN; Protocol PRN Reason: Discomfort Ibuprofen (Ibuprofen 600 Mg Tablet) 600 mg PO Q6H PRN PRN PRN Reason: Pain Score 1-3 Labetalol HCl (Labetalol 100 Mg Tablet) 100 mg PO BID YESICA Methylergonovine Maleate (Methylergonovine 0.2 Mg/Ml Ampul) 0.2 mg IM X1 PRN PRN Reason: Excess bleeding/uterine atony Ondansetron HCl (Ondansetron 4 Mg/2 Ml Vial) 4 mg IV Q4H PRN PRN PRN Reason: NAUSEA Last Admin: 03/25/20 23:59 Dose: 4 mg Documented by: Senna/Docusate Sodium (Senna/Docusate Sodium 1 Tablet) 1 - 2 tablet PO DAILY PRN PRN PRN Reason: Constipation Sertraline HCl (Sertraline 50 Mg Tablet) 25 mg PO DAILY YESICA Last Admin: 03/26/20 10:21 Dose: 25 mg Documented by: Simethicone (Simethicone 80 Mg Tablet) 80 mg PO PCHS PRN PRN Reason: Indigestion/Stomach pain Sodium Chloride (0.9% Saline Lock 10 Ml Syringe) 5 - 15 ml IV UD PRN PRN Reason: SALINE FLUSH Discharge Activity: Return to Normal Activity May resume sexual activity in: 4-6 weeks Suture Line Care: Avoid Pulling/Pushing Home Medications: Medications to take at Discharge Pnv No.103/Folic/Om3s/Fish Oil [ Gummies] 1 ea PO DAILY 02/29/20 Sertraline HCl 25 mg PO DAILY 02/29/20 Labetalol [Trandate (Beta Sim)] 100 mg PO BID #60 tab 03/27/20 Following Prescriptions Were Given to Patient: Labetalol [Trandate (Beta Sim)] 100 mg PO BID #60 tab Transmission Status: Pending to [facility] Primary Care Physician: Care Physician,No Primary [Primary Care Provider] - Please Follow Up With: Yeny Maya DO Medical Necessity - Tobacco Use Smoking Status: Current some day smoker Meaningful Use Info Meaningful Use Diagnoses (Choose all that apply): None applicable
[2020-03-27 08:30] VITALS: BP 139/74; PULSE 85; RESP 16; TEMP 37
[2020-03-27 08:43] VITALS: BP 139/74; PULSE 85
[2020-03-27] MEDS: Sertraline 50 MG Tablet 25 MG PO (10:31)
[2020-03-27] MEDS: Labetalol 100 MG Tablet PO (10:31)
--- NOTE | 2020-03-27 10:45 | CASEMGMT ---
Social Work Brief Assessment Labor and Delivery Unit Patient Address: [address] [place] [address] [address], [place] [address] Phone number: [phone] Date of Referral/Notification: 03/27/2020 Time of Referral: 1100 Referred By: Dr. Danay oMrrow Date of Intervention: 03/27/2020 Time of Intervention: 1045 Reason for Referral: History of depression Informant: Medical record and mother of baby (MOB) Carline Estrada History: MOB is a 34-year-old single female who delivered her third child, Hyun Kirk. MOB has 2 older children Iris is 5 and Luba is 4. Father of the baby (FOB) the father to the baby only, though has 3 other children of his own but he reportedly sees on a periodic basis. MOB and FOB have been together for 1-1/2 years. FOB is reported to be self-employed. And the MOB works as an [employer] NA at the [employer]. MOB is a high school graduate. MOB identifies the FOB and the MOB mother as primary support systems. No reports of any type of substance use issues. MOB does have a history of depression and anxiety treated with Zoloft. Denies any history of depression. Denies any history of children services. Denies any legal charges. Assessment: Met with the MOB alone in the room, and then later joined by the FOB. During private conversation MOB did denies any type of concerns in this relationship. MOB reports to feel her mood is fine right now, but did accept some resources in case concerns arise in the future. MOB reports to feel connected to her baby. There have been no concerns voiced by nursing staff regarding parent-child interactions or bonding. MOB reports to have stable housing, living with the father of baby. Reports to have transportation and to have all needed baby supplies to care for the baby at home. MOB is aware of shaken baby prevention and safe sleeping. Plan: MOB and to discharge home. [facility] resource list provided. mood and anxiety disorder packet provided, which includes area and online resources. No further needs requested or indicated. -DREW Markham, NAGI *Information documented in this assessment generated with [employer]*
== END 2020-03-27 11:30 | disposition home or self-care (01) | DRG 805 ==
PROVIDERS: Admitting Provider Obstetrics & Gynecology; Referring Provider Obstetrics & Gynecology; Visit Provider Obstetrics & Gynecology
DX: O24.424 Gestational diabetes mellitus in childbirth, insulin controlled (principal); O60.14X0 Preterm labor third trimester with preterm delivery third trimester, not applicable or unspecified; Z37.0 Single live birth; O71.4 Obstetric high vaginal laceration alone; O99.324 Drug use complicating childbirth; O99.354 Diseases of the nervous system complicating childbirth; O13.4 Gestational [pregnancy-induced] hypertension without significant proteinuria, complicating childbirth; G43.909 Migraine, unspecified, not intractable, without status migrainosus; O32.6XX0 Maternal care for compound presentation, not applicable or unspecified; O76 Abnormality in fetal heart rate and rhythm complicating labor and delivery; F17.200 Nicotine dependence, unspecified, uncomplicated; F19.90 Other psychoactive substance use, unspecified, uncomplicated; O99.344 Other mental disorders complicating childbirth; O99.334 Smoking (tobacco) complicating childbirth; F41.9 Anxiety disorder, unspecified; F32.9 Major depressive disorder, single episode, unspecified; Z3A.37 37 weeks gestation of pregnancy
CPT/HCPCS: 59025; 59050; 82962; 85025; 86850; 86900; 86901; 88307; 99218; J7030; J7120; A4216; G0378; J2405

== ENCOUNTER → 2020-05-06 15:06 | Outpatient (CLI) | payer OTHER, SELFPAY ==
[2020-03-25 07:08] VITALS: BMI 44.6
[2020-05-13 13:05] LABS: HPV APTIMA, High Risk Negative (Negative); HPV Reflexed? YES, CHARGE PATIENT
== END ==
LOC: LABSPEC 15:07
PROVIDERS: Visit Provider Student in an Organized Health Care Education/Training Program
DX: Z12.4 Encounter for screening for malignant neoplasm of cervix (principal)
CPT/HCPCS: 87624; 88175; G0145

== ENCOUNTER → 2023-05-27 | Outpatient (CLI) | payer MEDICAID, SELFPAY ==
--- OUTSIDE RECORDS SUMMARY | 2023-05-27 07:09 | XMS RPT_ITS | CCD ---
Author Name Unknown Address [address] [place] [address] Organization [facility] Care Team Providers Care Diesel Lube Tech Name Role Phone Slade Alexander Attending Lor Bonner Referring HAMLET Cat MD Primary Care Physician Unavailable Primary Care Provider Britney ROSARIO MD, ISMAEL Page Consulting SONIDO Nazario MD Attending SONIDO Nazario MD Admitting Anton QUIROS MD, HAMLET Primary Care Unavailable RONNI MCLAUGHLIN, RYLEY Attending DOC Henning MD Attending Unavailable ISHAAN QUESADA, HAMLET Primary Care DOC Christina MD Attending Unavailable DARRIN GARCIA, DR ARIZMENDI Primary Care Unavailable COLEEN SALES MD Attending U navailable DARRIN GARCIA, DR ARIZMENDI Primary Care Unavailable DARRIN GARCIA, DR ARIZMENDI Attending Unavailable RONNI MCLAUGHLIN, RYLEY Attending Unavailpatrick DE LA TORRE MD, DANAY Attending HAMLET Cat MD Primary Care Unavailable DARRIN GARCIA, DR ARIZMENDI Attending Unavailable DARRIN GARCIA, DR ARIZMENDI Primary Care Anton QUIROS MD, HAMLET Primary Care DANAY Gatica MD Attending Unavailable DARRIN GARCIA, DR ARIZMENDI Primary Care Unavailable DOC RITCHIE MD Attending Unavailable DANAY DE LA TORRE MD Attending Unavailable DANAY DE LA TORRE MD Consulting Unavailable ISHAAN QUESADA, HAMLET Primary Care Unavailable DOC RITCHIE MD Attending Unavailable ISHAAN QUESADA, HAMLET Primary Care Unavailable ISHAAN QUESADA, HAMLET Primary Care DANAY Gatica MD Attending Unavailable DOC RITCHIE MD Attending Unavailable DOC RITCHIE MD Attending Unavailable ISHAAN QUESADA, HAMLET Primary Care DOC Christina MD Attending Unavailable DOC RITCHIE MD Attending Unavailable ISHAAN QUEASDA, HAMLET Primary Care Unavailable ISHAAN QUESADA, HAMLET Primary Care DOC Christina MD Attending Unavailable DR KYLEIGH CLIFFORD DO Primary Care Physician [phone] Medications Current Medications Medication Drug Class(es) Dates Sig (Normalized) Sig (Original) acetaminophen 500 mg oral tablet (1 source) Start: 04-02-2022 End: 04-30-2022 Tylenol Extra Strength 500 mg oral tablet Dose : 500 mg = 1 tab(s), Oral, q4h, X 14 day(s), # 30 tab(s), 1 Refill(s), 04/30/22 7:09:00 EST, Pharmacy: [facility], 165, cm, 04/02/22 6:14:00 EST, Height Start Date: 04/02/22 Stop Date: 04/30/22 Status: Ordered acetaminophen 325 mg / oxyCODONE hydrochloride 5 mg oral tablet (1 source) Opioid Agonist Start: 04-02-2022 End: 04-09-2022 take 1 tablet by mouth every four hours as needed for pain Percocet 5 mg-325 mg oral tablet Dose = 1 tab(s), Oral, q4h, PRN for pain, not to exceed 4000 mg acetaminophen per day, X 7 day(s), # 12 tab(s), 0 Refill(s), Pharmacy: [facility], Postoperative pain, 165, cm, 04/02/22 6:14:00 EST, Height, 117 Start Date: 04/02/22 Stop Date: 04/09/22 Status: Ordered aspirin 81 mg delayed release oral tablet (11 sources) Platelet Aggregation Inhibitor, Nonsteroidal Anti-inflammatory Drug Start: 07-31-2021 End: 10-19-2023 aspirin 81 mg oral delayed release tablet Dose : 81 mg = 1 tab(s), Oral, Daily, # 30 tab(s), 0 Refill(s), Pharmacy: [facility], 164.6, cm, 10/29/22 11:05:00 EDT, Height, kg, 10/29/22 11:05:00 EDT, Dosing Weight Start Date: 10/29/22 Status: Ordered ferrous sulfate 325 mg oral tablet (2 sources) Start: 02-01-2022 IRON (ferrous sulfate 325 mg) 65 mg oral tablet Dose : 325 mg = 1 tab(s), Oral, qDay, # 30 tab(s), 0 Refill(s), Pharmacy: [id number], 162.6, cm, 01/28/22 22:02:00 EDT, Height Start Date: 02/01/22 Status: Ordered glyBURIDE 5 mg oral tablet (5 sources) Sulfonylurea Start: 12-21-2021 End: 02-19-2022 glyBURIDE 5 mg oral tablet Dose : 5 mg = 1 tab(s), Oral, BIDM, # 60 tab(s), 1 Refill(s), Pharmacy: [id number], 162.5, cm, 12/21/21 10:34:00 EDT, Height Start Date: 12/21/21 Stop Date: 02/19/22 Status: Ordered ibuprofen 800 mg oral tablet (4 sources) Nonsteroidal Anti-inflammatory Drug Start: 04-02-2022 End: 04-16-2022 ibuprofen 800 mg oral tablet Dose : 800 mg = 1 tab(s), Oral, q8h, X 14 day(s), # 42 tab(s), 0 Refill(s), 04/16/22 7:09:00 EST, Pharmacy: [id number], 165, cm, 04/02/22 6:14:00 EST, Height Start Date: 04/02/22 Stop Date: 04/16/22 Status: Ordered Completed/Discontinued Medications Medication Drug Class(es) Dates Sig (Normalized) Sig (Original) brompheniramine maleate 0.4 mg/ml / dextromethorphan hydrobromide 2 mg/ml / pseudoephedrine hydrochloride 6 mg/ml oral solution (2 sources) alpha-Adrenergic Agonist, Uncompetitive R-bbmchm-J-aspartat e Receptor Antagonist, Sigma-1 Agonist Start: 04-09-2022 take 5-10 mL by mouth every six hours as needed Brompheniramine -Pseudoeph-DM (BROMFED DM) 2-30-10 mg/5 mL syrup Take 5-10 ml po q6h prn 120 mL 0 04/09/2022 Active Problems Active Problems Problem Classification Problem Date Documented Date Episodic/Chronic Anxiety disorders (2 sources) 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 Attention-deficit, conduct, and disruptive behavior disorders (2 sources) Behavior showing reduced motor activity 10-19-2022 Episodic Contraceptive and procreative management (1 source) Sterilization requested; Translations: [Encounter for sterilization] Onset: 04-02-2022 Episodic Diabetes or abnormal glucose tolerance complicating ; childbirth; or the puerperium (14 sources) Gestational diabetes mellitus; Translations: [Gestational diabetes mellitus, class A>2< ] Onset: 01-28-2022 12-21-2021 Episodic Essential hypertension (15 sources) Hypertensive disorder 07-13-2021 Chronic Headache; including migraine (2 sources) Headache 11-17-2022 Episodic Heart valve disorders (2 sources) 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 Nonspecific chest pain (2 sources) Chest pain 09-29-2022 Episodic Other complications of (1 source) Maternal obesity complicating , childbirth and the puerperium, antepartum; Translations: [Obesity complicating , unspecified trimester] Onset: 01-28-2022 Chronic Other complications of (11 sources) Multigravida of advanced maternal age 0407-31-2021 Episodic Other complications of (1 source) Supervision of elderly multigravida, unspecified trimester; Translations: [ care: multiparous, older than 35 years (context-dependent category)] Onset: 01-28-2022 Episodic Other ear and sense organ disorders (1 source) Otalgia, left ear; Translations: [Otalgia, unspecified] Episodic Other nervous system disorders (1 source) Postoperative pain ; Translations: [Other acute postprocedural pain] Onset: 04-02-2022 Episodic Other nutritional; endocrine; and metabolic disorders (17 sources) Body mass index 30+ - obesity 06-29-2021 Chronic Other nutritional; endocrine; and metabolic disorders (13 sources) Obesity 07-31-2021 Chronic Other screening for suspected conditions (not mental disorders or infectious disease) (4 sources) Abnormal cytological findings in specimens from other organs, systems and tissues; Translations: [Other abnormal Papanicolaou smear of cervix and cervical HPV] Onset: 05-14-2008 05-14-2008 Episodic Other upper respiratory infections (1 source) Upper respiratory infection; Translations: [Acute upper respiratory infection, unspecified] Episodic Shantel-; endo-; and myocarditis; cardiomyopathy (except that caused by tuberculosis or sexually transmitted disease) (2 sources) Ejection murmur 09-29-2022 Chronic Polyhydramnios and other problems of amniotic cavity (1 source) Polyhydramnios; Translations: [Polyhydramnios, unspecified trimester, not applicable or unspecified] Onset: 01-28-2022 Episodic Residual codes; unclassified (11 sources) History of gestational hypertension 07-31-2021 Episodic Residual codes; unclassified (1 source) Gestation period, 36 weeks; Translations: [36 weeks gestation of ] Onset: 01-28-2022 Episodic Unclassified (11 sources) care: obstetric risk (context-dependent category) 07-31-2021 Past or Other Problems Problem Classification Problem Date Documented Da te Episodic/Chronic Hypertension complicating ; childbirth and the puerperium (3 sources) Pre-eclampsia; Translations: [Unspecified pre-eclampsia, unspecified trimester] Onset: 01-28-2022 Episodic Other and delivery including normal (20 sources) ; Translations: [Normal ] Onset: 05-21-2021 06-29-2021 Episodic Results Test Name Value Interpretation Reference Range Facil it Vital Signs Date Time Vital Sign Value Performing Clinician Facility 04-09-2022 10:47-0500 Body temperature 98.71 [degF] Teodora Hernandez APRN.CHALINO Work Phone: [facility] 04-09-2022 10:47-0500 Body weight 114.76 kg Teodora Hernandez APRN.CHALINO Work Phone: [facility] 04-09-2022 10:47-0500 Diastolic blood pressure 72 mm[Hg] Teodora Hernandez APRN.TUNNELLER Work Phone: [facility] 04-09-2022 10:47-0500 Heart rate 93 /min Teodora Hernandez APRN.TUNNELLER Work Phone: [facility] 04-09-2022 10:47-0500 Respiratory rate 16 /min Teodora Hernandez APRN.TUNNELLER Work Phone: [facility] 04-09-2022 10:47-0500 SaO2% (BldA) [Mass fraction] 98 % Teodora Hernandez APRN.CHALINO Work Phone: [facility] 01-06-2023 10:47-0500 Systolic blood pressure 120 mm[Hg] Teodora Hernandez APRNShardaTUNNELLER Work Phone: [facility] 04-02-2022 09:21-0500 Diastolic Blood Pressure Non-Invasive 78 1 DANAY DE LA TORRE MD [facility] 04-02-2022 09:21-0500 Heart rate 69 /min DANAY DE LA TORRE MD [facility] 04-02-2022 09:21-0500 Respiratory rate 14 /min DANAY DE LA TORRE MD [facility] 04-02-2022 09:21-0500 Systolic Blood Pressure Non-Invasive 135 1 DANAY DE LA TORRE MD [facility] 04-02-2022 09:07-0500 Diastolic Blood Pressure Non-Invasive 70 1 DANAY DE LA TORRE MD [facility] 04-02-2022 09:07-0500 Heart rate 76 /min DANAY DE LA TORRE MD [facility] 04-02-2022 09:07-0500 Respiratory rate 13 /min DANAY DE LA TORRE MD [facility] 04-02-2022 09:07-0500 Systolic Blood Pressure Non-Invasive 128 1 DANAY DE LA TORRE MD [facility] 04-02-2022 08:50-0500 Diastolic Blood Pressure Non-Invasive 63 1 DANAY DE LA TORRE MD [facility] 04-02-2022 08:50-0500 Heart rate 79 /min DANAY DE LA TORRE MD [facility] 04-02-2022 08:50-0500 Respiratory rate 14 /min DANAY DE LA TORRE MD [facility] 04-02-2022 08:50-0500 Systolic Blood Pressure Non-Invasive 124 1 DANAY DE LA TORRE MD [facility] 04-02-2022 08:25-0500 Body temperature 96.8 [degF] DANAY DE LA TORRE MD [facility] 04-02-2022 08:20-0500 Respiratory Rate - Anes 11 br/min DANAY DE LA TORRE MD [facility] 04-02-2022 08:15-0500 Respiratory Rate - Anes 11 br/min DANAY DE LA TORRE MD [facility] 04-02-2022 08:10-0500 Respiratory Rate - Anes 16 br/min DANAY DE LA TORRE MD [facility] 04-02-2022 06:07-0500 Body height 165 cm DANAY DE LA TORRE MD [facility] 04-02-2022 06:07-0500 Body temperature 98.06 [degF] DANAY DE LA TORRE MD [facility] 04-02-2022 06:07-0500 Body weight 117 kg DANAY DE LA TORRE MD [facility] 04-02-2022 06:07-0500 Heart rate 80 /min DANAY DE LA TORRE MD [facility] 03-22-2022 12:57-0500 Body height 165 cm DANAY DE LA TORRE MD [facility] 03-22-2022 12:57-0500 Body weight 117 kg DANAY DE LA TORRE MD [facility] 11-01-2022 10:58-0400 Diastolic blood pressure 68 mm[Hg] SONIDO ROMERO MD [facility] 02-02-2022 10:58-0400 Heart rate 91 /min SONIDO ROMERO MD [facility] 02-02-2022 10:58-0400 Mean blood pressure 94 mm[Hg] SONIDO ROMERO MD [address] [place] [address] 02-02-2022 10:58-0400 Reason For Taking VItal Signs SONIDO ROMERO MD [address] [place] [address] 02-02-2022 10:58-0400 Systolic blood pressure 145 mm[Hg] SONIDO ROMERO MD [address] 02-02-2022 09:47-0400 Diastolic blood pressure 79 mm[Hg] SONIDO ROMERO MD [address] 02-02-2022 09:47-0400 Mean blood pressure 104 mm[Hg] SONIDO ROMERO MD [address] 02-02-2022 09:47-0400 Systolic blood pressure 153 mm[Hg] SONIDO ROMERO MD [address] 02-02-2022 09:44-0400 Body temperature 98.78 [degF] SONIDO ROMERO MD [address] 02-02-2022 09:44-0400 Diastolic blood pressure 79 mm[Hg] SONIDO ROMERO MD [address] 02-02-2022 09:44-0400 Heart rate 94 /min SONIDO ROMERO MD [address] [place] [address] 02-02-2022 09:44-0400 Mean blood pressure 104 mm[Hg] SONIDO ROMERO MD [address] 02-02-2022 09:44-0400 Reason For Taking VItal Signs SONIDO ROMERO MD [address] [place] [address] 02-02-2022 09:44-0400 Respiratory rate 18 /min SONIDO ROMERO MD [facility] 02-02-2022 09:44-0400 Systolic blood pressure 153 mm[Hg] SONIDO ROMERO MD [facility] 02-02-2022 03:19-0400 Body temperature 98.24 [degF] SONIDO ROMERO MD [facility] 02-02-2022 03:19-0400 Heart rate 84 /min SONIDO ROMERO MD [facility] 02-02-2022 03:19-0400 Respiratory rate 16 /min SONIDO ROMERO MD [facility] 02-01-2022 23:46-0400 Body temperature 98.42 [degF] SONIDO ROMERO MD [facility] 02-01-2022 23:46-0400 Heart rate 78 /min SONIDO ROMERO MD [facility] 02-01-2022 23:46-0400 Respiratory rate 16 /min SONIDO ROMERO MD [facility] 01-28-2022 22:02-0400 Body height 162.6 cm SONIDO ROMERO MD [facility] 01-28-2022 22:02-0400 Body weight 126 kg SONIDO ROMERO MD [facility] 01-28-2022 22:02-0400 Body weight 47.66 kg/m2 SONIDO ROMERO MD [facility] 01-28-2022 20:47-0400 Diastolic blood pressure 72 mm[Hg] DANAY DE LA TORRE MD [facility] 01-28-2022 20:47-0400 Heart rate 78 /min DANAY DE LA TORRE MD [facility] 01-28-2022 20:47-0400 Mean blood pressure 77 mm[Hg] DANAY DE LA TORRE MD [facility] 01-28-2022 20:47-0400 Respiratory rate 18 /min DANAY DE LA TORRE MD [facility] 01-28-2022 20:47-0400 Systolic blood pressure 87 mm[Hg] DANAY DE LA TORRE MD [facility] 01-28-2022 20:32-0400 Diastolic blood pressure 74 mm[Hg] DANAY DE LA TORRE MD [facility] 01-28-2022 20:32-0400 Heart rate 93 /min DANAY DE LA TORRE MD [facility] 01-28-2022 20:32-0400 Mean blood pressure 85 mm[Hg] DANAY DE LA TORRE MD [facility] 01-28-2022 20:32-0400 Respiratory rate 18 /min DANAY DE LA TORRE MD [facility] 01-28-2022 20:32-0400 Systolic blood pressure 108 mm[Hg] DANAY DE LA TORRE MD [facility] 01-28-2022 20:17-0400 Diastolic blood pressure 62 mm[Hg] DANAY DE LA TORRE MD [facility] 01-28-2022 20:17-0400 Heart rate 96 /min DANAY DE LA TORRE MD [facility] 01-28-2022 20:17-0400 Mean blood pressure 84 mm[Hg] DANAY DE LA TORRE MD [facility] 01-28-2022 20:17-0400 Respiratory rate 18 /min DANAY DE LA TORRE MD [facility] 01-28-2022 20:17-0400 Systolic blood pressure 129 mm[Hg] DANAY DE LA TORRE MD [facility] 01-28-2022 19:47-0400 Body temperature 98.24 [degF] DANAY DE LA TORRE MD [facility] 01-28-2022 19:00-0400 Body height 162.65 cm DANAY DE LA TORRE MD [facility] 01-28-2022 19:00-0400 Body weight 128 kg DANAY DE LA TORRE MD [facility] 01-28-2022 19:00-0400 Body weight 48.38 kg/m2 DANAY DE LA TORRE MD [facility] 01-28-2022 13:30-0400 Diastolic blood pressure 59 mm[Hg] DOC RITCHIE MD [facility] 01-28-2022 13:30-0400 Heart rate 85 /min DOC RITCHIE MD [facility] 01-28-2022 13:30-0400 Mean blood pressure 81 mm[Hg] DOC RITCHIE MD [facility] 01-28-2022 13:30-0400 Systolic blood pressure 124 mm[Hg] DOC RITCHIE MD [facility] 01-28-2022 12:30-0400 Diastolic blood pressure 58 mm[Hg] DOC RITCHIE MD [facility] 01-28-2022 12:30-0400 Heart rate 90 /min DOC RITCHIE MD [facility] 01-28-2022 12:30-0400 Mean blood pressure 78 mm[Hg] DOC RITCHIE MD [facility] 01-28-2022 12:30-0400 Systolic blood pressure 118 mm[Hg] DOC RITCHIE MD [facility] 01-28-2022 12:04-0400 Body height 162.6 cm DOC RITCHIE MD [facility] 01-28-2022 12:04-0400 Body weight 122.7 kg DOC RITCHIE MD [facility] 01-28-2022 12:04-0400 Body weight 46.41 kg/m2 DOC RITCHIE MD [facility] 01-28-2022 12:00-0400 Diastolic blood pressure 61 mm[Hg] DOC RITCHIE MD [facility] 01-28-2022 12:00-0400 Heart rate 89 /min DOC RITCHIE MD [facility] 01-28-2022 12:00-0400 Mean blood pressure 86 mm[Hg] DOC RITCHIE MD [facility] 01-28-2022 12:00-0400 Systolic blood pressure 135 mm[Hg] DOC RITCHIE MD [facility] Encounters Encounter Date Encounter Type Care Provider Facility Start: 11-19-2022 End: 11-19-[address] KYLEIGH CLIFFORD DO [facility] Start: 11-19-2022 End: 11-19-2022 Patient encounter procedure COLEEN SALES MD [facility] Start: 08-02-[address] KYLEIGH CLIFFORD DO Facili ty:[facility] Start: 10-22-2022 End: 10-23-[address] KYLEIGH CLIFFORD DO Facility:[facility] Start: 10-18-2022 End: 10-19-[address] KYLEIGH CLIFFORD DO Facility:[facility] Start: 08-24-2022 Telephone encounter Slade Tavares MD Work Phone: General Surgery Procedures Date Procedure Procedure Detail Performing Clinician Start: 10-22-2022 Cardiovascular stress testing COLEEN SALES MD Plan of Treatment Date Care Activity Detail Author Start: 12-03-2022 Influenza vaccination INFLUENZA (Sea son Ended) [facility] Start: 04-04-2022 DEPRESSION ASSESSMENT DEPRESSION ASS ESSMENT [facility] Start: 12-03-2021 Influenza vaccination INFLUENZA (#1) [facility] Start: 2014 HPV TESTING HPV TESTING [facility] Start: 04-22-2013 PAP TESTING PAP TESTING [facility] Start: 10-16-2003 Urine microalbumin profile DTAP,TDAP,TD (1 - Tdap) [facility] Start: 2002 HEPATITIS C SCREENING HEPATITIS C SC REENING [facility] Start: 2002 HIV SCREENING HIV SCREENING [facility] Start: 1990 PNEUMOCOCCAL (1 - PCV) PNEUMOCOCCAL (1 - PCV) [facility] Start: 04-17-1985 COVID-19 VACCINE (#1) COVID-19 VACCI NE (#1) [facility] Start: 1984 HEPATITIS B (1 of 3 - 3-dose series) HEPATITIS B (1 of 3 - 3-dose series) [facility] Immunizations Immunization Date Immunization Notes Care Provider Fa cility 01-07-2022 tetanus toxoid, reduced diphtheria toxoid, and acellular pertussis vaccine, adsorbed; Translations: [Boostrix (Tdap)] DOC RITCHIE MD [facility] 10-18-2020 SARS-CoV-2 (COVID-19 ) [id number] vaccine COLEEN SALES MD [facility] 09-20-2020 SARS-CoV-2 (COVID-19 ) [id number] vaccine COLEEN SALES MD [facility] Payers Date Payer Category Payer Unknown [id number] 2020 Medicaid [id number] 2020 Medicaid [id number] 1984 Unknown [id number] 2.16. [id number] 1984 Unknown [id number] 2.16. [id number] 1984 Unknown [id number] 2.16.8 40.1.078849.3.579.2. 1984 Unknown [id number] 2.16.8 40.1.085526.3.579.2. 1984 Unknown [id number] 2.16.8 40.1.767984.3.579.2. 1984 Unknown [id number] 2.16.8 40.1.072991.3.579.2. 1984 Unknown [id number] 2.16.8 40.1.764802.3.579.2.7 1984 Unknown [id number] 2.16.8 40.1.884061.3.579.2. 1984 Unknown [id number] 2.16.8 40.1.287708.3.579.2. 1984 Unknown [id number] 2.16.8 40.1.951541.3.579.2. 1984 Unknown [id number] 2.16.8 40.1.036012.3.579.2. 1984 Unknown [id number] 2.16.8 40.1.122644.3.579.2. 1984 Unknown [id number] 2.16.8 40.1.878266.3.579.2.627 1984 Unknown [id number] 2.16.8 40.1.850355.3.579.2.627 1984 Unknown [id number] 2.16.8 40.1.572537.3.579.2. 1984 Unknown [id number] 2.16.8 40.1.604471.3.579.2.7 1984 Unknown [id number] 2.16.8 40.1.414237.3.579.2. 1984 Unknown [id number] 2.16.8 40.1.583176.3.579.2. 1984 Unknown [id number] 2.16.8 40.1.073898.3.579.2. 1984 Unknown [id number] 2.16.8 40.1.281910.3.579.2. 1984 Unknown [id number] 2.16.8 40.1.129795.3.579.2. Unknown [id number] Social History Date Type Detail Facility Start: 06-29-2021 Tobacco smoking status Ex-smoker (fi nding) [facility] Sex Assigned At Sex [facility] Start: 04-09-2022 Tobacco smoking stat us NDIS Smokes tobacco daily [facility] Start: 04-09-2022 Tobacco use and exposure Smokeless tobacco non-user [facility] Start: 04-09-2022 Alcohol intake Lifetime non-d mak (finding) [facility] Start: 04-09-2022 [facility] Start: 1984 Sex Assigned At Not on file [facility] Medical Equipment Procedure Code Equipment Code Equipment Origin al Text Equipment Identifier Dates See Instructions , Check 4x/Day, 120 strips for a One Touch Ultra 2, # 1 EA, 0 Refill(s), Pharmacy: [id number], AMA (advanced maternal age) multigravida 35+, 162.5, cm, 12/21/21 10:34:00 EDT, Height Start: 12-21-2021 See Instructions , Check 4x/Day, 120 strips for a One Touch Ultra 2, # 1 EA, 0 Refill(s), Pharmacy: [facility], AMA (advanced maternal age) multigravida 35+, 162.5, cm, 12/21/21 10:34:00 EDT, Height Start: 12-21-2021 See Instructions , Check 4x/Day, 120 strips for a One Touch Ultra 2, # 1 EA, 0 Refill(s), Pharmacy: [facility], AMA (advanced maternal age) multigravida 35+, 162.5, cm, 12/21/21 10:34:00 EDT, Height Start: 12-21-2021 See Instructions , Check 4x/Day, 120 strips for a One Touch Ultra 2, # 1 EA, 0 Refill(s), Pharmacy: [facility], AMA (advanced maternal age) multigravida 35+, 162.5, cm, 01/14/22 10:27:00 EDT, Height Start: 01-18-2022 See Instructions , Check 4x/Day, 120 strips for a One Touch Ultra 2, # 1 EA, 0 Refill(s), Pharmacy: [facility], AMA (advanced maternal age) multigravida 35+, 162.5, cm, 01/14/22 10:27:00 EDT, Height Start: 01-18-2022 Functional Status Date Assessment Result Facility 04-02-[address] [facility] 04-02-[address] [facility] 03-22-2022 Functional Status Sensory Deficits None [facility] 02-02-2022 Functional Status Eating, Rooming in [facility] 02-02-2022 Functional Status [facility] 02-02-2022 Functional Status [facility] 02-02-2022 Functional Status [facility] 02-01-2022 Functional Status [facility] 02-01-2022 Functional Status [facility] 01-30-2022 Functional Status Shantel Care Independent A [facility] 01-30-2022 Functional Status bilateral knee high [facility] 01-29-2022 Functional Status Done 1 [facility] 01-28-[address] [facility] Mental Status Date Assessment Result Facility 04-02-2022 Mental Status Oriented x 4 [facility] 01-31-2022 Mental Status Orientation Oriented x 4 [facility] 01-30-2022 Mental Status [facility] 01-30-2022 Mental Status [facility] 01-28-2022 Mental Status Orientation Oriented x 4 [facility] Clinical Notes 09-14-2007 to 11-19-2022 Note Date & Type Note Facility 11-19-2022 Note ORIGINAL NM MYOCARDIAL SPECT STRESS/REST CLINICAL STATEMENT:Chest pain, exercise intolerance, LAWRENCE TECHNIQUE: Stress Protocol:Michele Time Exercised:Six minutes Predicted Max HR:182 beats per minute Max HR Achieved:157 beats per minute. Percent Max HR:86 Peak Systolic BP:172 mmHg Rate-Pressure product: 24,800 Radiopharmaceutical(rest): Tc-99m Sestamibi IV Dose:10.4 mCi Radiopharmaceutical(stress): Tc-99m Sestamibi IV Dose:31.8 mCi SPECT acquisition: SPECT reconstruction and reorientation into short axis, vertical and horizontal long axis planes Quantitative LVEF assessment COMPARISON:None REPORT:The heart is normal in size. On gated images the ejection fraction is normal at 65% with normal wall motion. On stress images there is a mild decrease in the uptake of activity in the anterior wall with no improvement in uptake noted on rest images. IMPRESSION: 1. No evidence of significant inducible ischemia or prior infarction. 2. Normal ejection fraction of 65% with normal wall motion. 3. Breast tissue attenuation artifact. Interpreted By: Jasmeet Walker MD Preliminary Report By: Jasmeet Walker MD Electronically Signed By: Jasmeet Walker MD Dictated Date: 11/19/2022 2:04:43 PM Prelim Date: 11/19/2022 2:04:43 PM Sign Date: 11/19/2022 2:08:24 PM Ordering Provider:Coleen Sales [facility] 05-23-2023 Miscellaneous Notes* Telephone Encounter - Stephanie Vanessa - 08/24/2022 11:55 AM EDT Pt spouse calling to get an appt with dr. Tavares as she has a cyst on her head. I advised that general surgery requires a referral and she should see pcp first. Pt does not have pcp and spouse said he comes to dr. Tavares without referrals. Please review and advise what is appropriate documented in this encounterUniversity [facility] Influenza virus A and B RNA and SARS-CoV-2 (COVID-19) N gene panel DEANA+probe (Resp)COVID 19 RESULT: SARS-CoV-2 (Agent of COVID-19) Not Detected by RT-PCR or equivalent method. vera [id number] [employer] (ENEIDA)_EUA This test was developed and its performance characteristics determined by [facility] [place]. This test has been authorized by FDA under an Emergency Use Authorization (EUA). This test has been validated in accordance with the FDA's Guidance Document Policy for DiagnosticsTesting in Laboratories Certified to Perform High Complexity Testing under CLIA prior to Emergency use Authorization for Coronavirus Disease 2019 during the Public Health Emergency issued on June 02, 2019. Test performed by [facility], [facility] [place], [address] [place] [address]. INFLUENZA A PCR: Negative for Influenza A by RT-PCR INFLUENZA B PCR: Negative for Influenza B by RT-PCRMercy Health Lorain HospitalComment on above: Performed By: #### [id number] #### [facility] CLIA [id number] [address] [place] [address] STATES OF [id number] NoteHNO ID: [id number] Author: Teodora Hernandez APRN.TUNNELLER Service: ? Author Type: Nurse Practitioner Type: Progress Notes Filed: 04/09/2022 11:10 AM Note Text: Subjective The history is provided by the patient. No family day carer was used. HPI Carline Borden is a 36 year old female who presents today for CC of cough, congestion for a week, and left ear pain for 2 days. She has used tylenol with short term relief. She has not done any testing. She was exposed to influenza A. 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 HENT: Positive for congestion, ear pain (left) and sinus pain. Negative for sore throat. Respiratory: Positive for cough. Negative for sputum production, shortness of breath and wheezing. Cardiovascular: Negative for chest pain. Musculoskeletal: Negative for myalgias. Neurological: Negative for headaches. Objective Physical Exam Vitals and nursing note reviewed. HENT: Head: Normocephalic and atraumatic. Right Ear: Tympanic membrane, ear canal and external ear normal. Left Ear: Ear canal and external ear normal. A middle ear effusion is present. Tympanic membrane is bulging. Nose: No mucosal edema, congestion or rhinorrhea. Right Sinus: No maxillary sinus tenderness or frontal sinus tenderness. Left Sinus: No maxillary sinus tenderness or frontal sinus tenderness. Mouth/Throat: Pharynx: Uvula midline. No oropharyngeal exudate or posterior oropharyngeal erythema. Cardiovascular: Rate and Rhythm: Normal rate and regular rhythm. Heart sounds: Normal heart sounds. Pulmonary: Effort: Pulmonary effort is normal. Breath sounds: Normal breath sounds. Lymphadenopathy: Head: Right side of head: No submental, submandibular or tonsillar adenopathy. Left side of head: No submental, submandibular or tonsillar adenopathy. Cervical: No cervical adenopathy. Skin: General: Skin is warm and dry. Neurological: Mental Status: She is alert. Psychiatric: Mood and Affect: Affect normal. ASSESSMENT/PLAN: 1. URI with cough and congestion - ICD9: 465.9, ICD10: J06.9 (primary diagnosis) - Discussed viral etiology and rationale for treatment. - Symptomatic treatment with prn analgesia - Supportive care with fluids and rest - Past window for tamiflu, wanted to know, has 2 month old at home. - Bromfed - COVID WITH FLUA+B, ROUTINE 2. Left ear pain - ICD9: 388.70, ICD10: H92.02 Appears to be eustachian tube dysfunction Bromfed Flonase Tylenol prn. Diagnosis and treatment plan were discussed and questions were answered to the patient's satisfaction. Pt acknowledged understanding of concepts and follow up plan. Specific signs and symptoms that would indicate the need for higher level of care were discussed in detail warranting prompt ER evaluation. Teodora Hernandez APRN.CNPMercy Health [facility] Hospital01-06-2023 Instructions* Patient Instructions* Teodora Hernandez APRN.CNP - 04/09/2022 11:09 AM EST Rest, increase water intake Motrin or Tylenol as needed for fever or pain. Salt water gargles, chloraseptic spray or lozenges as needed for sore throat. Warm beverages, honey. Nasal saline spray as needed Cool mist humidifier at night A cold normally lasts 7-10 days. If your symptoms are lasting longer, develop fever, or worsening by that time instead of improving then return to clinic or follow up with PCP for re-evaluation. Bromfed Tylenol (generic acetaminophen) 500 mg-2 tabs every 8 hrs. as needed for fever and aches Ibuprofen 600 mg (3-200mg tablets) every 6 hours Flonase or Nasonex 2 sprays in each nostril once a day documented in this encounterUniversity Hospitals [facility]01-06-2023 History of Present illness Narrative* Teodora Hernandez APRN.CNP - 04/09/2022 10:54 AM EST Subjective The history is provided by the patient. No family day carer was used. HPI Carline Borden is a 36 year old female who presents today for CC of cough, congestion for aweek, and left ear pain for 2 days. She has used tylenol with short term relief. She has not done any testing. She was exposed to influenza A. 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 HENT: Positive for congestion, ear pain (left) and sinus pain. Negative for sore throat. Respiratory: Positive for cough. Negative for sputum production, shortness of breath and wheezing. Cardiovascular: Negative for chest pain. Musculoskeletal: Negative for myalgias. Neurological: Negative for headaches. Objective Physical Exam Vitals and nursing note reviewed. HENT: Head: Normocephalic and atraumatic. Right Ear: Tympanic membrane, ear canal and external ear normal. Left Ear: Ear canal and external ear normal. A middle ear effusion is present. Tympanic membrane isbulging. Nose: No mucosal edema, congestion or rhinorrhea. Right Sinus: No maxillary sinus tenderness or frontal sinus tenderness. Left Sinus: No maxillary sinus tenderness or frontal sinus tenderness. Mouth/Throat: Pharynx: Uvula midline. No oropharyngeal exudate or posterior oropharyngeal erythema. Cardiovascular: Rate and Rhythm: Normal rate and regular rhythm. Heart sounds: Normal heart sounds. Pulmonary: Effort: Pulmonary effort is normal. Breath sounds: Normal breath sounds. Lymphadenopathy: Head: Right side of head: No submental, submandibular or tonsillar adenopathy. Left side of head: No submental, submandibular or tonsillar adenopathy. Cervical: No cervical adenopathy. Skin: General: Skin is warm and dry. Neurological: Mental Status: She is alert. Psychiatric: Mood and Affect: Affect normal. ASSESSMENT/PLAN: 1. URI with cough and congestion - ICD9: 465.9, ICD10: J06.9 (primary diagnosis) - Discussed viral etiology and rationale for treatment. - Symptomatic treatment with prn analgesia - Supportive care with fluids and rest - Past window for tamiflu, wanted to know, has 2 month old at home. - Bromfed - COVID WITH FLUA+B, ROUTINE 2. Left ear pain - ICD9: 388.70, ICD10: H92.02 Appears to be eustachian tube dysfunction Bromfed Flonase Tylenol prn. Diagnosis and treatment plan were discussed and questions were answered to the patient's satisfaction. Pt acknowledged understanding of concepts and follow up plan. Specific signs and symptoms that would indicate the need for higher level of care were discussed indetail warranting prompt ER evaluation. Teodora Hernandez APRN.TUNNELLER documented in this encounterUniversity Hospitals Lake [facility] Center12-30-2022 Evaluation + Plan note Extracted from: Title:History and Physical Author:CARRI DE LA TORRE MD Date:04/02/22 Admission for sterilization reviewed postop expectations and instructions follow up in 2 weeks for incision check Orders: Lactated Ringers Infusion 1000 mL, Start: 04/02/22 6:00:00 EST, 18 hour(s), Stop date 04/03/22 17:59:00 EST, Rate: 25 mL/hr IV Catheter Insertion/Care NPO Sequential Compression Device Application Sign Consent Sign Consent Future Scheduled Tests Laboratory* Glucose 2 Hour Post Prandial 02/08/22 * Lipid Profile 03/15/22 [facility] 12-30-2022 Nurse Progress note GOING HOME INSTRUCTIONS REVIEWED WITH PT AND SPOUSE. PT ABULATES TO B/R URINATES WITHOUT PROBLEMS. DRESSINGS REMAIN DRY AND INTACT. IV REMOVED AND PT DISCHARGED TO HOME. Digitally Signed by Emilie Crews RN on 04/02/2022 09:39 AM [facility]12-30-2022 Hospital Discharge instructions Patient Education 04/02/2022 07:08:26 8- Post Op CUSHION FORMER Surgery (03/2020) (CUSTOM) What to Do After Your Gynecology Surgery This sheet will give you general information on what to do when you are home after surgery. However, you should always follow any specific instructions given to you by your surgeon. Pain Medication Please follow the directions on the label of your medication and use your discharge medication listprovided by the hospital. Do not take this medication on an empty stomach. This may cause a stomachache. Use a stool softener or gentle laxative (milk of magnesia) if needed. Constipation is not uncommon while taking oral pain medication. Use less of any narcotic pain medication as soon as your pain allows. You may take dbrc-rgi-kokilrrruwe medication if you no longer need your prescribed pain medication. Cvfs-akp-kvmgsnn pain medications are Tylenol (acetaminophen) or Advil (ibuprofen). Do not take Tylenol if you are still taking [place] or Percocet. They are the same type of medication. Too much acetaminophen can hurt your liver. Activity It is OK to use the stairs, but try to avoid them or take less trips right after surgery. After surgery, you may feel tired. Rest is important for healing. Slowly increase your activity level by walking and doing normal activities as you feel comfortable. Follow surgeon instructions on driving. You may not be able to drive for one to six weeks dependingon what surgery and incisions you have. Do not drive while taking narcotic pain medication. They should be out of your system for 24 hours. Diet Eating smaller meals instead of three large meals is good. This may help with your appetite and nutrition. Good nutrition will help you heal. Follow diet instructions that you were taught after surgery. Infection Prevention Washing your hands is one of the best ways to prevent infection. Always wash your hands before and after touching your incision or dressing. Hands carry germs that can cause infections. Try not to touch your incision. Keep the Incision Clean Wear clean, loose-fitting clothes to prevent clothes from rubbing on the incision. Put clean sheets on your bed when you get home. Do not let other people or animals touch the incision. Showering You may start to shower 24 hours after your surgery. Use a clean washcloth and towel on your incision before you use it on any other area of your body. Adjust the shower spray to gentle and use warm water. Gently wash over your incision using antibacterial soap and water and pat it dry. Do not rub the incision. Do not soak or submerge in the bathtub or hot tub until your surgeon says it is OK. Wound Care When you go home, you may leave your incision(s) open to the air. Your incision(s) may be closed with sutures or rakesh. If incision is closed with sutures under the skin, you do not need to have these removed as they will dissolve on their own. If incision is closed with rakesh, the rakesh will need to be removed. If your incision is horizontal (sideways), they need to be removed within three to seven days. If your incision is vertical (up and down), they need to be removed within 10 14 days. If you have thin white tape strips (Steri-Strips) over your incision, keep them dry. Do not remove them unless they begin curling up at the sides and are almost falling off or have been in place for seven days. If your incision begins coming apart, has drainage (thick, foul smelling, white, yellow, green, pink or red) with redness around the incision and feels warm to touch, call your surgeon. You may have an infection. Vaginal Care You may have drainage after surgery. Normal colors are watery, brown-black discharge. Vaginal spotting and bleeding are normal. However, if you are soaking two pads in one hour, that isnot normal. Call your surgeon. No tampons or douching. NO SEXUAL INTERCOURSE FOR 2 WEEKS. Call Your Doctor If: Your pain is not controlled by pain medication. You have a fever of 100.4 degrees or higher. You have a lot of bleeding from the incision or a lot of vaginal bleeding (more than two pads per hour). You have bad stomach pain or you start throwing up. If you are unable to reach your doctor, go to the hospital. Follow Up If a follow-up appointment has not been made, please call your surgeon s office within a day. Let the office know if you have rakesh and they will schedule them to be removed. Contact your surgeon for any specific problems or questions that you may have. Follow Up Care 02/17/2022 12:59:22 With:DANAY DE LA TORRE Address: [address] [place] [address] [phone] Business (1) When:Within 2 Week(s) [facility] 12-30-2022 Summary of episode note Discharge Instructions Thank you for allowing [facility] to assist you with your healthcare needs. The following is importantdischarge information regarding your hospital visit. Your Diagnosis Admission for sterilization Postoperative pain What to do next Follow Up Appointments Follow Up with DANAY DE LA TORRE When In 2 weeks [facility] [address] [facility] [address] [facility] [place] [address]- [phone] Business (1) The Following Activity and Diet Have Been Ordered for You Discharge Activity - Ordered -- Lifting Restricted less than 10 pounds, 04/02/22 8:29:00 EST Discharge Driving Restrictions - Ordered -- No driving until pain-free, 04/02/22 8:29:00 EST Discharge Return to Work, School, or Sports (Discharge Return to status) - Ordered -- within 2 weeks, May return to: work, 04/02/22 8:29:00 EST Discharge Diet - Ordered -- Follow the post-operative/post-procedure diet instructions provided by your physician's office.,04/02/22 8:29:00 EST The Following Equipment Has Been Ordered for You Discharge Home Equipment Discharge Wound Care - Ordered -- Follow the post-operative/post-procedure wound care instructions provided by your physician's office., 04/02/22 8:29:00 EST The Following Treatments Have Been Ordered for You Discharge Labs No qualifying data available. Discharge Radiology No qualifying data available. Other Therapies No qualifying data available. Post Acute Orders No qualifying data available. Someone Will Contact You Regarding These Home Health Referrals No home referrals have been ordered for you. No one will call you. Allergies NKA Medications Please ask your primary doctor or pharmacist before taking any other medication not listed, including over the counter drugs, herbal medications, vitamins and or supplements as they may interact withyour home medications. What How Much When Why Instructions Last Dose New acetaminophen (Tylenol Extra Strength 500 mg oraltablet) 1 tab(s) by mouth Every 4 hours Duration: 14 Days [facility]: [facility] New acetaminophen-oxyCODONE (Percocet 5 mg-325 mg oral tablet) 1 tab(s) by mouth Every 4 hours as needed for for pain Postoperative pain Duration: 7 Days not to exceed 4000 mg acetaminophen per day Pickup at [facility] Changed ibuprofen (ibuprofen 800 mg oral tablet) 1 tab(s) by mouth Every 8 hours Duration: 14 Days Pickup at [facility] Unchanged NIFEdipine (Procardia XL 60 mg oral tablet, extended release) 1 tab(s) by mouth Once a day Pharmacy Information [facility] [address]: [address] [place], [place] [phone] Please take this list to your next doctor s visit. Bring all medications you take, including over the counter medications, herbals and other supplements with you to your doctor s visit. Patients and families are reminded to discard old lists and to update any records with all medication providers or retail pharmacies. Education Materials What to Do After Your Gynecology Surgery This sheet will give you general information on what to do when you are home after surgery. However, you should always follow any specific instructions given to you by your surgeon. Pain Medication Please follow the directions on the label of your medication and use your discharge medication listprovided by the hospital. Do not take this medication on an empty stomach. This may cause a stomachache. Use a stool softener or gentle laxative (milk of magnesia) if needed. Constipation is not uncommon while taking oral pain medication. Use less of any narcotic pain medication as soon as your pain allows. You may take jrva-qid-gixzhoxxjpr medication if you no longer need your prescribed pain medication. Zwqm-obh-sqvujwk pain medications are Tylenol (acetaminophen) or Advil (ibuprofen). Do not take Tylenol if you are still taking [place] or Percocet. They are the same type of medication. Too much acetaminophen can hurt your liver. Activity It is OK to use the stairs, but try to avoid them or take less trips right after surgery. After surgery, you may feel tired. Rest is important for healing. Slowly increase your activity level by walking and doing normal activities as you feel comfortable. Follow surgeon instructions on driving. You may not be able to drive for one to six weeks dependingon what surgery and incisions you have. Do not drive while taking narcotic pain medication. They should be out of your system for 24 hours. Diet Eating smaller meals instead of three large meals is good. This may help with your appetite and nutrition. Good nutrition will help you heal. Follow diet instructions that you were taught after surgery. Infection Prevention Washing your hands is one of the best ways to prevent infection. Always wash your hands before and after touching your incision or dressing. Hands carry germs that can cause infections. Try not to touch your incision. Keep the Incision Clean Wear clean, loose-fitting clothes to prevent clothes from rubbing on the incision. Put clean sheets on your bed when you get home. Do not let other people or animals touch the incision. Showering You may start to shower 24 hours after your surgery. Use a clean washcloth and towel on your incision before you use it on any other area of your body. Adjust the shower spray to gentle and use warm water. Gently wash over your incision using antibacterial soap and water and pat it dry. Do not rub the incision. Do not soak or submerge in the bathtub or hot tub until your surgeon says it is OK. Wound Care When you go home, you may leave your incision(s) open to the air. Your incision(s) may be closed with sutures or rakesh. If incision is closed with sutures under the skin, you do not need to have these removed as they will dissolve on their own. If incision is closed with rakesh, the rakesh will need to be removed. If your incision is horizontal (sideways), they need to be removed within three to seven days. If your incision is vertical (up and down), they need to be removed within 10 14 days. If you have thin white tape strips (Steri-Strips) over your incision, keep them dry. Do not remove them unless they begin curling up at the sides and are almost falling off or have been in place for seven days. If your incision begins coming apart, has drainage (thick, foul smelling, white, yellow, green, pink or red) with redness around the incision and feels warm to touch, call your surgeon. You may have an infection. Vaginal Care You may have drainage after surgery. Normal colors are watery, brown-black discharge. Vaginal spotting and bleeding are normal. However, if you are soaking two pads in one hour, that isnot normal. Call your surgeon. No tampons or douching. NO SEXUAL INTERCOURSE FOR 2 WEEKS. Call Your Doctor If: Your pain is not controlled by pain medication. You have a fever of 100.4 degrees or higher. You have a lot of bleeding from the incision or a lot of vaginal bleeding (more than two pads per hour). You have bad stomach pain or you start throwing up. If you are unable to reach your doctor, go to the hospital. Follow Up If a follow-up appointment has not been made, please call your surgeon s office within a day. Let the office know if you have rakesh and they will schedule them to be removed. Contact your surgeon for any specific problems or questions that you may have. Additional Information VACCINATE! IT SAVES LIVES! Members of the community who have not yet received the COVID-19 vaccine and would like to receive it can visit one of [facility] vaccine clinics. There are many vaccine clinic locations within the [facility]. For locations and available times, please visit [email or web address] It is important to note that some COVID mobile vaccine clinics are held outdoors and may be canceled in rainy or stormy conditions. To learn more about pediatric vaccinations (ages 5-11), we invite you to visit the [facility] webpage. [email or web address] learn more about the COVID-19 vaccine, we invite you to visit the [employer] website for a list of frequently asked questions. [email or web address] [facility] Patient Portal Access Instructions: Stay connected with your healthcare team and access your personal medical information anytime with the [facility] Patient Portal.If you would like a full copy of your medical records, please contact the [facility] Medical Records Department, Tuesday through Tuesday between 8a.m. and 4:30p.m. Please follow the directions below to access the portal: 1.Access the email account you provided upon registration to the hospital.2.Look for an invitation email from [facility].3.Open the email and access the invitation link: Accept Invitation to [facility].Fill in the required arvizu to create your account. Sign into www.[facility] with your username and password that you created in the above steps to stay up to date. You can then view a summary of results, a summary of your visits, and the ability to download your summaries to your computer or send the information securely to a physician. Remember that your healthcare information is confidential, so carefully consider who you will allow to register on the [facility] Patient Portal for access to your information. You can also access the [facility] Patient Portal on the [employer] melissa. Simply click on Health Records under DG[employer] and then click on the [employer] logo. HOW TO SAFELY DISPOSE OF PRESCRIPTION MEDICATIONS Please use one of the following methods to safely dispose of your unused medications. 1.Use a drug disposal kit: the drug disposal pouch allows you to safely discard your old and unuseddrugs. Ask your nurse to give you one when you are discharged.2.Visit a local take-back location: Many local pharmacies and police departments have programs that collect old and unwanted prescriptiondrugs. Call your local pharmacy or go to http://[place]/3I1Kf3h to find one close to you.3.Make use of household items: Use cat litter or old coffee grounds to dispose medications if other options arenot available. Mix your drugs with these household products, seal them in an airtight container andthrow it into the garbage. Call [facility]: [phone] to be sure your drugs can be disposed of in this way. Some medicines may require a different approach.4.Never flush your medications down the toilet. IF YOU HAVE BEEN PRESCRIBED AN OPIOID FOR PAIN If you have been prescribed an opioid (such as hydrocodone, oxycodone or morphine), it is critical to understand the possible side effects and risks of opioid pain medications. Even when taken as directed, opioids can have several side effects including: Tolerance, meaning you might need to take more of a medication for the same pain relief. Nausea, vomiting and/or constipation. Sleepiness, dizziness, dry mouth, confusion, depression or itching. Physical dependence, meaning you have withdrawal symptoms when a medication is stopped, can develop within a few days. KNOW YOUR RESPONSIBILITIES It is important to know exactly how much and how often to take the opioid pain medications you are prescribed. Never take opioids in higher amounts or more often than prescribed. Do not combine opioids with alcohol or other drugs that cause drowsiness, such as benzodiazepines, also known as benzos, including diazepam and alprazolam, muscle relaxants or sleep aids. Never sell or share prescription opioids. This is illegal. Store opioids in a secure place and out of reach of others (including children, family, friends and visitors). The last page of this document has been signed and retained as a CHART COPY. Signatures Patient Education Materials 8- Post Op CUSHION FORMER Surgery (03/2020) (CUSTOM) Medication Leaflets My discharge plan and instructions have been reviewed and explained to me and I,CARLINE BORDENtanmk my current condition and have read and understand these discharge instructions. I have received a written copy of the plan/instructions. If I have questions, I am aware that I should contact my doctor. Patient/Program Services Assistant Signature: Date/Time: Relationship to Patient: Witness Name/Signature: Date/Time: [facility]12-30-2022 Note Date of Service 04/02/22 Chief Complaint undesired fertility History of Present Illness 36 yo here for laparoscopic bilateral salpingectomy for sterilization. No complaints today. She is confident in her decision. CUSHION FORMER history: Menarche: 9 Menses: regular menses Menopause: n/a HRT: n/a Contraception: none Prior contraception: ocps- no issues STDs: denies Sexually active: yes, no issues Hx of abuse: denies Pap: 05/2020- normal per patient, had done in [facility] Hx of abnormal pap: had LEEP in 2007, 3 TSVD since Gardasil: NA Pregnancies: 3 TSVD- htn with all and GDMA2 on insulin in 3rd . largest baby 8#9oz. G4 severe preE at 36 weeks, GDMA2 Hereditary genetic disease carrier testing: Infertility: no Chronic pelvic pain: denies Gynecology past issues or surgeries: LEEP in 2007 Mammogram: NA Hx of breast bx: no Colonoscopy: NA DXA: NA Family CUSHION FORMER history: Breast/colon/ovarian/uterine cancer: MGM w breast cancer- 70s Hereditary cancer carrier testing: Osteoporosis or hip fractures: no Blood clots, bleeding or clotting disorders: no Genetic conditions or defects: no Recurrent losses, stillbirth or infertility: no [1] Review of Systems Constitutional: Negative for fever, negative for chills, Eyes: Negative for vision changes, Cardiovascular: Negative for chest pain, negative for lightheadedness Respiratory: Negative for shortness of breath at rest, negative for shortness of breath with activity, Gastrointestinal: Negative for abdominal pain, negative for nausea, negative for vomiting, negativefor dyschezia, negative for hematochezia Genitourinary: Negative for dysuria,negative for leakage, negative vaginal discharge, negative for vaginal bleeding Neurological: Negative for abnormal or changing headaches, negative for numbness, negative for weakness, negativefor dizziness Physical Exam Vitals and Measurements T: 36.7 C (Temporal Artery) HR: 80(Apical) RR: 12 BP: 123/77 SpO2: 98% HT: 165 cm WT: 117.0 kg Weight Dosing Weight: 117 kg (04/02/22) General: well groomed, well developed female who appears stated age Neuro: alert and oriented CN II-XII grossly intact Psych: pleasant mood, normal affect HEENT: NC/AT EOMI, neck without thyromegaly. no cervical lymphadenopathy CV: S1/S2 No MRCG, RRR Chest: CTABL no WRR Abd: S/NT/ND, BS present, no HSM Extremities: warm dry and intact, no clubbing, cyanosis or edema present. no rashes, varicosities. Lab Results HCG negative Assessment/Plan Admission for sterilization reviewed postop expectations and instructions follow up in 2 weeks for incision check Orders: Lactated Ringers Infusion 1000 mL, Start: 04/02/22 6:00:00 EST, 18 hour(s), Stop date 04/03/22 17:59:00 EST, Rate: 25 mL/hr IV Catheter Insertion/Care NPO Sequential Compression Device Application Sign Consent Sign Consent Problem List/Past Medical History Ongoing Body mass index 30+ - obesity Chronic hypertension Historical AMA (advanced maternal age) multigravida 35+ Gestational diabetes mellitus, class A>2< Procedure/Surgical History Appendectomy: 2019 Umbilical Hernia repair: 2019 Cholecystotomy: 2008 LEEP: 2008 Medications Home Medications (2) Active IBU 600 mg oral tablet 600 mg = 1 tab(s), Oral, q6h Procardia XL 60 mg oral tablet, extended release 60 mg = 1 tab(s), Oral, qDay Allergies NKA Social History Alcohol Use: Current. Frequency: 1-2 times per year., 06/29/2021 Home/Environment Domestic Concerns: None., 04/02/2022 Nutrition/Health Caffeine intake amount: 1 serving daily., 06/29/2021 Substance Abuse Use: Never., 06/29/2021 Tobacco Nicotine Use: Former smoker, quit more than 30 days ago. Stopped at age: 22 Years., 06/29/2021 Family History Breast cancer: Maternal Grandmother (Dx at 70). Diabetes: Mother. HTN - Hypertension: Mother and Father. Immunizations tetanus/diphth/pertuss (Tdap) adult/adol: 0.5 mL (01/07/22) Code Status No qualifying data available. [1] Initial Office Visit Note; DANAY DE LA TORRE MD 02/08/2022 14:53 EST Digitally Signed by DANAY DE LA TORRE MD on 04/02/2022 07:07 AM [facility]12-30-2022 Anesthesiology Consult note Patient: CARLINE BORDEN Age: 36 years Sex: Female : 1985 Associated Diagnoses: None Author: JENNIFER ANTON APRN-PRINCIPAL WEB DEVELOPER Preoperative Information Anesthesia history Patient's history: negative. Family's history: negative. Health Status Allergies: Allergic Reactions (Selected) NKA, Allergies (1) ActiveReaction NKANone Documented Current medications: (Selected) Inpatient Medications Ordered LR 1,000 mL: 25 mL/hr, Intravenous, Stop: 04/02/22 23:59:00 EST Prescriptions Prescribed IBU 600 mg oral tablet: 600 mg, 1 tab(s), Oral, q6h, 40 tab(s), 0 Refill(s) Procardia XL 60 mg oral tablet, extended release: 60 mg, 1 tab(s), Oral, qDay, 90 tab(s), 1 Refill(s), Medications (1) Active Scheduled: (0) Continuous: (1) Lactated Ringers 1,000 mL 1,000 mL, Intravenous, 25 mL/hr PRN: (0) Problem list: Medical Body mass index 30+ - obesity / SNOMED CT 348167536 / Confirmed Chronic hypertension / SNOMED CT 1869410462 / Confirmed, Active Problems (2) Body mass index 30+ - obesity Chronic hypertension Histories Past Medical History: Resolved ([id number]): Onset on 05/21/2021 at 35 years. Resolved on 01/29/2022 at 36 years. Comments: 02/04/2022 EDT 17:54 EDT - LAUREN GUO ([id number]): Onset on 07/11/2019 at 33 years. Resolved on 03/26/2020 at 34 years. ([id number]): Onset on 03/06/2015 at 29 years. Resolved on 12/10/2015 at 30 years. ([id number]): Onset on 12/26/2013 at 28 years. Resolved on 09/18/2014 at 28 years. AMA (advanced maternal age) multigravida 35+ ([id number]): Resolved. Gestational diabetes mellitus, class A>2< ([id number]): Resolved. Family History: Breast cancer Maternal Grandmother: onset at 70 . HTN - Hypertension Father Mother Diabetes Mother Procedure history: Appendectomy ([id number]) in 2019 at 33 Years. Umbilical Hernia repair ([id number]) in 2019 at 33 Years. Comments: 06/29/2021 14:14 EDT - Mary Hawley TEMPERATURE REGULATOR x 2 Cholecystotomy ([id number]) in 2007 at 22 Years. LEEP ([id number]) in 2008 at 22 Years. Social History Social & Psychosocial Habits Alcohol 06/29/2021 Use: Current Frequency: 1-2 times per year Substance Abuse 06/29/2021 Use: Never Tobacco 06/29/2021 Tobacco Use: Former smoker, quit more Stopped at age: 22 Years Home/Environment 04/02/2022 Domestic Concerns None Nutrition/Health 06/29/2021 Caffeine intake amount: 1 serving daily . Physical Examination Vital Signs 04/02/2022 6:07 EST Temperature Temporal Artery 36.7 DegC Apical Heart Rate 80 bpm Respiratory Rate 12 br/min LOW Systolic Blood Pressure Non-Invasive 123 mmHg Diastolic Blood Pressure Non-Invasive 77 mmHg Vital Signs(last 24 hrs) Last Charted Resp Rate L 12br/min (APR 02 06:) TIQ642 mmHg (APR 02 06:07) DBP77 mmHg (APR 02:) Measurements from flowsheet : Measurements 04/02/2022 6:07 EST Height 165 cm Admission Weight 117.0 kg [place] Body Weight 56.91 kg Admission Body Mass Index 42.98 m2 Pain assessment: Pain Assessment 04/02/2022 6:07 EST Primary Pain Intensity 0 Pain Scale Type 0-10 Pain scale . General: Alert and oriented. Airway: Normal temporomandibular joint mobility. Mallampati classification: II (soft palate, fauces, uvula visible). Dentition Evaluation: Chipped teeth. Respiratory: Lungs are clear to auscultation, Respirations are non-labored. Cardiovascular: Normal rate, Regular rhythm. Neurologic: Alert, Oriented. Review / Management Results review: No qualifying data available , Lab results 04/02/2022 6:50 EST SN - Preop - CTm Pt in SDS Room 04/02/2022 5:59 SN - Preop - CTm Pt Ready for OR/Proced 04/02/2022 6:37 04/02/2022 6:27 EST famotidine 20 mg mg Lactated Ringers Injection Begin Bag 1,000 mL mL 04/02/2022 6:14 EST Individuals Taught Patient, Spouse Learning Readiness Willing to learn Barriers to Learning None evident Preferred Written Language Gabonese Preferred Spoken Language Gabonese Pre Procedure/Surgery Education Appropriate expectations 04/02/2022 6:07 EST Height 165 cm Admission Weight 117.0 kg [place] Body Weight 56.91 kg Admission Body Mass Index 42.98 m2 Temperature Temporal Artery 36.7 DegC Apical Heart Rate 80 bpm Respiratory Rate 12 br/min LOW Systolic Blood Pressure Non-Invasive 123 mmHg Diastolic Blood Pressure Non-Invasive 77 mmHg Primary Pain Intensity 0 Pain Scale Type 0-10 Pain scale Heart Sounds ICU S1S2 Heart Rhythm Regular Oxygen Therapy Room air Oxygen Saturation 98 % Abdomen Description Non-distended, Soft Abdomen Palpation Non-Tender, Soft Bowel Sounds All Quadrants Present Urinary Elimination Voiding, no difficulties Skin Temperature Warm Skin Description [place], Normal for ethnicity, Dry Skin Integrity Intact Skin Moisture General Dry IV Present Present Hand Right 04/02/2022 20 gauge Peripheral IV Activity: Insert new site Peripheral IV Site Condition: No complications Peripheral IV Number of Attempts: 1 Neurological Symptoms Patient denies Extremity Movement Equal Characteristics of Speech Clear Level of Consciousness Alert Strength All Extremities Strong Sensation All Extremities Intact Affect/Behavior Appropriate Orientation Oriented x 4 Allergies Yes Workers' Compensation Claims Supervisor On Yes Consent Form Signed Yes Patient Dressed In Hospital gown CHG Preoperative Wash/Wipe Night before procedure, Day of procedure History & Physical Update On Chart Yes History & Physical On Chart Yes Obstructive Sleep Apnea Assess Completed Yes Orientation Assessment Oriented x 4 Belongings At Bedside Glasses, Pants, Shirt, Shoes, Undergarments Activity Status ADL Ambulating in oquendo, Ambulating in room, Awake Assistive Device None SCD On/Re-applied bilateral knee high NPO Status Maintained Standard Safety ID band on, Call device within reach, Bed in low position, Wheels locked, Visitor at bedside, Safety level maintained Patient ID Band on and Verified Yes Implants Verified Yes Pacemaker/AICD Verified Yes Blood Consent Signed Yes Last Fluid Intake 04/01/2022 23:00 Last Food Intake 04/01/2022 23:00 Last Void 04/02/2022 6:14 04/02/2022 6:06 EST Test Urine Negative test (u) int test (u) int QC PRGUN Negative QC PRGUP Positive 04/02/2022 6:04 EST Infectious Disease Symptoms Patient states no symptoms Admission Note-Nursing Same Day Patient History (Modified) . Assessment and Plan [place] Society of Anesthesiologists (ASA) physical status classification: Class III. Anesthetic Preoperative Plan Anesthetic technique: General. Maintenance airway: Oral endotracheal tube. Postoperative pain management: Per surgeon. Risks discussed: nausea, vomiting, sore throat, dental injury, hypotension, allergic reaction, serious complications. Informed consent: signed by patient. Digitally Signed by JENNIFER ANTON on 04/02/2022 07:02 AM [facility]11-07-2022 Evaluation + Plan note Future Appointments Future Scheduled Tests Laboratory* Glucose 2 Hour Post Prandial 02/08/22 * Lipid Profile 03/15/22 [facility] 11-01-2022 Maternal and medicine Progress note Patient seen and discussed with Dr Guo, the resident. Her exam was reviewed and confirmed. The patient has no complaints. She feels well. Lochia appropriate. Hemoglobin today 9.8 creatinine 0.6 and AST and ALT were normal. The patient's blood glucoses were normal post delivery. Blood pressure has been adequately controlled on nifedipine XL 30 mg every 12 hours. Discharge instructions were reviewed with the patient. She was instructed to call her OB group ([facility]) to follow-up with them for blood pressure check on 02/05/2022. We discussed the need for 2-hour 75 g glucose tolerance test at about the time of the 6-week checkup. We discussed that the patient is at increased risk of continued hypertension and later cardiovascular disease based on her history of preeclampsia. Floor time at least 35 minutes. Digitally Signed by ISMAEL ROSARIO MD on 02/02/2022 03:39 PM [id number] Maternal and medicine Progress note Patient seen and discussed with Dr Guo, the resident. Her exam was reviewed and confirmed. The patient has no complaints. She feels well. Lochia appropriate. Hemoglobin today 9.8 creatinine 0.6 and AST and ALT were normal. The patient's blood glucoses were normal post delivery. Blood pressure has been adequately controlled on nifedipine XL 30 mg every 12 hours. Discharge instructions were reviewed with the patient. She was instructed to call her OB group ([facility]) to follow-up with them for blood pressure check on 02/05/2022. We discussed the need for 2-hour 75 g glucose tolerance test at about the time of the 6-week checkup. We discussed that the patient is at increased risk of continued hypertension and later cardiovascular disease based on her history of preeclampsia. Floor time at least 35 minutes. Digitally Signed by ISMAEL ROSARIO MD on 02/02/2022 03:39 PM [id number] Discharge instructions Patient Education 02/02/2022 12:51:19 Hypertension Hypertension hypertension is high blood pressure that remains higher than normal after childbirth. You may not realize that you have hypertension if your blood pressure is not being checked regularly. In most cases, hypertension will go away on its own, usually within a week of delivery. However, for some women, medical treatment is required to prevent serious complications, such as seizures or stroke. What are the causes? This condition may be caused by one or more of the following: Hypertension that existed before (chronic hypertension). Hypertension that comes on as a result of (gestational hypertension). Hypertensive disorders during (preeclampsia) or seizures in women who have high blood pressure during (eclampsia). A condition in which the liver, platelets, and red blood cells are damaged during (HELLP syndrome). A condition in which the thyroid produces too much hormones (hyperthyroidism). Other rare problems of the nerves (neurological disorders) or blood disorders. In some cases, the cause may not be known. What increases the risk? The following factors may make you more likely to develop this condition: Chronic hypertension. In some cases, this may not have been diagnosed before . Obesity. Type 2 diabetes. Kidney disease. History of preeclampsia or eclampsia. Other medical conditions that change the level of hormones in the body (hormonal imbalance). What are the signs or symptoms? As with all types of hypertension, hypertension may not have any symptoms. Depending on how high your blood pressure is, you may experience: Headaches. These may be mild, moderate, or severe. They may also be steady, constant, or sudden in onset (thunderclap headache). Changes in your ability to see (visual changes). Dizziness. Shortness of breath. Swelling of your hands, feet, lower legs, or face. In some cases, you may have swelling in more than one of these locations. Heart palpitations or a racing heartbeat. Difficulty breathing while lying down. Decrease in the amount of urine that you pass. Other rare signs and symptoms may include: Sweating more than usual. This lasts longer than a few days after delivery. Chest pain. Sudden dizziness when you get up from sitting or lying down. Seizures. Nausea or vomiting. Abdominal pain. How is this diagnosed? This condition may be diagnosed based on the results of a physical exam, blood pressure measurements, and blood and urine tests. You may also have other tests, such as a CT scan or an MRI, to check for other problems of hypertension. How is this treated? If blood pressure is high enough to require treatment, your options may include: Medicines to reduce blood pressure (antihypertensives). Tell your health care provider if you are or if you plan to breastfeed. There are many antihypertensive medicines that are safe to take while . Stopping medicines that may be causing hypertension. Treating medical conditions that are causing hypertension. Treating the complications of hypertension, such as seizures, stroke, or kidney problems. Your health care provider will also continue to monitor your blood pressure closely until it is within a safe range for you. Follow these instructions at home: Take ecvq-mof-lpzlcty and prescription medicines only as told by your health care provider. Return to your normal activities as told by your health care provider. Ask your health care provider what activities are safe for you. Do not use any products that contain nicotine or tobacco, such as cigarettes and e-cigarettes. If you need help quitting, ask your health care provider. Keep all follow-up visits as told by your health care provider. This is important. Contact a health care provider if: Your symptoms get worse. You have new symptoms, such as: ?A headache that does not get better. ?Dizziness. ?Visual changes. Get help right away if: You suddenly develop swelling in your hands, ankles, or face. You have sudden, rapid weight gain. You develop difficulty breathing, chest pain, racing heartbeat, or heart palpitations. You develop severe pain in your abdomen. You have any symptoms of a stroke. BE FAST is an easy way to remember the main warning signs of astroke: ?B - Balance. Signs are dizziness, sudden trouble walking, or loss of balance. ?E - Eyes. Signs are trouble seeing or a sudden change in vision. ?F - Face. Signs are sudden weakness or numbness of the face, or the face or eyelid drooping on oneside. ?A - Arms. Signs are weakness or numbness in an arm. This happens suddenly and usually on one side of the body. ?S - Speech. Signs are sudden trouble speaking, slurred speech, or trouble understanding what people say. ?T - Time. Time to call emergency services. Write down what time symptoms started. You have other signs of a stroke, such as: ?A sudden, severe headache with no known cause. ?Nausea or vomiting. ?Seizure. These symptoms may represent a serious problem that is an emergency. Do not wait to see if the symptoms will go away. Get medical help right away. Call your local emergency services (911 in the [place] Do not drive yourself to the hospital. Summary hypertension is high blood pressure that remains higher than normal after childbirth. In most cases, hypertension will go away on its own, usually within a week of delivery. For some women, medical treatment is required to prevent serious complications, such as seizures orstroke. This information is not intended to replace advice given to you by your health care provider. Make sure you discuss any questions you have with your health care provider. Document Released: 11/22/2014 Document Revised: 04/27/2019 Document Reviewed: 01/09/2018 [employer] Resume Patient Education 2020 [employer]. 02/02/2022 12:51:18 Hemorrhage Hemorrhage hemorrhage is excessive blood loss after childbirth. Vaginal bleeding after delivery is normal and should be expected. Bleeding (lochia) will occur for several days after childbirth. This can be expected with normal vaginal deliveries and deliveries. However, hemorrhage is a potentially serious condition. What are the causes? This condition is caused by: A loss of muscle tone in the uterus after childbirth. This can be caused by: ?An abnormal placenta. ?Infection. ?Bladder swelling (distension). Failure to deliver all of the placenta or the retention of clots. Wounds in the canal caused by delivery of the fetus. Infection of the uterus. Infection of tissue around the fetus. A tear in the uterus. Tearing of the vagina or cervix during delivery. A maternal bleeding disorder that prevents blood from clotting (rare). What increases the risk? This condition is likely to develop in people who: Have a history of hemorrhage. Had a delivery that lasted longer than usual. Have an excess of amniotic fluid in the amniotic sac (polyhydramnios), leading the uterus to stretch too much. Have delivered quintuplets or more babies. Had high blood pressure, seizures, or coma during . Had a condition called preeclampsia or eclampsia during . Had problems with the placenta. Had complications during labor or delivery. Are obese. Are 40 years old or older. Are or . What are the signs or symptoms? Symptoms of this condition include: Passing large clots or pieces of tissue. These may be small pieces of placenta left after delivery. Soaking more than one sanitary pad per hour for several hours. Heavy, bright-red bleeding that occurs 4 days or more after delivery. Discharge that has a bad smell. An unexplained fever. Nausea or vomiting. Pain or swelling near the vagina or perineum. A drop in blood pressure. Lightheadedness or fainting. Shortness of breath. A fast heart rate that happens with very little activity. Signs of shock, such as: ?Blurry vision. ?Chills. ?Dizziness. ?Weakness. How is this diagnosed? This condition may be diagnosed based on: Your symptoms. A physical exam of your perineum, vagina, cervix, and uterus. Tests, including: ?Blood pressure and pulse measurements. ?Blood tests. ?Blood clotting tests. ?Ultrasonography. How is this treated? Treatment for this condition depends on the severity of your symptoms. It may include: Uterine massage. Medicines to help the uterus contract. Blood transfusions. Fluids given through the vein. A medical procedure to compress arteries supplying the uterus. Sometimes bleeding occurs if portions of the placenta are left behind in the uterus after delivery.If this happens, a curettage or scraping of the inside of the uterus must be done (rare). This usually stops the bleeding. If curettage does not stop the bleeding, surgery may be done to remove the uterus (hysterectomy), but this rarely occurs. If bleeding is due to clotting or bleeding problems that are not related to the , other treatments may be needed. Follow these instructions at home: Limit your activity as directed by your health care provider. Your health care provider may order bed rest (getting up to go to the bathroom only) or may allow you to continue light activity. Keep track of the number of pads you use each day and how soaked (saturated) they are. Write down this information. Do not use tampons. Do not douche or have sexual intercourse until your health care provider approves. Drink enough fluids to keep your urine clear or pale yellow. Get enough rest. Eat foods that are rich in iron, such as spinach, red meat, and legumes. Take any kuks-zrp-eziofwx and prescription medicines only as told by your health care provider. Keep all follow-up visits as told by your health care provider. This is important. Get help right away if: You experience severe cramps in your stomach, back, or abdomen. You have a fever. You pass large clots or tissue. Save any tissue for your health care provider to look at. Your bleeding increases. You have heavy bleeding that soaks one pad per hour for 2 hours in a row. You faint or become dizzy, weak, or lightheaded. Your sanitary pad count per hour is increasing. You are urinating less than usual or not at all. You have shortness of breath. Your heart rate is faster than usual. You have sudden chest pain. This information is not intended to replace advice given to you by your health care provider. Make sure you discuss any questions you have with your health care provider. Document Released: 06/10/2004 Document Revised: 03/03/2018 Document Reviewed: 10/22/2016 [employer] Patient Education 2020 [employer]. 02/02/2022 12:51:15 7- Home Care Instructions After Delivery 05/2019 (CUSTOM) Home Care Instructions After Delivery After discharge you may discover that you still have questions about body changes, activity, and care during the next few weeks. The following information should be helpful in answering many of your questions. ACTIVITY Resume your daily activities at home gradually. Allow time for rest periods during the day Avoid heavy lifting (more than 10 pounds/4.5 kilograms) and strenuous work or sports. If you had a , you should refrain from vacuuming, stair-climbing, and driving a car for 2 to 3 weeks. VAGINAL FLOW & RETURN OF MENSES Vaginal flow may continue for 4 to 6 weeks after delivery. Usually the amount decreases and the color of blood gets quantitative analyst developer. Bright red and increased flow may reoccur if you have been too active. Lie down, rest, and call your caregiver if you are soaking more than 1 pad an hour or passing largeclots. Menstrual period will usually return 6 to 8 weeks after delivery. PERINEAL CARE Use the shantel-bottle and change sanitary pads each time you go to the bathroom. Use towelettes in place of toilet paper until stitches are healed. Continue to use tucks and/or spray dermoplast. Lidocaine cream for episiotomy pain with your care givers approval. Do not use tampons or douches until vaginal bleeding has stopped (about 4 weeks). No Sexual intercourse until seen by physician. INCISION (CUT BY THE SURGEON) CARE Following , shower as desired but try to keep your incision dry. A small amount of clear or pink drainage is normal. The incision site will be tender for several weeks. Take prescription or tudn-pbc-ynjtmvl medications for pain with your care givers approval. Contact your caregiver if the drainage increases, becomes foul smelling, the incision reddens, or you develop a fever. BOWELS/HEMORRHOIDS Try to avoid constipation by increasing the fluids and fiber in your diet. Drink at least 6 to 8 glasses of non-caffeinated fluids per day. Include whole grains, raw fruits and vegetables in your diet. Avoid straining when trying to pass a stool. Ebcc-ies-iedajva medications, stool softeners, can be used. Check with your caregiver. NUTRITION Eat a well-balanced diet that includes the basic food groups. Do not try to lose weight quickly by drastically cutting back on calories. EXERCISES Kegel exercises Start this exercise right after delivery. You can do it while standing, sitting, or lying down. Tighten your stomach muscles and the muscles surrounding your canal. Hold for a few seconds and then relax. Do Kegel exercises when you take a sitz bath. Repeat often during the day. Choose specialtimes during the day when you will remember to do this (for example, when using the bathroom, turning the water faucet on, etc.). Repeat 5 times each time. Make Kegel exercises a part of your daily routine to maintain the tone of muscles that support your vagina, bladder, and bowels. SELF BREAST EXAMINATION A self breast exam needs to be an important part of every woman's self-care. Do your self breast exam once a month, 5 to 7 days after your period begins, unless you are . Do self breast exams at the same time of the month each month, on a day of your choice. Any lump, bump or discharge should be reported to your caregiver. SEEK MEDICAL CARE IMMEDIATELY IF YOU NOTICE: Sanitary pad soaked with blood in 1 hour or less. Severe lower abdominal pain or cramping. Foul-smelling discharge from vagina. Increased rather than decreased pain around stitches and/or swelling, redness or hardness in area. Pain and/or redness in calf of the leg. Nausea with vomiting for 12 hours. Sudden, severe chest pain. Shortness of breath. Painful urination. Severe headache. Area of the breast is red and sore and you have a fever. (You may feel like you have flu symptoms.) Follow Up Care 01/28/2022 21:52:33 With:DOC RITCHIE MD Address: [address] [place] [address] [place] [address] [phone] When:Within 3 Day(s) Comments:Follow up in 3 days with OBGYN for blood pressure check. [facility] 11-01-2022 Note Discharge Instructions Thank you for allowing [facility] to assist you with your healthcare needs. The following is importantdischarge information regarding your hospital visit. Your Care Team HAMLET QUIROS MD What to do next Scheduled Follow-Up Appointments Tuesday 10:30 AM EST Where: [facility] Tuesday 8:30 AM EST Where: [facility] Follow Up Appointments Follow Up with CHAU QUESADA, DOC Recio When In 3 days Why: Follow up in 3 days with OBGYN for blood pressure check. Where: [address] [facility] [address] [facility] [place] [address]- [phone] Someone Will Contact You Regarding These Home Health Referrals No home referrals have been ordered for you. No one will call you. The Following Activity and Diet Have Been Ordered for You Discharge Activity - Ordered -- Sexual [place] Restricted, No intercourse x6wks, nothing in vagina (tampons, douching) x6wks, no driving while on narcotics, no vigorous activity x4wks, no tub bathing [id number], 02/02/22 12:50:00 EDT Discharge Diet - Ordered -- No changes were made to your diet during your hospital stay. Please resume your pre hospitalization diet on discharge., 02/02/22 12:50:00 EDT The Following Equipment Has Been Ordered for You No qualifying data available. The Following Treatments Have Been Arranged for You Discharge Labs No qualifying data available. Discharge Radiology No qualifying data available. Other Therapies No qualifying data available. Allergies NKA Medications Please ask your primary doctor or pharmacist before taking any other medication not listed, including over the counter drugs, herbal medications, vitamins and or supplements as they may interact withyour home medications. What How Much When Instructions Last Dose New ferrous sulfate (IRON (ferrous sulfate 325 mg) 65 mg oral tablet) 1 tab(s) by mouth Once a day Pickup at [facility] New ibuprofen (IBU 600 mg oral tablet) 1 tab(s) by mouth Every 6 hours Pickup at [facility] New NIFEdipine (Procardia XL 30 mg oral tablet, extended release) 1 tab(s) by mouth Two (2) times a day Refills: 3 Pickup at [facility] New senna (senna (sennosides) 8.6 mg oral tablet) 1 tab(s) by mouth Daily at bedtime as needed for for constipation Pickup at [facility] Unchanged multivitamin, ( Multivitamins) 1 tab(s) by mouth Once a day Unchanged ondansetron (ondansetron 4 mg oral tablet) 1 tab(s) by mouth Every 8 hours as needed for Nausea/Vomiting Pharmacy Information [facility]: [address] [place], [place] [phone] What How Much When Why Comments Stop Taking aspirin (aspirin 81 mg oral delayed release tablet) 1 tab(s) by mouth Every day Duration: 9 month(s) Stop Taking DME (Blood Glucose Test Strips) See instructions AMA (advanced maternal age) multigravida 35+ Check 4x/ Day, 120 strips for a One Touch Ultra 2 Stop Taking glyBURIDE (glyBURIDE 5 mg oral tablet) 1 tab(s) by mouth Twice daily with meals Duration: 30 Days Please take this list to your next doctor s visit. Bring all medications you take, including over the counter medications, herbals and other supplements with you to your doctor s visit. Patients and families are reminded to discard old lists and to update any records with all medication providers or retail pharmacies. Education Materials Hypertension hypertension is high blood pressure that remains higher than normal after childbirth. You may not realize that you have hypertension if your blood pressure is not being checked regularly. In most cases, hypertension will go away on its own, usually within a week of delivery. However, for some women, medical treatment is required to prevent serious complications, such as seizures or stroke. What are the causes? This condition may be caused by one or more of the following: Hypertension that existed before (chronic hypertension). Hypertension that comes on as a result of (gestational hypertension). Hypertensive disorders during (preeclampsia) or seizures in women who have high blood pressure during (eclampsia). A condition in which the liver, platelets, and red blood cells are damaged during (HELLP syndrome). A condition in which the thyroid produces too much hormones (hyperthyroidism). Other rare problems of the nerves (neurological disorders) or blood disorders. In some cases, the cause may not be known. What increases the risk? The following factors may make you more likely to develop this condition: Chronic hypertension. In some cases, this may not have been diagnosed before . Obesity. Type 2 diabetes. Kidney disease. History of preeclampsia or eclampsia. Other medical conditions that change the level of hormones in the body (hormonal imbalance). What are the signs or symptoms? As with all types of hypertension, hypertension may not have any symptoms. Depending on how high your blood pressure is, you may experience: Headaches. These may be mild, moderate, or severe. They may also be steady, constant, or sudden in onset (thunderclap headache). Changes in your ability to see (visual changes). Dizziness. Shortness of breath. Swelling of your hands, feet, lower legs, or face. In some cases, you may have swelling in more than one of these locations. Heart palpitations or a racing heartbeat. Difficulty breathing while lying down. Decrease in the amount of urine that you pass. Other rare signs and symptoms may include: Sweating more than usual. This lasts longer than a few days after delivery. Chest pain. Sudden dizziness when you get up from sitting or lying down. Seizures. Nausea or vomiting. Abdominal pain. How is this diagnosed? This condition may be diagnosed based on the results of a physical exam, blood pressure measurements, and blood and urine tests. You may also have other tests, such as a CT scan or an MRI, to check for other problems of hypertension. How is this treated? If blood pressure is high enough to require treatment, your options may include: Medicines to reduce blood pressure (antihypertensives). Tell your health care provider if you are or if you plan to breastfeed. There are many antihypertensive medicines that are safe to take while . Stopping medicines that may be causing hypertension. Treating medical conditions that are causing hypertension. Treating the complications of hypertension, such as seizures, stroke, or kidney problems. Your health care provider will also continue to monitor your blood pressure closely until it is within a safe range for you. Follow these instructions at home: Take xuyt-dxe-jhuhbxw and prescription medicines only as told by your health care provider. Return to your normal activities as told by your health care provider. Ask your health care provider what activities are safe for you. Do not use any products that contain nicotine or tobacco, such as cigarettes and e-cigarettes. If you need help quitting, ask your health care provider. Keep all follow-up visits as told by your health care provider. This is important. Contact a health care provider if: Your symptoms get worse. You have new symptoms, such as: ? A headache that does not get better. ? Dizziness. ? Visual changes. Get help right away if: You suddenly develop swelling in your hands, ankles, or face. You have sudden, rapid weight gain. You develop difficulty breathing, chest pain, racing heartbeat, or heart palpitations. You develop severe pain in your abdomen. You have any symptoms of a stroke. BE FAST is an easy way to remember the main warning signs of astroke: ? B - Balance. Signs are dizziness, sudden trouble walking, or loss of balance. ? E - Eyes. Signs are trouble seeing or a sudden change in vision. ? F - Face. Signs are sudden weakness or numbness of the face, or the face or eyelid drooping on one side. ? A - Arms. Signs are weakness or numbness in an arm. This happens suddenly and usually on one side of the body. ? S - Speech. Signs are sudden trouble speaking, slurred speech, or trouble understanding what peoplesay. ? T - Time. Time to call emergency services. Write down what time symptoms started. You have other signs of a stroke, such as: ? A sudden, severe headache with no known cause. ? Nausea or vomiting. ? Seizure. These symptoms may represent a serious problem that is an emergency. Do not wait to see if the symptoms will go away. Get medical help right away. Call your local emergency services (911 in the [place] Do not drive yourself to the hospital. Summary hypertension is high blood pressure that remains higher than normal after childbirth. In most cases, hypertension will go away on its own, usually within a week of delivery. For some women, medical treatment is required to prevent serious complications, such as seizures orstroke. This information is not intended to replace advice given to you by your health care provider. Make sure you discuss any questions you have with your health care provider. Document Released: 11/22/2014 Document Revised: 04/27/2019 Document Reviewed: 01/09/2018 [employer] Patient Education 2020 [employer] Hemorrhage hemorrhage is excessive blood loss after childbirth. Vaginal bleeding after delivery is normal and should be expected. Bleeding (lochia) will occur for several days after childbirth. This can be expected with normal vaginal deliveries and deliveries. However, hemorrhage is a potentially serious condition. What are the causes? This condition is caused by: A loss of muscle tone in the uterus after childbirth. This can be caused by: ? An abnormal placenta. ? Infection. ? Bladder swelling (distension). Failure to deliver all of the placenta or the retention of clots. Wounds in the canal caused by delivery of the fetus. Infection of the uterus. Infection of tissue around the fetus. A tear in the uterus. Tearing of the vagina or cervix during delivery. A maternal bleeding disorder that prevents blood from clotting (rare). What increases the risk? This condition is likely to develop in people who: Have a history of hemorrhage. Had a delivery that lasted longer than usual. Have an excess of amniotic fluid in the amniotic sac (polyhydramnios), leading the uterus to stretch too much. Have delivered quintuplets or more babies. Had high blood pressure, seizures, or coma during . Had a condition called preeclampsia or eclampsia during . Had problems with the placenta. Had complications during labor or delivery. Are obese. Are 40 years old or older. Are or . What are the signs or symptoms? Symptoms of this condition include: Passing large clots or pieces of tissue. These may be small pieces of placenta left after delivery. Soaking more than one sanitary pad per hour for several hours. Heavy, bright-red bleeding that occurs 4 days or more after delivery. Discharge that has a bad smell. An unexplained fever. Nausea or vomiting. Pain or swelling near the vagina or perineum. A drop in blood pressure. Lightheadedness or fainting. Shortness of breath. A fast heart rate that happens with very little activity. Signs of shock, such as: ? Blurry vision. ? Chills. ? Dizziness. ? Weakness. How is this diagnosed? This condition may be diagnosed based on: Your symptoms. A physical exam of your perineum, vagina, cervix, and uterus. Tests, including: ? Blood pressure and pulse measurements. ? Blood tests. ? Blood clotting tests. ? Ultrasonography. How is this treated? Treatment for this condition depends on the severity of your symptoms. It may include: Uterine massage. Medicines to help the uterus contract. Blood transfusions. Fluids given through the vein. A medical procedure to compress arteries supplying the uterus. Sometimes bleeding occurs if portions of the placenta are left behind in the uterus after delivery.If this happens, a curettage or scraping of the inside of the uterus must be done (rare). This usually stops the bleeding. If curettage does not stop the bleeding, surgery may be done to remove the uterus (hysterectomy), but this rarely occurs. If bleeding is due to clotting or bleeding problems that are not related to the , other treatments may be needed. Follow these instructions at home: Limit your activity as directed by your health care provider. Your health care provider may order bed rest (getting up to go to the bathroom only) or may allow you to continue light activity. Keep track of the number of pads you use each day and how soaked (saturated) they are. Write down this information. Do not use tampons. Do not douche or have sexual intercourse until your health care provider approves. Drink enough fluids to keep your urine clear or pale yellow. Get enough rest. Eat foods that are rich in iron, such as spinach, red meat, and legumes. Take any negs-vnr-eohasly and prescription medicines only as told by your health care provider. Keep all follow-up visits as told by your health care provider. This is important. Get help right away if: You experience severe cramps in your stomach, back, or abdomen. You have a fever. You pass large clots or tissue. Save any tissue for your health care provider to look at. Your bleeding increases. You have heavy bleeding that soaks one pad per hour for 2 hours in a row. You faint or become dizzy, weak, or lightheaded. Your sanitary pad count per hour is increasing. You are urinating less than usual or not at all. You have shortness of breath. Your heart rate is faster than usual. You have sudden chest pain. This information is not intended to replace advice given to you by your health care provider. Make sure you discuss any questions you have with your health care provider. Document Released: 06/10/2004 Document Revised: 03/03/2018 Document Reviewed: 10/22/2016 [employer] Patient Education 2020 [employer] Home Care Instructions After Delivery After discharge you may discover that you still have questions about body changes, activity, and care during the next few weeks. The following information should be helpful in answering many of your questions. ACTIVITY Resume your daily activities at home gradually. Allow time for rest periods during the day Avoid heavy lifting (more than 10 pounds/4.5 kilograms) and strenuous work or sports. If you had a , you should refrain from vacuuming, stair-climbing, and driving a car for 2 to 3 weeks. VAGINAL FLOW & RETURN OF MENSES Vaginal flow may continue for 4 to 6 weeks after delivery. Usually the amount decreases and the color of blood gets quantitative analyst developer. Bright red and increased flow may reoccur if you have been too active. Lie down, rest, and call your caregiver if you are soaking more than 1 pad an hour or passing largeclots. Menstrual period will usually return 6 to 8 weeks after delivery. PERINEAL CARE Use the shantel-bottle and change sanitary pads each time you go to the bathroom. Use towelettes in place of toilet paper until stitches are healed. Continue to use tucks and/or spray dermoplast. Lidocaine cream for episiotomy pain with your care givers approval. Do not use tampons or douches until vaginal bleeding has stopped (about 4 weeks). No Sexual intercourse until seen by physician. INCISION (CUT BY THE SURGEON) CARE Following , shower as desired but try to keep your incision dry. A small amount of clear or pink drainage is normal. The incision site will be tender for several weeks. Take prescription or pvzl-oum-bewfkgy medications for pain with your care givers approval. Contact your caregiver if the drainage increases, becomes foul smelling, the incision reddens, or you develop a fever. BOWELS/HEMORRHOIDS Try to avoid constipation by increasing the fluids and fiber in your diet. Drink at least 6 to 8 glasses of non-caffeinated fluids per day. Include whole grains, raw fruits and vegetables in your diet. Avoid straining when trying to pass a stool. Lusn-mzi-ypwsuwt medications, stool softeners, can be used. Check with your caregiver. NUTRITION Eat a well-balanced diet that includes the basic food groups. Do not try to lose weight quickly by drastically cutting back on calories. EXERCISES Kegel exercises Start this exercise right after delivery. You can do it while standing, sitting, or lying down. Tighten your stomach muscles and the muscles surrounding your canal. Hold for a few seconds and then relax. Do Kegel exercises when you take a sitz bath. Repeat often during the day. Choose specialtimes during the day when you will remember to do this (for example, when using the bathroom, turning the water faucet on, etc.). Repeat 5 times each time. Make Kegel exercises a part of your daily routine to maintain the tone of muscles that support your vagina, bladder, and bowels. SELF BREAST EXAMINATION A self breast exam needs to be an important part of every woman's self-care. Do your self breast exam once a month, 5 to 7 days after your period begins, unless you are . Do self breast exams at the same time of the month each month, on a day of your choice. Any lump, bump or discharge should be reported to your caregiver. SEEK MEDICAL CARE IMMEDIATELY IF YOU NOTICE: Sanitary pad soaked with blood in 1 hour or less. Severe lower abdominal pain or cramping. Foul-smelling discharge from vagina. Increased rather than decreased pain around stitches and/or swelling, redness or hardness in area. Pain and/or redness in calf of the leg. Nausea with vomiting for 12 hours. Sudden, severe chest pain. Shortness of breath. Painful urination. Severe headache. Area of the breast is red and sore and you have a fever. (You may feel like you have flu symptoms.) Additional Information VACCINATE! IT SAVES LIVES! Members of the community who have not yet received the COVID-19 vaccine and would like to receive it can visit one of [facility] vaccine clinics. There are many vaccine clinic locations within the [facility]. For locations and available times, please visit [email or web address]. It is important to note that some COVID mobile vaccine clinics are held outdoors and may be canceled in rainy orstormy conditions. To learn more about pediatric vaccinations (ages 5-11), we invite you to visit the [facility] webpage. [email or web address] learn more about the COVID-19 vaccine, we invite you to visit the [facility] website for a list of frequently asked questions. [email or web address] [facility] Patient Portal Access Instructions: Stay connected with your healthcare team and access your personal medical information anytime with the [facility] Patient [facility].If you would like a full copy of your medical records, please contact the [facility] Medical Records Department, Tuesday through Tuesday between 8a.m. and 4:30p.m. Please follow the directions below to access the portal: 1.Access the email account you provided upon registration to the [facility].2.Look for an invitation email from [facility].3.Open the email and access the invitation link: Accept Invitation to [facility]4.Fill in the required arvizu to create your account. Sign into [email or web address] with your username and password that you created in the above steps to stay up to date. You can then view a summary of results, a summary of your visits, and the ability to download your summaries to your computer or send the information securely to a physician. Remember that your healthcare information is confidential, so carefully consider who you will allow to register on the [facility] Patient Portal for access to your information. You can also access the [facility] [employer] Patient Portal on the [employer] melissa. Simply click on Health Records under [employer] and then click on the [facility] logo. HOW TO SAFELY DISPOSE OF PRESCRIPTION MEDICATIONS Please use one of the following methods to safely dispose of your unused medications. 1.Use a drug disposal kit: the drug disposal pouch allows you to safely discard your old and unuseddrugs. Ask your nurse to give you one when you are discharged.2.Visit a local take-back location: Many local pharmacies and police departments have programs that collect old and unwanted prescriptiondrugs. Call your local pharmacy or go to http://bit.ly/2V3Js2q to find one close to you.3.Make use of household items: Use cat litter or old coffee grounds to dispose medications if other options arenot available. Mix your drugs with these household products, seal them in an airtight container andthrow it into the garbage. Call [facility]: [phone] to be sure your drugs can be disposed of in this way. Some medicines may require a different approach.4.Never flush your medications down the toilet. IF YOU HAVE BEEN PRESCRIBED AN OPIOID FOR PAIN If you have been prescribed an opioid (such as hydrocodone, oxycodone or morphine), it is critical to understand the possible side effects and risks of opioid pain medications. Even when taken as directed, opioids can have several side effects including: Tolerance, meaning you might need to take more of a medication for the same pain relief. Nausea, vomiting and/or constipation. Sleepiness, dizziness, dry mouth, confusion, depression or itching. Physical dependence, meaning you have withdrawal symptoms when a medication is stopped, can develop within a few days. KNOW YOUR RESPONSIBILITIES It is important to know exactly how much and how often to take the opioid pain medications you are prescribed. Never take opioids in higher amounts or more often than prescribed. Do not combine opioids with alcohol or other drugs that cause drowsiness, such as benzodiazepines, also known as benzos,including diazepam and alprazolam, muscle relaxants or sleep aids. Never sell or share prescriptionopioids. This is illegal. Store opioids in a secure place and out of reach of others (including children, family, friends and visitors). The last page of this document has been signed and retained as a CHART COPY Signatures Patient Education Materials Hypertension Hemorrhage 7- Home Care Instructions After Delivery 05/2019 (CUSTOM) Medication Leaflets My discharge plan and instructions have been reviewed and explained to me and I,CARLINE BORDENtand my current condition and have read and understand these discharge instructions. I have received a written copy of the plan/instructions. If I have questions, I am aware that I should contact my doctor. Patient/Program Services Assistant Signature: Date/Time: Relationship to Patient: Witness Name/Signature: Date/Time: [id number] Maternal and medicine Progress note MATERNAL MEDICINE REVIEW Consult Referral from: Maternal- transport from Dr. Quiros in [place] on January 28, 2022. She was admitted on January 28, 2022. She is 36 years of age 4 para 3 with 3 prior vaginal deliveries who was referred at 36 weeks and 0 days with severe range blood pressures and received magnesium sulfate and acute blood pressure management prior to transfer to us. Additionally she is GDMA2. She has been on glyburide. She is got class III obesity. In regard to AMA her NIPT was normal. transport. Labor was induced and she has successful vaginal delivery Vitals Signs(Last 24 hrs)__Last Charted Minimum Maximum Temp36.5(FEB 01 07:40)36.5(FEB 01 07:40)37.1(FEB 01:) Heart Rate86(FEB 01 11:06)78(FEB 01 07:40)86(FEB 01 11:06) Resp Rate18(FEB 01 07:40)16(FEB 01 00:31)18(FEB 01 07:40) SBPH 153(FEB 01 12:55)128(FEB 01 00:31)H 158(FEB 01 07:40) DBP75(FEB 01 12:55)L 58(FEB 01:31)78(FEB 01 07:40) -GDM A2 is adequately controlled with diet alone and she is off treatment there after meals sugars in the range of 90-100 and the plan is for 75 g OGTT 6 weeks . Given her BMI of 47 she is increased risk for DVT however she had a vaginal delivery and she is freely ambulant. Her blood pressure elevation this morning prompted initiation of p.o. Procardia XL 30 mg and subsequent blood pressure control has been suboptimal and thus discharge was delayed and the Procardia XL 30 mg will be increased to twice daily dosing and additionally IV Lasix 20 mg to be given CARE PLAN [1]. Defer consideration for discharge to tomorrow [2]. Initial p.o. Procardia XL 30 mg twice daily and one-time dose of Lasix 20 mg I have seen and evaluated the patient. I have obtained the rogel portion of the history and physical examination as stated above. I have discussed the patient with the resident. I have reviewed the resident's documentation and agree with it. The medical decision making was done together with the resident and is documented in resident note. Inpatient Care: Floor time of 25 minutes Ismael Schaefer MD. Maternal Medicine Digitally Signed by FRANCIE SCHAEFER MD on 02/01/2022 04:26 PM [facility] [id number] Maternal and medicine Progress note Patient seen and discussed with resident. Resident exam confirmed. The patient has no complaints. She denies headache, visual disturbances, abdominal pain. Lochia has been appropriate. Agree with current resident assessment and plan. Recommend continuing four-point glucose checks. She will require a 75 g 2-hour GTT at the 6-week checkup. If blood pressure remains stable she can be discharged tomorrow. Follow-up should be arranged with the patient's OB at approximately day 7. Floor time at least 15 minutes. Digitally Signed by ISMAEL ROSARIO MD on 01/31/2022 12:56 PM [facility] [id number] Maternal and medicine Progress note Patient seen and discussed with resident. Resident exam reviewed and confirmed. The patient is comfortable and has no complaints. She denies headache, visual changes, abdominal pain. She is currently on magnesium sulfate seizure prophylaxis which we discontinued 24 hours postdelivery. Lochia is normal. Since delivery blood pressures have remained out of the severe range. Blood pressure since delivery is range between 70-124 without medications. Assessment/recommendations. 1. day 1 after vaginal delivery for severe preeclampsia at 36 weeks. Blood pressures arein a safe range without medication at this time. Magnesium sulfate should be continued until 24 hours postdelivery. 2. Gestational diabetes A2. Recommend fasting and 2-hour postprandial glucose checks at least for 48 hours. She will require 75 g GTT at 6-week checkup. Also recommend checking hemoglobin A1c now butas if it is elevated, it suggests high risk of requiring diabetic medication. 3. The patient initially had decreased urine output but responded adequately to a bolus. Creatininethis morning was 0.61 Floor time please 25 minutes Digitally Signed by ISMAEL ROSARIO MD on 01/30/2022 10:46 AM [facility] [id number] Maternal and medicine Consult note Asked to see patient by the OD S service for preeclampsia with severe features. The patient was a maternal transfer from [facility] from Dr. Danay De La Torre who was part of the [facility] practice there. The patient is a 36-year-old 4 para 3 at 36 weeks 0 days with a JANAE by 03/01/2022 by early ultrasound establishing dates. The patient was noted to have elevated blood pressures in the office yesterday. She was sent to [place] labor and delivery because of an elevated blood pressure. She was monitored briefly and then sent home. At home she had a blood pressure of 184/110 and nausea and vomiting as well as severe headache. She returned to [facility]. She received a dose of oral nifedipine and started on magnesium sulfate and transferred here. Currently the patient states she is comfortable. Induction of labor has been started and the patient has been continued on magnesium sulfate. She states her headache is much better. He has not required additional antihypertensives and blood pressures have been in the normal range. The patient has been complicated by gestational diabetes requiring glyburide for control.She has had gestational hypertension in past pregnancies. Early in she had polyhydramniosbut ultrasound done on 11/19/2021 showed normal fluid. EFW at that time was 3048 g which was the 84th percentile and abdominal circumference was greater than 97th percentile equivalent to a 37-week gestation. The patient has had 3 previous term vaginal deliveries ranging in weight from 7 pounds 2 ounces to 8 pounds 2 ounces. Each of those pregnancies was complicated by gestational hypertension. The patient has been on low-dose aspirin during the . Past medical history is negative for hypertension between pregnancies. Past surgical history she has had an umbilical hernia repair, LEEP, appendectomy and cholecystectomy. The remainder of the resident history, physical and review of systems was reviewed and confirmed. Assessment/recommendations. 1. Well dated intrauterine at 36 weeks 0 days with severe preeclampsia based on blood pressure. Although urine protein creatinine ratio was low, the absence of proteinuria does not exclude the diagnosis particularly in view of the patient's blood pressures. Labs are negative for help syndrome. 2. Gestational diabetes which has been treated with glyburide. Recommend hourly blood glucoses and to follow the ACOG protocol for fluids and insulin drip as needed. 3. heart rate tracing has been category 1. Baseline has been in the 100-1 10 range but this is likely a secondary effect of magnesium. The patient's temperature is 36.6 C. This mild degree of hypothermia is associated with magnesium administration and is the likely cause of the low baseline. 4. Anticipate vaginal delivery. Magnesium sulfate seizure prophylaxis should be continued for 24 hours . Digitally Signed by ISMAEL ROSARIO MD on 01/29/2022 01:21 PM [facility] [id number] Anesthesiology Consult note Patient: CARLINE BORDEN Age: 36 years Sex: Female : 1985 Associated Diagnoses: None Author: SUNSHINE LUDWIG Preoperative Information Time of last food or liquid consumption: 01/28/2022 17:00:00 Anesthesia history Patient's history: negative. Family's history: negative. Review of Systems Ear/Nose/Mouth/Throat: Negative. Respiratory: Negative. Cardiovascular: Htn. Gastrointestinal: Reflux. Genitourinary: Negative. Endocrine: GDM. Musculoskeletal: Negative. Integumentary: Negative. Neurologic: Negative. Reproductive: Para Scoring , EDC 02/25/2022. Tubal: Yes. Health Status Allergies: Allergic Reactions (Selected) NKA, Allergies (1) ActiveReaction NKANone Documented Current medications: (Selected) Inpatient Medications Ordered Bicitra: 30 mL, Oral, AsDirected, PRN: Other (see order comments) Bolus LR 500 mL: 500 mL, IV Bolus, AsDirected, PRN: Other (see order comments) LR 1,000 mL: 125 mL/hr, Intravenous Magnesium Sulfate for IV 20 gram(s) [2 gm/hr] + Sterile Water Premix Diluent 500 mL: 50 mL/hr, Intravenous Magnesium Sulfate for IV 20 gram(s) [2 gm/hr] + Sterile Water Premix Diluent 500 mL: 50 mL/hr, Intravenous Oxytocin for IV (mL/hr) 20 unit(s) + LR Premix Diluent 1,000 mL: after delivery of placenta, see order comments, Intravenous PCN G 2,000,000 units/50mL IVPB: 2,000,000 unit(s), 50 mL, 100 mL/hr, IV Piggyback, Once Pfizerpen: 3,000,000 unit(s), 50 mL, 100 mL/hr, IV Piggyback, q4h Zofran: 4 mg, 2 mL, IV Push, q4h, PRN: Nausea/Vomiting Prescriptions Prescribed Blood Glucose Test Strips: See Instructions, Check 4x/Day, 120 strips for a One Touch Ultra 2, 1 EA, 0 Refill(s) aspirin 81 mg oral delayed release tablet: 81 mg, 1 tab(s), Oral, Daily, for 9 month(s), 90 tab(s),2 Refill(s) glyBURIDE 5 mg oral tablet: 5 mg, 1 tab(s), Oral, BIDM, for 30 day(s), 60 tab(s), 1 Refill(s) ondansetron 4 mg oral tablet: 4 mg, 1 tab(s), Oral, q8h, PRN: Nausea/Vomiting, 30 tab(s), 1 Refill(s) Documented Medications Documented Multivitamins: 1 tab(s), Oral, qDay, 0 Refill(s), Medications (8) Active Scheduled: (2) penicillin G potassium 3,000,000 unit(s) 50 mL, IV Piggyback, q4h penicillin G potassium 2,000,000 unit(s) 50 mL, IV Piggyback, Once Continuous: (3) Lactated Ringers 1,000 mL 1,000 mL, Intravenous, 125 mL/hr magnesium sulfate 20 gram(s) [2 gm/hr] + Sterile Water Premix Diluent 500 mL 500 mL, Intravenous, 50 mL/hr Oxytocin 20 units in Lactated Ringers 1000 mL 20 unit(s) + LR Premix Diluent 1,000 mL 1,000 mL, Intravenous PRN: (3) citric acid-sodium citrate 334 mg-500 mg/5 mL (30 mL) Ree UD 30 mL, Oral, AsDirected Lactated Ringers Injection 500 mL * Bolus * 500 mL, IV Bolus, AsDirected ondansetron 2 mg/ 1 mL 2 mL INJ 4 mg 2 mL, IV Push, q4h Problem list: Medical History of gestational diabetes in prior , currently in first trimester / SNOMED CT 5585637075 / Confirmed Body mass index 30+ - obesity / SNOMED CT 277503733 / Confirmed Gestational diabetes / SNOMED CT 98711978 / Confirmed Gestational diabetes mellitus, class A>2< / SNOMED CT 42097478 / Confirmed History of gestational hypertension / SNOMED CT 9107071641 / Confirmed Chronic hypertension / SNOMED CT 9632265683 / Confirmed AMA (advanced maternal age) multigravida 35+ / SNOMED CT 7819216872 / Confirmed Encounter for supervision of normal in multigravida in third trimester / SNOMED CT 504902153 / Confirmed Obesity during in first trimester / SNOMED CT 6624613532 / Confirmed / SNOMED CT 465390955 / Confirmed, Active Problems (10) AMA (advanced maternal age) multigravida 35+ Body mass index 30+ - obesity Chronic hypertension Encounter for supervision of normal in multigravida in third trimester Gestational diabetes Gestational diabetes mellitus, class A>2< History of gestational diabetes in prior , currently in first trimester History of gestational hypertension Obesity during in first trimester Histories Past Medical History: Resolved ([id number]): Onset on 07/11/2019 at 33 years. Resolved on 03/26/2020 at 34 years. ([id number]): Onset on 03/06/2015 at 29 years. Resolved on 12/10/2015 at 30 years. ([id number]): Onset on 12/26/2013 at 28 years. Resolved on 09/18/2014 at 28 years. Family History: Breast cancer Maternal Grandmother: onset at 70 . HTN - Hypertension Father Mother Diabetes Mother Procedure history: Appendectomy ([id number]) in 2019 at 33 Years. Umbilical Hernia repair ([id number]) in 2019 at 33 Years. Comments: 06/29/2021 14:14 YADIT - Mary Hawley LPN x 2 Cholecystotomy ([id number]) in 2007 at 22 Years. LEEP ([id number]) in 2008 at 22 Years. Social History Social & Psychosocial Habits Alcohol 06/29/2021 Use: Current Frequency: 1-2 times per year Substance Abuse 06/29/2021 Use: Never Tobacco 06/29/2021 Tobacco Use: Former smoker, quit more Stopped at age: 22 Years Nutrition/Health 06/29/2021 Caffeine intake amount: 1 serving daily . Physical Examination Vital Signs 01/28/2022 22:15 EDT Heart Rate Monitored 98 bpm Systolic Blood Pressure 148 mmHg HI Diastolic Blood Pressure 78 mmHg Mean Arterial Pressure 101 mmHg 01/28/2022 22:00 EDT Temperature Oral 36.7 DegC Heart Rate Monitored 97 bpm Respiratory Rate 18 br/min Systolic Blood Pressure 153 mmHg HI Diastolic Blood Pressure 77 mmHg Mean Arterial Pressure 102 mmHg 01/28/2022 20:47 EDT Heart Rate Monitored 78 bpm Respiratory Rate 18 br/min Systolic Blood Pressure 87 mmHg LOW Diastolic Blood Pressure 72 mmHg Mean Arterial Pressure 77 mmHg 01/28/2022 20:32 EDT Heart Rate Monitored 93 bpm Respiratory Rate 18 br/min Systolic Blood Pressure 108 mmHg Diastolic Blood Pressure 74 mmHg Mean Arterial Pressure 85 mmHg 01/28/2022 20:17 EDT Heart Rate Monitored 96 bpm Respiratory Rate 18 br/min Systolic Blood Pressure 129 mmHg Diastolic Blood Pressure 62 mmHg Mean Arterial Pressure 84 mmHg 01/28/2022 20:02 EDT Heart Rate Monitored 97 bpm Respiratory Rate 18 br/min Systolic Blood Pressure 150 mmHg HI Diastolic Blood Pressure 86 mmHg Mean Arterial Pressure 107 mmHg 01/28/2022 19:47 EDT Temperature Oral 36.8 DegC Heart Rate Monitored 88 bpm Respiratory Rate 18 br/min Systolic Blood Pressure 149 mmHg HI Diastolic Blood Pressure 87 mmHg Mean Arterial Pressure 108 mmHg 01/28/2022 19:32 EDT Heart Rate Monitored 93 bpm Respiratory Rate 18 br/min Systolic Blood Pressure 161 mmHg HI Diastolic Blood Pressure 84 mmHg Mean Arterial Pressure 110 mmHg 01/28/2022 19:20 EDT Systolic Blood Pressure 162 mmHg HI Diastolic Blood Pressure 80 mmHg 01/28/2022 19:10 EDT Heart Rate Monitored 98 bpm Systolic Blood Pressure 167 mmHg HI Diastolic Blood Pressure 87 mmHg Mean Arterial Pressure 114 mmHg 01/28/2022 19:02 EDT Heart Rate Monitored 101 bpm HI Systolic Blood Pressure 159 mmHg HI Diastolic Blood Pressure 89 mmHg Mean Arterial Pressure 112 mmHg 01/28/2022 13:30 EDT Heart Rate Monitored 85 bpm Systolic Blood Pressure 124 mmHg Diastolic Blood Pressure 59 mmHg LOW Mean Arterial Pressure 81 mmHg 01/28/2022 12:30 EDT Heart Rate Monitored 90 bpm Systolic Blood Pressure 118 mmHg Diastolic Blood Pressure 58 mmHg LOW Mean Arterial Pressure 78 mmHg 01/28/2022 12:00 EDT Heart Rate Monitored 89 bpm Systolic Blood Pressure 135 mmHg Diastolic Blood Pressure 61 mmHg Mean Arterial Pressure 86 mmHg 01/28/2022 11:44 EDT Systolic Blood Pressure 139 mmHg Diastolic Blood Pressure 71 mmHg 01/28/2022 10:52 EDT Systolic Blood Pressure 150 mmHg HI Diastolic Blood Pressure 110 mmHg >HHI Mean Arterial Pressure 123 mmHg Vital Signs(last 24 hrs) Last Charted Temp Oral36.7 DegC (JAN 28 22:00) Heart Rate [id number] bpm (JAN 28 22:15) Resp Rate 18 br/min (JAN 28 22:00) BMI47.66 (JAN 28 22:02) Measurements from flowsheet : Measurements 01/28/2022 22:02 EDT Height 162.6 cm Admission Weight 126 kg [place] Body Weight 54.74 kg BSA Admission 2.25 Body Mass Index 47.66 kg/m2 01/28/2022 19:00 EDT Height 162.65 cm Admission Weight 128 kg [place] Body Weight 54.78 kg BSA Admission 2.27 Body Mass Index 48.38 kg/m2 01/28/2022 12:04 EDT Height 162.6 cm Admission Weight 122.7 kg [place] Body Weight 54.74 kg BSA Admission 2.22 Body Mass Index 46.41 kg/m2 01/28/2022 10:52 EDT Height 162.5 cm [place] Body Weight 54.65 kg Pre- Weight 127.8 kg Cumulative Weight Gain -2 kg Weight Measured 126.2 kg BSA 0 Body Mass Index Measured 47.8 kg/m2 Pain assessment: Pain Assessment 01/28/2022 22:00 EDT Primary Pain Location Headache Primary Pain Laterality Bilateral Primary Pain Intensity 7 Primary Pain Quality Aching, Throbbing Primary Pain Non-Pharma Intervention Lights dimmed, Repositioning Primary Pain Nonverbal Response Nods Yes Pain Scale Type 0-10 Pain scale 01/28/2022 11:44 EDT Primary Pain Location Headache Primary Pain Laterality Medial Primary Pain Intensity 4 Primary Pain Time Pattern acute, intermittent Primary Pain Onset Gradual Primary Pain Quality Aching Pain Scale Type 0-10 Pain scale . General: Alert and oriented, No acute distress. Airway: Normal temporomandibular joint mobility. Mallampati classification: II (soft palate, fauces, uvula visible). Head: Normocephalic, Atraumatic. Dentition Evaluation: Intact, Own teeth. Respiratory: Respirations are non-labored, Symmetrical chest wall expansion. Cardiovascular: Normal rate. Gastrointestinal: gravid. Musculoskeletal Normal range of motion. Normal strength. No tenderness. Integumentary: Intact, Warm, Dry, [place]. Neurologic: Alert, Oriented, Normal sensory, Normal motor function. Review / Management Results review: No qualifying data available , Lab results 01/28/2022 22:40 EDT penicillin G potassium 3,000,000 unit(s) unit(s) 01/28/2022 22:27 EDT Edu-Equipment/Devices Verbalizes/Nonverbally indicates understanding Edu-Pain Management Verbalizes/Nonverbally indicates understanding Ed-Plan of Care Verbalizes/Nonverbally indicates understanding Ed-Safety, Fall Verbalizes/Nonverbally indicates understanding Individuals Taught Patient Learning Readiness Willing to learn Barriers to Learning None evident Teaching Method Explanation Preferred Written Language Gabonese Preferred Spoken Language Gabonese General Infection Prevention Strategies Hand hygiene, Remind visitor/caregiver to wash hands, Remind patient/visitor to mask when w/Healthcare Provider, Respiratory hygiene - Cover Your Cough Visitors Isolation Precautions Education Hand hygiene Catheter Associated UTI Prevention CAUTI FAQ provided Infection Prevention Teaching Evaluation Verbalizes/Nonverbally indicates understanding Ed- Monitoring Verbalizes/Nonverbally indicates understanding Ed-Contractions Verbalizes/Nonverbally indicates understanding [id number] Verbalizes/Nonverbally indicates understanding Ed-Gestational Hypertension Verbalizes/Nonverbally indicates understanding Ed-Fever During Verbalizes/Nonverbally indicates understanding Ed-Medication Side Effects Verbalizes/Nonverbally indicates understanding Ed-Complications of Labor/Delivery Verbalizes/Nonverbally indicates understanding Ed-LD Activity Verbalizes/Nonverbally indicates understanding Ed-LD Nutrition/Fluids Verbalizes/Nonverbally indicates understanding Ed-LD Comfort Measures Verbalizes/Nonverbally indicates understanding Ed-Anesthesia Plans Verbalizes/Nonverbally indicates understanding Ed-Induction Process Verbalizes/Nonverbally indicates understanding Ed-Ruptured Membranes Verbalizes/Nonverbally indicates understanding Ed-LD Safety Verbalizes/Nonverbally indicates understanding Ed-LD Treatments/Procedures/Tests Verbalizes/Nonverbally indicates understanding Ed-Infection Signs/Symptoms Verbalizes/Nonverbally indicates understanding Ed-Drug to Food Interactions Verbalizes/Nonverbally indicates understanding Edu-Drug to Drug Interactions Verbalizes/Nonverbally indicates understanding Edu-Med Preadministration Procedures Verbalizes/Nonverbally indicates understanding Ed-Medication Dosage, Route, Scheduling Verbalizes/Nonverbally indicates understanding Edu-Med Generic/Brand Name,Purpose,Action Verbalizes/Nonverbally indicates understanding Ed-Diagnostic Results Verbalizes/Nonverbally indicates understanding 01/28/2022 22:25 EDT Cervix Dilation 3 cm Cervix Effacement 50 Station -4 Presenting Part Vertex Baby A Membrane Status: Intact 01/28/2022 22:20 EDT O-Remains Free From Injury Met Edu-Pain Management Verbalizes/Nonverbally indicates understanding Ed- Monitoring Verbalizes/Nonverbally indicates understanding Ed-Gestational Hypertension Verbalizes/Nonverbally indicates understanding Ed-Safety Verbalizes/Nonverbally indicates understanding Ed-Complications of Labor/Delivery Verbalizes/Nonverbally indicates understanding Ed-Patient/Caregiver about Hand Hygiene Verbalizes/Nonverbally indicates understanding 01/28/2022 22:15 EDT Heart Rate Monitored 98 bpm Systolic Blood Pressure 148 mmHg HI Diastolic Blood Pressure 78 mmHg Mean Arterial Pressure 101 mmHg Oxygen Saturation 100 % 01/28/2022 22:10 EDT Monitoring Annotations Primary nurse at bedside; Vaginal exam performed per Dr. Zane Raman 01/28/2022 22:02 EDT Designated Person #1 We May Share PHI Lul borden [phone] Designated Person #1 Relationship Spouse Privacy Restrictions Requested None Height 162.6 cm Admission Weight 126 kg [place] Body Weight 54.74 kg BSA Admission 2.25 Body Mass Index 47.66 kg/m2 Expected Outcome Live Patient Type Inpatient Thrombosis Risk Factors (1) Obesity (greater than 20% over ideal body weight or BMI, (1) or post- less than 1 month Thrombosis Risk Factor Add'l Assessment NA Thrombosis Risk Score 2 Status Yes Risk Factors, Antepartum Current Preg None Movement Present Vaginal bleeding No PPH Risk Medium risk for hemorrhage PPH Medium Risk Factors Magnesium sulfate use Infant Feeding Breast Anesthesia/Pain Medication During Labor Epidural/Spinal Baby For Adoption No Surrogate No Tubal Sterilization Planned Yes Discharge Physician ANITA quinones Written Plan No WIC Participant N/A Safe Sleep Environment for Baby Yes Safe Sleep Environment Outside Home Yes Maternal Transport Yes Transferring [facility] Thoughts of Harming Others - History No Thoughts of Suicide - History No Coping Effective Emotional Abuse History Denies Physical Abuse History Denies Sexual Abuse Denies Hospital Clergy to Visit Patient Verbalizes No Spiritual Needs Financial Concerns Re: Hospital/Disch No Living Situation Home independently Current Home Treatments None Professional Skilled Services None Special Services and Community Resources None Advanced Directives No - refuses information Infectious Disease Symptoms Patient states no symptoms Infectious Disease Recent Exposure No Alcohol and Drug Use No Employee of Institutional Living No Health Care Employee No History of Exposure to TB No History of Positive Chest X-Ray for TB No History of Positive TB Skin Test No Homeless No Known Immunosuppression No Recent Immigrant No Resident of Institutional Living No Bloody Sputum No Fatigue No Fever No Loss of Appetite No Night Sweats No Persistent Cough > 3 Weeks No Weight Loss No Safety Brochure Information Reviewed Yes Christian Linn Video Viewed Yes Teaching Evaluation Verbalizes/Nonverbally indicates understanding Preferred Written Language Gabonese Preferred Spoken Language Gabonese Chief Complaint transport Mode of Arrival Ambulatory Accompanied by Significant other Information Given by Patient Emergency Contact Number Lul Borden [phone] Belongings At Bedside Earrings Personal Home Medications Received No home medications were brought in Belongings Sent Home None Belongings Sent To Security None Discharge To, Anticipated Home independently Other Anticipated Needs After Discharge No Anticoagulants Taken In Past 6 Wks. No Prev Test Positive/Diagnosis w/COVID-19 Yes Previous COVID-19 Positive Date july 2021 Current Quarantine/Isolated any Illness No Any Contact with Sick Animals/Birds No Traveled Anywhere in Last 30 Days No Influenza Vaccine Need No prior receipt of vaccine Influenza Risk Factors age 6 months and older Influenza Vaccine Contraindications None Forego Influenza Vaccination Patient/Caregiver refused vaccine No Able To Drink Order Detail Yes Able To Sign Consents Order Detail Yes Code Status Order Detail Full code IV Order Detail Yes Dialysis Schedule Order Detail N/A Has Diabetes Order Detail Yes Isolation Precautions Order Detail None Nurse Collect Order Detail 1 Oxygen Order Detail No Order Detail Yes Prior Valve Replacement Order Detail No Transport Mode Order Detail Ambulatory Anesthesia/Transfusions Prior anesthesia Admission Note-Nursing Patient History OB 01/28/2022 22:00 EDT Temperature Oral 36.7 DegC Heart Rate Monitored 97 bpm Respiratory Rate 18 br/min Systolic Blood Pressure 153 mmHg HI Diastolic Blood Pressure 77 mmHg Mean Arterial Pressure 102 mmHg Primary Pain Location Headache Primary Pain Laterality Bilateral Primary Pain Intensity 7 Primary Pain Quality Aching, Throbbing Primary Pain Non-Pharma Intervention Lights dimmed, Repositioning Primary Pain Nonverbal Response Nods Yes Pain Scale Type 0-10 Pain scale Nail Bed Color [place] Dorsalis Pedis Pulse, Left 2+ Normal Dorsalis Pedis Pulse, Right 2+ Normal Edema Generalized 1+ trace/2mm Bilateral Pedal Edema 1+ trace/2mm Respirations Unlabored Respiratory Pattern Regular All Lobes Breath Sounds Clear, Equal Cough None Oxygen Therapy Room air Oxygen Saturation 100 % GI Symptoms Flatulence Abdomen Description Non-distended, Soft Bowel Sounds All Quadrants Present Urinary Elimination Voiding, no difficulties Clonus Not present Reason for Magnesium Sulfate Therapy Preeclampsia Safety Check, Magnesium Sulfate Calcium gluconate available on unit, Side rails Patient Tolerance, Magnesium Sulfate Tolerated well Patient Coping Mellissa w/stresses of , care Support Person Present Support Person Involvement Supportive/involved Patient feelings/concerns Discusses care, feelings, concerns Shortness of Breath No Skin Temperature Warm Skin Description [place] Skin Integrity Intact Sensory Perception González No impairment Moisture González Rarely moist Activity González Walks frequently Mobility González No limitations Nutrition González Excellent Friction and Shear González No apparent problem González Score 23 Hospital Acquired Pressure Injury Risk None/minimal risk (score 19-23) Wrist Right 01/28/2022 18 gauge Peripheral IV Activity: Assessed Peripheral IV Dressing Condition: Clean, Dry, Intact Peripheral IV Dressing Activity: Transparent dressing Peripheral IV Line Status/Patency: Continuous infusion Peripheral IV Site Condition: No complications Peripheral IV Equipment: IV Pump Neurological Symptoms Dizziness, Headache Level of Consciousness Alert Strength All Extremities Strong Tone All Extremities Normal Left Knee Reflex 2+ Right Knee Reflex 2+ Arthur Screen Daily History of Fall in Last 3 Months Arthur No Presence of Secondary Diagnosis Arthur No Use of Ambulatory Aid Arthur None, bedrest, wheelchair, nurse IV/PRN Adapter Fall Risk Arthur Yes Gait Weak or Impaired Fall Risk Arthur Normal, bedrest, immobile Mental Status Fall Risk Arthur Oriented to own ability Arthur Fall Risk Score 20 Violence Risk Confused No Violence Risk Irritable No Violence Risk Boisterous No Violence Risk Verbal Threats No Violence Risk Physical Threats No Violence Risk Attacking Objects No Violence Risk Predictor Score 0 Violence Risk Intervention None Violence Risk Current Interventions None Orientation Oriented x 4 Ambulation Repositions self Pt./Caregiver Remote Cont.Visual Monitor Verbalizes/Nonverbally indicates understanding Activity Status ADL Awake, Complete bedrest Standard Safety ID band on, Call device within reach, Bed in low position, Wheels locked, Upper/Half-Length side-rails up, Phone within reach, personal items within reach, Assistive devices within reach Demonstrates Correct Call Light Use Yes magnesium sulfate 2 gm/hr gram(s) (Modified) SW Premix Diluent SW Premix Diluent mL (Modified) 01/28/2022 21:06 EDT Patient Information Note called Gisele to let know patient left facility 01/28/2022 21:04 EDT Reason for Transfer Medically indicated transfer Patient's Condition for Transfer Stable Patient Transfer Form Patient Transfer Form 01/28/2022 21:00 EDT Transfer To/From Other: To [facility] from [facility] Mode of Arrival Stretcher Patient's Condition for Transfer Stable 01/28/2022 20:47 EDT Heart Rate Monitored 78 bpm Respiratory Rate 18 br/min Systolic Blood Pressure 87 mmHg LOW Diastolic Blood Pressure 72 mmHg Mean Arterial Pressure 77 mmHg 01/28/2022 20:32 EDT Heart Rate Monitored 93 bpm Respiratory Rate 18 br/min Systolic Blood Pressure 108 mmHg Diastolic Blood Pressure 74 mmHg Mean Arterial Pressure 85 mmHg 01/28/2022 20:23 EDT magnesium sulfate Begin Bag 40 mL gram(s) SW Premix Diluent Begin Bag 500 mL mL 01/28/2022 20:17 EDT Heart Rate Monitored 96 bpm Respiratory Rate 18 br/min Systolic Blood Pressure 129 mmHg Diastolic Blood Pressure 62 mmHg Mean Arterial Pressure 84 mmHg Date/Time Transfer Accepted 01/28/2022 19:55 Nurse Receiving Report Gisele Campuzano Date/Time Nurse Received Report 01/28/2022 20:00 01/28/2022 20:02 EDT Heart Rate Monitored 97 bpm Respiratory Rate 18 br/min Systolic Blood Pressure 150 mmHg HI Diastolic Blood Pressure 86 mmHg Mean Arterial Pressure 107 mmHg Uterine Contraction Monitoring Method External toco Uterine Activity Uterine irritability Baby A FHR Baseline: 130 bpm FHR Baseline Variability: Moderate variability FHR Accelerations: Present FHR Deceleration: Absent FHR Monitoring Method: External US transducer 01/28/2022 19:53 T [facility] History and Physical History and Physical/ Transfer 01/28/2022 19:49 EDT magnesium sulfate 4 gram(s) gram(s) magnesium sulfate 2 gram(s) gram(s) 01/28/2022 19:47 EDT Notify date/time 01/28/2022 19:45 Provider Notified DANAY DE LA TORRE MD Notification Method Face to face conversation Information Communicated Nurse communication Details Communicated IV in, getting ready to start magnesium bolus Temperature Oral 36.8 DegC Heart Rate Monitored 88 bpm Respiratory Rate 18 br/min Systolic Blood Pressure 149 mmHg HI Diastolic Blood Pressure 87 mmHg Mean Arterial Pressure 108 mmHg Edema Generalized 1+ trace/2mm Bilateral Pedal Edema 1+ trace/2mm All Lobes Breath Sounds Clear, Equal Clonus Not present Reason for Magnesium Sulfate Therapy Gestational hypertension Safety Check, Magnesium Sulfate Calcium gluconate available on unit, Side rails padded, Seizure precautions initiated Comfort Measures, Magnesium Sulfate Cool washcloth Patient Tolerance, Magnesium Sulfate Hot flash Shortness of Breath No Level of Consciousness Alert Left Knee Reflex 2+ Right Knee Reflex 2+ Orientation Oriented x 4 01/28/2022 19:32 EDT Heart Rate Monitored 93 bpm Respiratory Rate 18 br/min Systolic Blood Pressure 161 mmHg HI Diastolic Blood Pressure 84 mmHg Mean Arterial Pressure 110 mmHg Wrist Right 01/28/2022 18 gauge Peripheral IV Activity: Insert new site Peripheral IV Dressing Condition: Clean, Dry, Intact Peripheral IV Dressing Activity: Transparent dressing Peripheral IV Line Status/Patency: Flushes easily Peripheral IV Site Condition: No complications Peripheral IV Equipment: IV Pump Peripheral IV Number of Attempts: 1 01/28/2022 19:20 EDT Systolic Blood Pressure 162 mmHg HI Diastolic Blood Pressure 80 mmHg NIFEdipine 10 mg mg 01/28/2022 19:10 EDT Notify date/time 01/28/2022 19:07 Provider Notified DANAY DE LA TORRE MD Notification Method Phone Information Communicated Nurse communication Details Communicated Vitals discussed, headache 10/11 Notification Outcome Orders received Person Reporting Result(s) Hattie Middleton, RN Details of Results Received Transfer to [facility], numbers given for transfer, nifedipine, magnesium Heart Rate Monitored 98 bpm Systolic Blood Pressure 167 mmHg HI Diastolic Blood Pressure 87 mmHg Mean Arterial Pressure 114 mmHg Activity Status ADL Awake, Resting Standard Safety ID band on, Call device within reach, Bed in low position, Wheels locked, Upper/Half-Length side-rails up, Phone within reach, personal items within reach, Visitor at bedside, Safety level maintained 01/28/2022 19:05 EDT Uterine Contraction Monitoring Method External toco Patient Position, OB Left tilt Baby A FHR Monitoring Method: External US transducer Heart Tone: 150 01/28/2022 19:03 EDT OB Screen /Para Para > 3 (2) OB Screen Gestational Age 35-36 weeks (1) OB Screen Cervical Dilatation Cervical exam not done OB Screen Cervical Effacement Cervical exam not done OB Screen Station Cervical exam not done OB Screen Cervical Position Cervical exam not done OB Screen Presentation Cervical exam not done OB Screen Contraction Pattern None OB Screen Contraction Strength Not applicable OB Screen Membranes Intact (0) OB Screen FHR Variability Moderate (0) OB Screen Duration of Fastest Labor > 3 hours (0) OB Screen Travel Time 0-30 minutes (0) OB Screen Previous Uterine Scar None (0) OB Screen Pain None (0) OB Screen Pain Unrelated to Contractions None OB Screen Total Score 3 Presence of decelerations No Vaginal bleeding No Prolapsed Cord or Part No Persistent Maternal BP>140/90 No Persistent Headache Yes Visual Disturbances No Epigastric Pain No Proteinuria > 2+ No with dilation of 5cm or > No Non-reassuring FHR pattern No FHR Baseline < 110 or > 160 bpm No Decreased Movement/NR NST No No Care in Active Labor No Purulent Vaginal Discharge No Maternal Temp of > 38 degrees Celsius No Membranes Intact Yes Trauma OB Screen No OB Visit Outcome Admitted Chief Complaint headache Ralph OB Screen Note OB Screening Ralph (Modified) OB Screening Form Ralph OB Screening Form Ralph (Modified) 01/28/2022 19:02 EDT Heart Rate Monitored 101 bpm HI Systolic Blood Pressure 159 mmHg HI Diastolic Blood Pressure 89 mmHg Mean Arterial Pressure 112 mmHg 01/28/2022 19:00 EDT Designated Person #1 We May Share PHI Lul borden [phone] Designated Person #1 Relationship Spouse Privacy Restrictions Requested None Height 162.65 cm Admission Weight 128 kg [place] Body Weight 54.78 kg BSA Admission 2.27 Body Mass Index 48.38 kg/m2 Expected Outcome Live Patient Type Inpatient Thrombosis Risk Factors (1) Obesity (greater than 20% over ideal body weight or BMI, (1) or post- less than 1 month Thrombosis Risk Factor Add'l Assessment NA Thrombosis Risk Score 2 Status Yes Risk Factors, Antepartum Current Preg Diabetes, gestational, non-insulin dependent Movement Present Vaginal bleeding No PPH Risk Low risk for hemorrhage PPH Low Risk Factors Ricardo , Less than 4 previous deliveries, Unscarred uterus, Absence of hemorrhage history Feeding Breast Anesthesia/Pain Medication During Labor Epidural/Spinal Baby For Adoption No Surrogate No Discharge Physician [facility] Participant No Safe Sleep Environment for Baby Yes Safe Sleep Environment Outside Home Yes Maternal Transport No Thoughts of Harming Others - History No Thoughts of Suicide - History No Coping Effective Emotional Abuse History Denies Physical Abuse History Denies Sexual Abuse Denies Hospital Clergy to Visit Patient Verbalizes No Spiritual Needs Financial Concerns Re: Hospital/Disch No Living Situation Lives with family Current Home Treatments None Professional Skilled Services None Special Services and Community Resources None Advanced Directives No - refuses information Infectious Disease Symptoms Nausea Infectious Disease Recent Exposure No Alcohol and Drug Use No Employee of Institutional Living No Health Care Employee No History of Exposure to TB No History of Positive Chest X-Ray for TB No History of Positive TB Skin Test No Homeless No Known Immunosuppression No Recent Immigrant No Resident of Institutional Living No Bloody Sputum No Fatigue No Fever No Loss of Appetite No Night Sweats No Persistent Cough > 3 Weeks No Weight Loss No Safety Brochure Information Reviewed Yes Christian Linn Video Viewed Patient refused Teaching Evaluation Verbalizes/Nonverbally indicates understanding Preferred Written Language Gabonese Preferred Spoken Language Gabonese Chief Complaint headache Mode of Arrival Wheelchair Accompanied by Spouse Information Given by Patient Emergency Contact Number Lul Borden [phone] Belongings At Bedside None Personal Home Medications Received No home medications were brought in Belongings Sent Home None Belongings Sent To Security None Discharge To, Anticipated Home independently Other Anticipated Needs After Discharge No Anticoagulants Taken In Past 6 Wks. No Prev Test Positive/Diagnosis w/COVID-19 Yes Previous COVID-19 Positive Date July Current Quarantine/Isolated any Illness No Any Contact with Sick Animals/Birds No Traveled Anywhere in Last 30 Days No Influenza Vaccine Need No prior receipt of vaccine Influenza Risk Factors age 6 months and older Influenza Vaccine Contraindications None Forego Influenza Vaccination Patient/Caregiver refused vaccine No Able To Drink Order Detail Yes Able To Sign Consents Order Detail Yes Code Status Order Detail Full code IV Order Detail No Dialysis Schedule Order Detail N/A Has Diabetes Order Detail No Isolation Precautions Order Detail None Nurse Collect Order Detail 0 Oxygen Order Detail No Order Detail Yes Prior Valve Replacement Order Detail No Transport Mode Order Detail Ambulatory Anesthesia/Transfusions Prior anesthesia Admission Note-Nursing Patient History OB 01/28/2022 15:35 EDT Monitoring Annotations Triage Evaluation 01/28/2022 14:00 EDT Notify date/time 01/28/2022 13:50 Provider Notified DANAY DE LA TORRE MD Notification Method Phone Information Communicated Lab results, Nurse communication Details Communicated Discussed labs, vitals, patient has blood pressure machine at home. Notification Outcome Orders received Person Reporting Result(s) Hattie Middleton RN Oxygen Saturation 99 % Uterine Contraction Monitoring Method External toco Uterine Activity Not emilee Baby A FHR Baseline: 125 bpm FHR Baseline Variability: Moderate variability FHR Accelerations: Present FHR Deceleration: Absent FHR Monitoring Method: External US transducer Activity Status ADL Awake Standard Safety Safety level maintained 01/28/2022 13:57 EDT [facility] Inpatient Discharge Instructions 01/28/2022 13:57 EDT Hand Right 01/28/2022 18 gauge Peripheral IV Activity: Discontinued Peripheral IV Dressing Condition: Clean, Dry, Intact Peripheral IV Dressing Activity: Applied, Gauze dressing Peripheral IV Removal Reason: No longer indicated 01/28/2022 13:50 EDT [facility] Obstetric[facility] Progress Note Triage note 01/28/2022 13:30 EDT Heart Rate Monitored 85 bpm Systolic Blood Pressure 124 mmHg Diastolic Blood Pressure 59 mmHg LOW Mean Arterial Pressure 81 mmHg Oxygen Saturation 100 % 01/28/2022 13:00 EDT Oxygen Saturation 99 % Uterine Contraction Monitoring Method External toco Uterine Activity Not emilee Baby A FHR Baseline: 125 bpm FHR Baseline Variability: Moderate variability FHR Accelerations: Present FHR Deceleration: Absent FHR Monitoring Method: External US transducer 01/28/2022 12:30 EDT Heart Rate Monitored 90 bpm Systolic Blood Pressure 118 mmHg Diastolic Blood Pressure 58 mmHg LOW Mean Arterial Pressure 78 mmHg Oxygen Saturation 98 % 01/28/2022 12:09 EDT OB Screen /Para Para > 3 (2) OB Screen Gestational Age 35-36 weeks (1) OB Screen Cervical Dilatation Cervical exam not done OB Screen Cervical Effacement Cervical exam not done OB Screen Station Cervical exam not done OB Screen Cervical Position Cervical exam not done OB Screen Presentation Cervical exam not done OB Screen Contraction Pattern None OB Screen Contraction Strength Not applicable OB Screen Membranes Intact (0) OB Screen FHR Variability Moderate (0) OB Screen Duration of Fastest Labor > 3 hours (0) OB Screen Travel Time 0-30 minutes (0) OB Screen Previous Uterine Scar None (0) OB Screen Pain None (0) OB Screen Pain Unrelated to Contractions None OB Screen Total Score 3 Presence of decelerations No Vaginal bleeding No Prolapsed Cord or Part No Persistent Maternal BP>140/90 No Persistent Headache Yes Visual Disturbances No Epigastric Pain No Proteinuria > 2+ No with dilation of 5cm or > No Non-reassuring FHR pattern No FHR Baseline < 110 or > 160 bpm No Decreased Movement/NR NST No No Care in Active Labor No Purulent Vaginal Discharge No Maternal Temp of > 38 degrees Celsius No Membranes Intact Yes Trauma OB Screen No OB Visit Outcome Discharged Method of Certification Telephone/Read Back Date/Time of Certification 01/28/2022 13:50 Certifying Provider DANAY DE LA TORRE MD OB Certification Patient not in active labor, Patient has no emergency medical condition Chief Complaint high blood pressures Ralph OB Screen Note OB Screening Ralph (Modified) OB Screening Form Ralph OB Screening Form Ralph (Modified) 01/28/2022 12:04 EDT Designated Person #1 We May Share PHI Lul borden [phone] Designated Person #1 Relationship Spouse Privacy Restrictions Requested None Height 162.6 cm Admission Weight 122.7 kg [place] Body Weight 54.74 kg BSA Admission 2.22 Body Mass Index 46.41 kg/m2 Expected Outcome Live Patient Type Inpatient Thrombosis Risk Factors (1) Obesity (greater than 20% over ideal body weight or BMI, (1) or post- less than 1 month Thrombosis Risk Factor Add'l Assessment NA Thrombosis Risk Score 2 Status Yes Risk Factors, Antepartum Current Preg Advanced maternal age, Diabetes, gestational, non-insulin dependent, Other: high blood pressures Movement Present Vaginal bleeding No PPH Risk Low risk for hemorrhage PPH Low Risk Factors Ricardo , Less than 4 previous deliveries, Unscarred uterus, Absence of hemorrhage history Infant Feeding Breast Anesthesia/Pain Medication During Labor Epidural/Spinal Baby For Adoption No Surrogate No Discharge [place] Physician [facility] Participant No Safe Sleep Environment for Baby Yes Safe Sleep Environment Outside Home Yes Maternal Transport No Thoughts of Harming Others - History No Thoughts of Suicide - History No Coping Effective Emotional Abuse History Denies Physical Abuse History Denies Sexual Abuse Denies Hospital Clergy to Visit Patient Verbalizes No Spiritual Needs Financial Concerns Re: Hospital/Disch No Living Situation Lives with family Current Home Treatments None Professional Skilled Services None Special Services and Community Resources None Advanced Directives No - refuses information Infectious Disease Symptoms Patient states no symptoms Infectious Disease Recent Exposure No Alcohol and Drug Use No Employee of Institutional Living No Health Care Employee No History of Exposure to TB No History of Positive Chest X-Ray for TB No History of Positive TB Skin Test No Homeless No Known Immunosuppression No Recent Immigrant No Resident of Institutional Living No Bloody Sputum No Fatigue No Fever No Loss of Appetite No Night Sweats No Persistent Cough > 3 Weeks No Weight Loss No Safety Brochure Information [facility]ed [facility] View[facility] No Teaching Evaluation Verbalizes/Nonverbally indicates understanding Preferred Written Language Gabonese Preferred Spoken Language Gabonese Chief Complaint high blood pressures Mode of Arrival Wheelchair Accompanied by Spouse Information Given by Patient Emergency Contact Number Lul Borden [phone] Belongings At Bedside None Personal Home Medications Received No home medications were brought in Belongings Sent Home None Belongings Sent To Security None Discharge To, Anticipated Home independently Other Anticipated Needs After Discharge No Anticoagulants Taken In Past 6 Wks. No Prev Test Positive/Diagnosis w/COVID-19 Yes Previous COVID-19 Positive Date July 2021 Current Quarantine/Isolated any Illness No Any Contact with Sick Animals/Birds No Traveled Anywhere in Last 30 Days No Influenza Vaccine Need No prior receipt of vaccine Influenza Risk Factors age 6 months and older Influenza Vaccine Contraindications None Forego Influenza Vaccination None No Able To Drink Order Detail Yes Able To Sign Consents Order Detail Yes Code Status Order Detail Full code IV Order Detail Yes Dialysis Schedule Order Detail N/A Has Diabetes Order Detail No Isolation Precautions Order Detail None Nurse Collect Order Detail 0 Oxygen Order Detail No Order Detail No Prior Valve Replacement Order Detail No Transport Mode Order Detail Ambulatory Anesthesia/Transfusions Prior anesthesia Admission Note-Nursing Patient History OB 01/28/2022 12:00 EDT Heart Rate Monitored 89 bpm Systolic Blood Pressure 135 mmHg Diastolic Blood Pressure 61 mmHg Mean Arterial Pressure 86 mmHg Oxygen Saturation 99 % Uterine Contraction Monitoring Method External toco Uterine Activity Not emilee Baby A FHR Baseline: 125 bpm FHR Baseline Variability: Moderate variability FHR Accelerations: Present FHR Deceleration: Absent FHR Monitoring Method: External US transducer Hand Right 01/28/2022 18 gauge Peripheral IV Activity: Insert new site Peripheral IV Dressing Condition: Clean, Dry, Intact Peripheral IV Dressing Activity: Applied, Transparent dressing Peripheral IV Line Status/Patency: Flushes easily Peripheral IV Site Condition: No complications Peripheral IV Equipment: PRN Adaptor Activity Status ADL Awake Standard Safety ID band on, Call device within reach, Bed in low position, Wheels locked, Upper/Half-Length side-rails up, Phone within reach, personal items within reach, Visitor at bedside, Safety level maintained 01/28/2022 11:57 EDT WBC 8.8 10^3/mcL RBC 3.72 10^6/mcL LOW Hgb 10.1 G/dL LOW Hct 30.5 % LOW MCV 81.9 fL MCH 27.2 pg MCHC 33.2 G/dL RDW 16.1 % HI Platelet 154 10^3/mcL MPV 9.9 fL Neutrophil % 72.4 % Lymphocyte % 19.4 % Monocyte % 7.2 % Eosinophil % 0.5 % Basophil % 0.5 % Neutrophil, Absolute 6.4 10^3/mcL HI Lymphocyte, Absolute 1.7 10^3/mcL Monocyte, Absolute 0.6 10^3/mcL Eosinophil, Absolute 0.0 10^3/mcL Basophil, Absolute 0.0 10^3/mcL Glucose Level 75 mg/dL Sodium Level 138 mmol/L Potassium Level 4.1 mmol/L Chloride 105 mmol/L CO2 21 mmol/L LOW Electrolyte Balance 12.0 mEq/L BUN 7 mg/dL Creatinine Lvl (s) 0.55 mg/dL BUN/Creatinine Ratio 13 ratio Calcium Lvl 9.2 mg/dL Uric Acid Lvl 6.2 mg/dL Total Protein 6.3 G/dL LOW Albumin Level 2.7 G/dL LOW Globulin 3.6 G/dL NA A/G Ratio 0.8 ratio LOW Bili Total 0.8 mg/dL Alk Phos 184 U/L HI AST/SGOT 22 U/L ALT/SGPT 11 U/L LOW GFR Non- 124 ml/min/1.73sqm NA GFR 151 ml/min/1.73sqm NA U Creatinine 27.7 mg/dL LOW U Protein <6 mg/dL U Ratio Prot/Creat Unable to Calculate ratio Creatinine Clearance Calc 121.02 mL/min 01/28/2022 11:44 EDT Systolic Blood Pressure 139 mmHg Diastolic Blood Pressure 71 mmHg Primary Pain Location Headache Primary Pain Laterality Medial Primary Pain Intensity 4 Primary Pain Time Pattern acute, intermittent Primary Pain Onset Gradual Primary Pain Quality Aching Pain Scale Type 0-10 Pain scale NIFEdipine 10 mg mg 01/28/2022 11:38 EDT Patient Position, OB Left lateral Baby A FHR Monitoring Method: External US transducer Heart Tone: 130 01/28/2022 10:58 EDT D-EGA at Documented Date, Time 36 weeks 01/28/2022 10:52 EDT Chief Complaint Here for 36.0wk OB visit. 01/28/2022 10:52 EDT Glucose Urine Dipstick Negative Ketones Urine Dipstick Negative Blood Urine Dipstick Negative Nitrite Urine Dipstick Negative Leukocytes Urine Dipstick 2+ Moderate (Abnormal) Urine Protein WH Negative Height 162.5 cm [place] Body Weight 54.65 kg Pre- Weight 127.8 kg Cumulative Weight Gain -2 kg Weight Measured 126.2 kg BSA 0 Body Mass Index Measured 47.8 kg/m2 Systolic Blood Pressure 150 mmHg HI Diastolic Blood Pressure 110 mmHg >HHI Mean Arterial Pressure 123 mmHg Preferred Name Carline Father of Baby Name Hx Lul OB Follow Up AMB - Text Ambulatory Antepartum OB Follow Up Preferred Lab [facility] Preferred [facility] 01/27/2022 5:40 EDT CSummary CSUMMARY . Assessment and Plan [place] [employer] Anesthesi[employer] (ASA) physical status classification: Class II. Anesthetic Preoperative Plan Anesthetic technique: Epidural. Regional: Epidural. Risks discussed: nausea, vomiting, headache, sore throat, dental injury, hypotension, allergic reaction, serious complications. Informed consent: signed by patient. Digitally Signed by SUNSHINE LUDWIG on 01/28/2022 10:51 PM [id number] Note Date of Service 01/28/22 Chief Complaint headache History of Present Illness 36 yo @36.0 presents with headache, dizziness and elevated blood pressure. Patient complicated by obesity, AMA and gDM A2, as well as history of PIH in all of her prior pregnancies, earliest at 37 weeks. Patient seen in office today with BP 150/110, sent to triage for evaluation whereBP normalized, she was asymptomatic and labs were within normal limits and she was discharged home to monitor BP closely. She worsened at home with new onset nausea/vomiting and headache and BP was elevated up to 180s/100 per patient. She returned to labor and delivery and BP was elevated into the 160s/100. She received 10 mg procardia and magnesium sulfate was started for maternal neuroprotection. Her BP decreased to 140s/80s and she requires transfer to higher level of care for IOL. [facility]edwith MFM at [facility] in [place]-Dr Bah. She has no obstetrical complaints. She is experiencing normal movement. She is not having any contractions. Review of Systems Constitutional: Negative for fever, negative for chills, Eyes: Negative for vision changes, Cardiovascular: Negative for chest pain, negative for lightheadedness Respiratory: Negative for shortness of breath at rest, negative for shortness of breath with activity, Gastrointestinal: Negative for abdominal pain, positive for nausea, negative for vomiting, Genitourinary: Negative for dysuria negative vaginal discharge, negative for vaginal bleeding Neurological: Positive for abnormal or changing headaches, negative for numbness, negative for weakness, positivefor dizziness Physical Exam Vitals and Measurements HR: 98(Monitored) BP: 162/80 HT: 162.65 cm WT: 128 kg BMI: 48.38 Weight Dosing Weight: 128 kg (01/28/22) General: well groomed, well developed female who appears stated age Neuro: alert and oriented CN II-XII grossly intact Psych: pleasant mood, normal affect HEENT: NC/AT EOMI, neck without thyromegaly. no cervical lymphadenopathy CV: S1/S2 No MRCG, RRR Chest: CTABL no WRR Abd: S/NT/ND, gravid, term SCE /-[address] Quiros this morning Extremities: warm dry and intact, no clubbing, cyanosis or edema present. no rashes, varicosities, scars. no visible tattoos or piercings. no pitting edema. 1+ DTRs Lab Results WBC: 8.8 10^3/mcL (01/28/22 11:57:00) RBC: 3.72 10^6/mcL Low (01/28/22 11:57:00) Hgb: 10.1 G/dL Low (01/28/22 11:57:00) Hct: 30.5 % Low (01/28/22 11:57:00) MCV: 81.9 fL (01/28/22 11:57:00) MCH: 27.2 pg (01/28/22 11:57:00) MCHC: 33.2 G/dL (01/28/22 11:57:00) RDW: 16.1 % High (01/28/22 11:57:00) Platelet: 154 10^3/mcL (01/28/22 11:57:00) MPV: 9.9 fL (01/28/22 11:57:00) Neutrophil %: 72.4 % (01/28/22 11:57:00) Lymphocyte %: 19.4 % (01/28/22 11:57:00) Monocyte %: 7.2 % (01/28/22 11:57:00) Eosinophil %: 0.5 % (01/28/22 11:57:00) Basophil %: 0.5 % (01/28/22 11:57:00) Neutrophil, Absolute: 6.4 10^3/mcL High (01/28/22 11:57:00) Lymphocyte, Absolute: 1.7 10^3/mcL (01/28/22 11:57:00) Monocyte, Absolute: 0.6 10^3/mcL (01/28/22 11:57:00) Eosinophil, Absolute: 0 10^3/mcL (01/28/22 11:57:00) Basophil, Absolute: 0 10^3/mcL (01/28/22 11:57:00) Glucose Level: 75 mg/dL (01/28/22 11:57:00) Sodium Level: 138 mmol/L (01/28/22 11:57:00) Potassium Level: 4.1 mmol/L (01/28/22 11:57:00) Chloride: 105 mmol/L (01/28/22 11:57:00) CO2: 21 mmol/L Low (01/28/22 11:57:00) Electrolyte Balance: 12 mEq/L (01/28/22 11:57:00) BUN: 7 mg/dL (01/28/22 11:57:00) Creatinine Lvl (s): 0.55 mg/dL (01/28/22 11:57:00) BUN/Creatinine Ratio: 13 ratio (01/28/22 11:57:00) Calcium Lvl: 9.2 mg/dL (01/28/22 11:57:00) Uric Acid Lvl: 6.2 mg/dL (01/28/22 11:57:00) Total Protein: 6.3 G/dL Low (01/28/22 11:57:00) Albumin Level: 2.7 G/dL Low (01/28/22 11:57:00) Globulin: 3.6 G/dL (01/28/22 11:57:00) A/G Ratio: 0.8 ratio Low (01/28/22 11:57:00) Bili Total: 0.8 mg/dL (01/28/22 11:57:00) Alk Phos: 184 U/L High (01/28/22 11:57:00) AST/SGOT: 22 U/L (01/28/22 11:57:00) ALT/SGPT: 11 U/L Low (01/28/22 11:57:00) GFR Non-: 124 ml/min/1.73sqm (01/28/22 11:57:00) GFR : 151 ml/min/1.73sqm (01/28/22 11:57:00) U Creatinine: 27.7 mg/dL Low (01/28/22 11:57:00) U Protein: <6 (01/28/22 11:57:00) U Ratio Prot/Creat: Unable to Calculate (01/28/22 11:57:00) Glucose Urine Dipstick: Negative (01/28/22 10:52:00) Ketones Urine Dipstick: Negative (01/28/22 10:52:00) Blood Urine Dipstick: Negative (01/28/22 10:52:00) Nitrite Urine Dipstick: Negative (01/28/22 10:52:00) Leukocytes Urine Dipstick: 2+ Moderate (Abnormal) (01/28/22 10:52:00) Urine Protein WH: Negative (01/28/22 10:52:00) Prenatals: A positive ab negative Rubella Immune HIV non reactive Hep C ab negative Hep B sAg negative RPR non reactive Varicella Immune UDS negative UR Cx: 10-50k mixed urogenital NIPT low risk female Pap: NILM neg hr HPV 28 wk labs CBC 9.4/10.3/30.7/163 RPR non reactive 1 hour OGCT 159 3 hour OGTT 102/216/172/101 GBS collected today but not yet resulted Imaging Results and Diagnostics Growth US 01/18:s/v/3048g(84%le) 6#12oz/18.9cm/ant-gr2 BPP 01/25 11/09 [place] 22 cm Assessment/Plan 36 weeks gestation of AMA (advanced maternal age) multigravida 35+ GDM, class A2 Obesity in Polyhydramnios Pre-eclamptic toxemia start mag 6/2 nifedipine 10 mg x1 continue BP check cefm, toco transfer to [facility] for acute care and IOL discussed plan with patient and Orders: magnesium sulfate 20 gram(s) [2 gm/hr] + Sterile Water Premix Diluent 500 mL, Start: 01/28/22 19:28:00 EDT, Rate: 50 mL/hr, 01/28/22 19:28:00 EDT Call Parameters Communication Order (continuous) Continuous Pulse Oximeter (LDRP) Discontinue Order Evaluate in OB Triage Monitoring Group B Strep (PCR) Intake and Output Intake and Output Call Parameters Magnesium Checks Magnesium Level NPO Transfer/Change in Level of Care Vital Signs Vital Signs Vital Signs Vital Signs Call Parameters Vital Signs Call Parameters Problem List/Past Medical History Ongoing AMA (advanced maternal age) multigravida 35+ Body mass index 30+ - obesity Chronic hypertension Encounter for supervision of normal in multigravida in third trimester Gestational diabetes Gestational diabetes mellitus, class A>2< History of gestational diabetes in prior , currently in first trimester History of gestational hypertension Obesity during in first trimester Historical CUSHION FORMER history: Menarche: 9 Menses: regular menses Menopause: n/a HRT: n/a Contraception: none Prior contraception: ocps- no issues STDs: denies Sexually active: yes, no issues Hx of abuse: denies Pap: 05/2020- normal per patient, had done in [facility] Hx of abnormal pap: had LEEP in 2007, 3 TSVD since Gardasil: NA Pregnancies: 3 TSVD- htn with all and GDMA2 on insulin in the last . largest baby 8#9oz Hereditary genetic disease carrier testing: Infertility: no Chronic pelvic pain: denies Gynecology past issues or surgeries: LEEP in 2007 Mammogram: NA Hx of breast bx: no Colonoscopy: NA DXA: NA Family CUSHION FORMER history: Breast/colon/ovarian/uterine cancer: MGM w breast cancer- 70s Hereditary cancer carrier testing: Osteoporosis or hip fractures: no Blood clots, bleeding or clotting disorders: no Genetic conditions or defects: no Recurrent losses, stillbirth or infertility: no [1] Procedure/Surgical History Appendectomy: 2019 Umbilical Hernia repair: 2019 Cholecystotomy: 2008 LEEP: 2007 Medications Home Medications (5) Active aspirin 81 mg oral delayed release tablet 81 mg = 1 tab(s), Oral, Daily Blood Glucose Test Strips See Instructions glyBURIDE 5 mg oral tablet 5 mg = 1 tab(s), Oral, BIDM ondansetron 4 mg oral tablet 4 mg = 1 tab(s), PRN, Oral, q8h Multivitamins 1 tab(s), Oral, qDay Allergies NKA Social History Alcohol Use: Current. Frequency: 1-2 times per year., 06/29/2021 Nutrition/Health Caffeine intake amount: 1 serving daily., 06/29/2021 Substance Abuse Use: Never., 06/29/2021 Tobacco Nicotine Use: Former smoker, quit more than 30 days ago. Stopped at age: 22 Years., 06/29/2021 Family History Breast cancer: Maternal Grandmother (Dx at 70). Diabetes: Mother. HTN - Hypertension: Mother and Father. Immunizations tetanus/diphth/pertuss (Tdap) adult/adol: 0.5 mL (01/07/22) Code Status No qualifying data available. [1] G4 Initial OB Office Visit Note; DANAY DE LA TORRE MD 06/29/2021 14:22 EDT Digitally Signed by DANAY DE LA TORRE MD on 01/28/2022 08:13 PM [facility]10-27-2022 Hospital Discharge instructions Patient Education 01/28/2022 13:55:40 [facility] Outpatient Instructions ([facility]) [facility] OUT[facility]IENT HOME-GOING INSTRUCTIONS _X_ You are to follow up with your physician in ___ days/weeks. ACTIVITY ___ Bedrest _X__Activity as tolerated ___ No work/school for ___ days. ___Other PRESCRIPTION GIVEN ___Yes NAUSEA/VOMITING ___ Take small, frequent amounts of clear liquids. Avoid fruit juices and milk. ___ Increase fluid intake to a minimum of 8 ounces of fluid every hour while awake. ___ Soft diet. Rice, crackers, bananas, Jell-O, cooked carrots, applesauce. ___ [place] diet. Avoid caffeine, chocolate, alcohol, spiced/greasy foods. URINARY TRACT INFECTION ___ Drink 8-12 glasses of water every day. ___ Urinate frequently; do not limit fluids to reduce frequency of urination. ___ Call your physician if burning and frequency with urination returns after taking all your medication. ___ Call your physician if you have a temperature of 100.4 degrees Fahrenheit or higher. ___ Wipe from front to back. SIGNS OF PRE-ECLAMPSIA _X__ Severe heartburn. _X__ Persistent headache not relieved by Tylenol. _X__ Increased in swelling of face, hands and feet. _X__ Blurred vision, double vision, or spots in the eyes. _X__ Persistent vomiting. _X__ *Convulsions or seizures. LABOR ___ Restrict activity. ___ Drink 8-12 glasses of water every day. ___ Urinate frequently ___ Pelvic rest. No sexual intercourse/ Call your physician if you experience: _X__ Increase in vaginal discharge, leaking fluid, or vaginal bleeding. _X__ More than 4, 5, or 6 contractions in one hour. _X__ Burning and frequency with urination. DECREASED MOVEMENT _X__ Lie down on your left side, drink some fluids and relax. Count the movements. You need to have 10 movements in 2 hours. _X__ If you do not feel the 10 movements, call your physician. OTHER ___ After an exam you may experience some spotting or discharge. As long as it is not bright red and heavy like a period or continues to leak as if your water broke, it is to be expected. ___ LABOR Call your physician if you experience: ___ Painful uterine contractions every ___ minutes for ___ hours. ___A gush or continuous trickle of watery discharge. COME TO THE HOSPITAL AND CALL PHYSICIAN IF: ___ Your abdomen feels continually firm. ___ *Bleeding is bright red and enough to saturate a pad in one hour or less. *Call 911 or go to the nearest Emergency Room for assistance. Form [id number] D: 03/12 Follow Up Care 01/28/2022 11:30:53 With:Follow up with primary care provider Address: When: Unknown Comments:If blood pressure is greater than 150/100 OR if you develop a headache that doesn't go away with tylenol or vision changes. With:DANAY DE LA TORRE MD Address: [address] [place] [address] [address] [facility] [place] [address] [phone] When:02/01/2022 13:54:00 [facility] 10-27-2022 Evaluation + Plan noteExtracted from: Title:History and Physical/ Transfer Author:DANAY RUIZ MD Date:01/28/22 36 weeks gestation of pregna yaneliy AMA (advanced maternal age) multigravida 35+ GDM, class A2 Obesity in Polyhydramnios Pre-eclamptic toxemia start mag 6/2 nifedipine 10 mg x1 continue BP check cefm, toco transfer to [facility] for acute care and IOL discussed plan with patient and Orders: magnesium sulfate 20 gram(s) [2 gm/hr] + Sterile Water Premix Diluent 500 mL, Start: 01/28/22 19:28:00 EDT, Rate: 50 mL/hr, 01/28/22 19:28:00 EDT Call Parameters Communication Order (continuous) Continuous Pulse Oximeter (LDRP) Discontinue Order Evaluate in OB Triage Monitoring Group B Strep (PCR) Intake and Output Intake and Output Call Parameters Magnesium Checks Magnesium Level NPO Transfer/Change in Level of Care Vital Signs Vital Signs Vital Signs Vital Signs Call Parameters Vital Signs Call Parameters Future Appointments Appointment Date:02/01/2022 09:30:00 AM Scheduled Provider: Location:[facility] Appointment Type:US OB W/Biophysical Profile Appointment Date:02/01/2022 02:15:00 PM Scheduled Provider:DANAY DE LA TORRE MD Location:[facility] Appointment Type: OV OB Routine Follow Up Appointment Date:02/08/2022 10:30:00 AM Scheduled Provider: Location:[facility] Appointment Type:US OB W/Biophysical Profile Appointment Date:02/15/2022 08:30:00 AM Scheduled Provider: Location:[facility] Appointment Type:US OB W/Biophysical Profile Future Scheduled Tests Laboratory* Type and Screen (AO) 06/29/21 * HIV 1/2 Ab 06/29/21 * Ratio Prot/Creat Urine 07/31/21 * [facility] Lab Send out (Blood Specimens) 07/31/21 Radiology* US OB Limited/Transvaginal 06/29/21 * US OB W/Biophysical Profile 02/15/22 * US OB W/Biophysical Profile 01/18/22 * US OB W/Biophysical Profile 02/01/22 * US OB W/Biophysical Profile 02/08/22 * US OB W/Biophysical Profile 12/31/21 [facility] 10-27-2022 Note Date of Service 01/28/22 36 yo @ 36.0 sent ot OB triage for elevated BP in [facility] office. All prior pregnancies complicated by ghtn/chtn. She has not been on any medications for BP this . BP in office 150/110. Wasasymptomatic previously. Had a headache /10 upon arrival but was very anxious as well. She recieved one dose of procardia upon arrival per Dr Quiros, all blood pressures have been normal, the highestbeing 139/71 prior to procardia. Pre-eclampsia labs were obtained and were normal. P/Cr <.1. Patient to be discharged home checking blood pressures twice daily or with any symptoms of pre-E. To call or present to ED if any 150/100. She will need an appointment on tuesday, rec IOL at 37 weeksfor gestational hypertension or sooner if BP continues to be elevated. [facility] Digitally Signed by DANAY DE LA TORRE MD on 01/28/2022 01:55 PM [facility]06-12-2008 History of Past illness Narrative* Problem Noted Date Resolved Date Cholecystitis, unspecified 09/14/200705/14 documented as of this encounter (statuses as of 04/10/2022) [facility] History of Past illness Narrative* Problem Noted Date Resolved Date Cholecystitis, unspecified 09/14/200705/14 documented as of this encounter (statuses as of 09/02/2022) [facility] Future Appointments Appointment Date:07/10/2021 07:30:00 AM Scheduled Provider: Location:[facility] Appointment Type:US OB < 14 weeks Appointment Date:07/31/2021 10:00:00 AM Scheduled Provider:DANAY DE LA TORRE MD Location:[facility] Appointment Type: OV OB Routine Follow Up Future Scheduled Tests Laboratory* Type and Screen (AO) 06/29/21 * Hepatitis B Surface Antigen 06/29/21 * Rapid Plasma Reagin Test 06/29/21 * Rubella Antibody 06/29/21 * Urine Culture 06/29/21 * A1C Hemoglobin 06/29/21 * Complete Blood Count 06/29/21 * Hepatitis C Antibody IgG 06/29/21 * HIV 1/2 Ab 06/29/21 * Varicella Zoster Antibody 06/29/21 * Urine Drug Screen 06/29/21 * Complete Metabolic Panel 06/29/21 Radiology* US OB Limited/Transvaginal 06/29/21 * US OB < 14 weeks 07/10/21 [facility] Evaluation + Plan note Future Appointments Appointment Date:07/31/2021 10:00:00 AM Scheduled Provider:DANAY DE LA TORRE MD Location:[facility] Appointment Type: OV OB Routine Follow Up Future Scheduled Tests Laboratory* Type and Screen (AO) 06/29/21 * Hepatitis B Surface Antigen 06/29/21 * Rapid Plasma Reagin Test 06/29/21 * Rubella Antibody 06/29/21 * Urine Culture 06/29/21 * A1C Hemoglobin 06/29/21 * Complete Blood Count 06/29/21 * Hepatitis C Antibody IgG 06/29/21 * HIV 1/2 Ab 06/29/21 * Varicella Zoster Antibody 06/29/21 * Urine Drug Screen 06/29/21 * Complete Metabolic Panel 06/29/21 Radiology* US OB Limited/Transvaginal 06/29/21 [facility] Evaluation + Plan note Future Appointments Appointment Date:08/28/2021 10:15:00 AM Scheduled Provider:HAMLET QUIROS MD Location:[facility] Appointment Type: OV OB Routine Follow Up Diagnostic Tests Pending * Rubella Antibody 07/31/21 * Varicella Zoster Antibody 07/31/21 * Rapid Plasma Reagin Test 07/31/21 Future Scheduled Tests Laboratory* Type and Screen (AO) 06/29/21 * HIV 1/2 Ab 06/29/21 * Ratio Prot/Creat Urine 07/31/21 * [facility] Lab Send out (Blood Specimens) 07/31/21 Radiology* US OB Limited/Transvaginal 06/29/21 [facility] Evaluation + Plan note Future Appointments Appointment Date:10/23/2021 10:30:00 AM Scheduled Provider:HAMLET QUIROS MD Location:[facility] Appointment Type: OV Future Scheduled Tests Laboratory* Type and Screen (AO) 06/29/21 * HIV 1/2 Ab 06/29/21 * Ratio Prot/Creat Urine 07/31/21 * [facility] Lab Send out (Blood Specimens) 07/31/21 Radiology* OB Limited/Transvaginal 06/29/21 [facility] Evaluation + Plan note Future Appointments Appointment Date:12/18/2021 11:45:00 AM Scheduled Provider:HAMLET QUIROS MD Location:[facility] Appointment Type:[facility] OB Routine Follow Up Diagnostic Tests Pending * Rapid Plasma Reagin Test 12/04/21 Future Scheduled Tests Laboratory* Type and Screen (AO) 06/29/21 * HIV 1/2 Ab 06/29/21 * Ratio Prot/Creat Urine 07/31/21 * [facility] Lab Send out (Blood Specimens) 07/31/21 Radiology* OB Limited/Transvaginal 06/29/21 [facility] Evaluation + Plan note Future Appointments Appointment Date:12/18/2021 11:45:00 AM Scheduled Provider:HAMLET QUIROS MD Location:[facility] Appointment Type:[facility] OB Routine Follow Up Future Scheduled Tests Laboratory* Type and Screen (AO) 06/29/21 * HIV 1/2 Ab 06/29/21 * Ratio Prot/Creat Urine 07/31/21 * [facility] Lab Send out (Blood Specimens) 07/31/21 Radiology* US OB Limited/Transvaginal 06/29/21 [facility] Evaluation + Plan note Future Appointments Appointment Date:01/07/2022 08:30:00 AM Scheduled Provider: Location:[facility] Appointment Type:US OB Limited Appointment Date:01/07/2022 08:30:00 AM Scheduled Provider: Location:[facility] Appointment Type:US OB W/Biophysical Profile Appointment Date:01/11/2022 08:30:00 AM Scheduled Provider: Location:[facility] Appointment Type:US OB W/Biophysical Profile Appointment Date:01/18/2022 08:30:00 AM Scheduled Provider: Location:[facility] Appointment Type:US OB W/Biophysical Profile Appointment Date:01/25/2022 08:30:00 AM Scheduled Provider: Location:[facility] Appointment Type:US OB W/Biophysical Profile Appointment Date:02/01/2022 08:30:00 AM Scheduled Provider: Location:[facility] Appointment Type:US OB W/Biophysical Profile Appointment Date:02/08/2022 08:30:00 AM Scheduled Provider: Location:[facility] Appointment Type:US OB W/Biophysical Profile Appointment Date:02/15/2022 08:30:00 AM Scheduled Provider: Location:[facility] Appointment Type:US OB W/Biophysical Profile Future Scheduled Tests Laboratory* Type and Screen (AO) 06/29/21 * HIV 1/2 Ab 06/29/21 * Ratio Prot/Creat Urine 07/31/21 * MISC Lab Send out (Blood Specimens) 07/31/21 Radiology* US OB Limited/Transvaginal 06/29/21 * US OB Limited 01/07/22 * US OB W/Biophysical Profile 02/15/22 * US OB W/Biophysical Profile 01/07/22 * US OB W/Biophysical Profile 01/11/22 * US OB W/Biophysical Profile 01/18/22 * US OB W/Biophysical Profile 01/25/22 * US OB W/Biophysical Profile 02/01/22 * US OB W/Biophysical Profile 02/08/22 * US OB W/Biophysical Profile 12/31/21 [facility] Evaluation + Plan note Future Appointments Appointment Date:01/11/2022 08:30:00 AM Scheduled Provider: Location:[facility] Appointment Type:US OB W/Biophysical Profile Appointment Date:01/14/2022 10:30:00 AM Scheduled Provider:DOC RITCHIE MD Location: [facility] Appointment Type: OV OB Routine Follow Up Appointment Date:01/18/2022 08:30:00 AM Scheduled Provider: Location:[facility] Appointment Type:US OB W/Biophysical Profile Appointment Date:01/25/2022 08:30:00 AM Scheduled Provider: Location:[facility] Appointment Type:US OB W/Biophysical Profile Appointment Date:02/01/2022 08:30:00 AM Scheduled Provider: Location:[facility] Appointment Type:US OB W/Biophysical Profile Appointment Date:02/08/2022 08:30:00 AM Scheduled Provider: Location:[facility] Appointment Type:US OB W/Biophysical Profile Appointment Date:02/15/2022 08:30:00 AM Scheduled Provider: Location:[facility] Appointment Type:US OB W/Biophysical Profile Future Scheduled Tests Laboratory* Type and Screen (AO) 06/29/21 * HIV 1/2 Ab 06/29/21 * Ratio Prot/Creat Urine 07/31/21 * MISC Lab Send out (Blood Specimens) 07/31/21 Radiology* US OB Limited/Transvaginal 06/29/21 * US OB W/Biophysical Profile 02/15/22 * US OB W/Biophysical Profile 01/11/22 * US OB W/Biophysical Profile 01/18/22 * US OB W/Biophysical Profile 01/25/22 * US OB W/Biophysical Profile 02/01/22 * US OB W/Biophysical Profile 02/08/22 * US OB W/Biophysical Profile 12/31/21 [facility] Evaluation + Plan note Future Appointments Appointment Date:01/14/2022 10:30:00 AM Scheduled Provider:DOC RITCHIE MD Location: [facility] Appointment Type: OV OB Routine Follow Up Appointment Date:01/18/2022 10:00:00 AM Scheduled Provider: Location:[facility] Appointment Type:US OB W/Biophysical Profile Appointment Date:01/25/2022 10:30:00 AM Scheduled Provider: Location:[facility] Appointment Type:US OB W/Biophysical Profile Appointment Date:02/01/2022 09:30:00 AM Scheduled Provider: Location:[facility] Appointment Type:US OB W/Biophysical Profile Appointment Date:02/08/2022 10:30:00 AM Scheduled Provider: Location:[facility] Appointment Type:US OB W/Biophysical Profile Appointment Date:02/15/2022 08:30:00 AM Scheduled Provider: Location:[facility] Appointment Type:US OB W/Biophysical Profile Future Scheduled Tests Laboratory* Type and Screen (AO) 06/29/21 * HIV 1/2 Ab 06/29/21 * Ratio Prot/Creat Urine 07/31/21 * MISC Lab Send out (Blood Specimens) 07/31/21 Radiology* US OB Limited/Transvaginal 06/29/21 * US OB W/Biophysical Profile 02/15/22 * US OB W/Biophysical Profile 01/18/22 * US OB W/Biophysical Profile 01/25/22 * US OB W/Biophysical Profile 02/01/22 * US OB W/Biophysical Profile 02/08/22 * US OB W/Biophysical Profile 12/31/21 [facility] Evaluation + Plan note Future Appointments Appointment Date:02/01/2022 09:30:00 AM Scheduled Provider: Location:[facility] Appointment Type:US OB W/Biophysical Profile Appointment Date:02/01/2022 02:15:00 PM Scheduled Provider:DANAY DE LA TORRE MD Location: [facility] Appointment Type: OV OB Routine Follow Up Appointment Date:02/08/2022 10:30:00 AM Scheduled Provider: Location:[facility] Appointment Type:US OB W/Biophysical Profile Appointment Date:02/15/2022 08:30:00 AM Scheduled Provider: Location:[facility] Appointment Type:US OB W/Biophysical Profile Future Scheduled Tests Laboratory* Type and Screen (AO) 06/29/21 * HIV 1/2 Ab 06/29/21 * Ratio Prot/Creat Urine 07/31/21 * MISC Lab Send out (Blood Specimens) 07/31/21 Radiology* US OB Limited/Transvaginal 06/29/21 * US OB W/Biophysical Profile 02/15/22 * US OB W/Biophysical Profile 01/18/22 * US OB W/Biophysical Profile 02/01/22 * US OB W/Biophysical Profile 02/08/22 * US OB W/Biophysical Profile 12/31/21 [facility] Evaluation + Plan note Future Appointments Appointment Date:02/08/2022 10:30:00 AM Scheduled Provider: Location:[facility] Appointment Type:US OB W/Biophysical Profile Appointment Date:02/15/2022 08:30:00 AM Scheduled Provider: Location:[facility] Appointment Type:US OB W/Biophysical Profile Future Scheduled Tests Laboratory* Type and Screen (AO) 06/29/21 * HIV 1/2 Ab 06/29/21 * Ratio Prot/Creat Urine 07/31/21 * MISC Lab Send out (Blood Specimens) 07/31/21 Radiology* US OB Limited/Transvaginal 06/29/21 * US OB W/Biophysical Profile 02/15/22 * US OB W/Biophysical Profile 01/18/22 * US OB W/Biophysical Profile 02/08/22 * US OB W/Biophysical Profile 12/31/21 [facility] Evaluation + Plan note Future Appointments Appointment Date:01/25/2023 11:00:00 AM Scheduled Provider:KYLEIGH CLIFFORD DO Location:[facility] [place] Appointment Type:PC OV Future Scheduled Tests Laboratory* Glucose 2 Hour Post Prandial 02/08/22 [facility] Evaluation note* Diagnosis URI with cough and congestion- Primary Left ear pain Otalgia, unspecified [facility] No data available for this section [facility] Hospital Discharge instructions No data available for this section [facility] Progress note No data available for this section [facility] Summary Purpose Family History No Family History Records FoundNo Family History Records FoundNo Family History Records FoundNo Family History Records FoundNo Family History Records Found No data available for this section No data available for this section Advance Directives No Advanced Directives Records FoundNo Advanced Directives Records FoundNo Advanced Directives Records FoundNo Advanced Directives Records FoundNo Advanced Directives Records Found Hospital Course Note REASON FOR ADMISSION: Reason for AdmissionAcute appendicitis(1) VITAL SIGNS: 2. Vital Signs: 19-Jun-2018 00:01 Temp (degrees F) (degrees F)97.4 Heart Rate (beats/min) beats/min97 BP Systolic (mm Hg) [id number] BP Diastolic (mm Hg) Diastolic (mm Hg)79 Respiration (breaths/min) Respiration (breaths/min)16 SpO2 (%) SpO2 (%)93 O2 Therapy Delivery Methodroom air 00:52 Temp (degrees F) (degrees F)97.6 Heart Rate (beats/min) beats/min97 BP Systolic (mm Hg) [id number] BP Diastolic (mm Hg) Diastolic (mm Hg)79 Respiration (breaths/min) Respiration (breaths/min)16 02:10 Temp (degrees F) (degrees F)96.6 Heart Rate (beats/min) beats/min93 BP Systolic (mm Hg) [id number] BP Diastolic (mm Hg) Diastolic (mm Hg)72 Respiration (breaths/min) Respiration (breaths/min)16 SpO2 (%) SpO2 (%)99 O2 Therapy Delivery Methodnasal cannula 04:10 Temp (degrees F) (degrees F)97 Heart Rate (beats/min) beats/min80 BP Systolic (mm Hg) [id number] BP Diastolic (mm Hg) Diastolic (mm Hg)69 Respiration (breaths/min) Respi (more content not included)... Note POST OPERATIVE NOTE: Post Op erative Note: Pre-Operative Diagnosis: Acute appendicitis Post-Operative Diagnosis: same Procedure(s) Performed: Laparoscopic appendectomy Findings: Above Surgeon(s): Emilee Sifter Operator(s)/Resident(s): Giedon Type of Anesthesia: General + local Estimated Blood Loss (mL): 2 mL Specimens Removed: appendix Electronic Signatures: Lor Hebert) (Signed 18-Jun-2018 22:49) Authored: POST OPERATIVE NOTE Last Updated: 18-Jun-2018 22:49 by Lor Hebert) Note Post Operative Note: PreOp D iagnosis: incarcerated ventral hernia Post-Procedure Diagnosis: same Procedure: 1. repair of incarcerated ventral hernia 2. 3. 4. 5. Surgeon: Emilee Resident/Fellow/Other Sifter Operator: Laron Estimated Blood Loss (mL): 2 Specimen: no Findings: above Operative Report Dictated: Dictation: not applicable - note contains Operative Report Operative Report: Patient was taken to the OR placed in supine position general anesthesia was administered pt was endotracheally intubated. Abdomen was prepped and draped in sterile fashion. Area was localized with Marcaine for postop anesthesia 10 mL was used. The incision was made, carried down sharply through skin and subcutaneous tissue, down to the level of the fascial defect the umbilicus was detached from the fascia the hernia sac was opened and preperitoneal fat was reduced intra-abdominally there was a 1.8 cm defect which was closed with figure of 8 fashion 0 Ethibond sutures 2 the umbilicus was re- tacked to the fa (more content not included)... Procedure Findings Note Post Operative Note: PreOp D iagnosis: incarcerated ventral hernia Post-Procedure Diagnosis: same Procedure: 1. repair of incarcerated ventral hernia 2. 3. 4. 5. Surgeon: Emilee Resident/Fellow/Other Sifter Operator: Laron Estimated Blood Loss (mL): 2 Specimen: no Findings: above Operative Report Dictated: Dictation: not applicable - note contains Operative Report Operative Report: Patient was taken to the OR placed in supine position general anesthesia was administered pt was endotracheally intubated. Abdomen was prepped and draped in sterile fashion. Area was localized with Marcaine for postop anesthesia 10 mL was used. The incision was made, carried down sharply through skin and subcutaneous tissue, down to the level of the fascial defect the umbilicus was detached from the fascia the hernia sac was opened and preperitoneal fat was reduced intra-abdominally there was a 1.8 cm defect which was closed with figure of 8 fashion 0 Ethibond sutures 2 the umbilicus was re- tacked to the fa (more content not included)... Note POST OPERATIVE NOTE: Post Op erative Note: Pre-Operative Diagnosis: Acute appendicitis Post-Operative Diagnosis: same Procedure(s) Performed: Laparoscopic appendectomy Findings: Above Surgeon(s): Emilee Sifter Operator(s)/Resident(s): Gideon Type of Anesthesia: General + local Estimated Blood Loss (mL): 2 mL Specimens Removed: appendix Electronic Signatures: Lor Hebert) (Signed 18-Jun-2018 22:49) Authored: POST OPERATIVE NOTE Last Updated: 18-Jun-2018 22:49 by Lor Hebert) Health Concerns Infection Onset Date Last Indicated Resolved Time COVID-19 Rule-Out 04/09/2022 04/09/2022 04/09/2022 9:35 PM EST Additional Source Comments INFORMATION SOURCE (unrecogn ized section and content) DATE CREATED AUTHOR AUTHOR'S ORGANIZ ATION 09/22/2018 [facility] DATE CREATED AUTHOR AUTHOR'S ORGANIZ ATION 02/06/2019 [facility] DATE CREATED AUTHOR AUTHOR'S ORGANIZ ATION 09/10/2022 [facility] DATE CREATED AUTHOR AUTHOR'S ORGANIZ ATION 11/04/2022 [facility] ([place]) Care Team (unrecognized sect ion and content) Care Team Related Persons Name: LUL BORDEN Care Team Related Persons Name: LUL BORDEN Care Team Related Persons Name: LUL BORDEN Care Team Related Persons Name: LUL BORDEN Care Team Related Persons Name: LUL BORDEN Care Team Related Persons Name: LUL BORDEN Care Team Personnel Name: HAMLET QUIROS MD Position: P4 SECRET SERVICE AGENT Provider Member Role: Primary Care Physician Address: Address: [address] [place] [address] Care Team Related Persons Name: LUL BORDEN Care Team Personnel Name: HAMLET QUIROS MD Position: P4 SECRET SERVICE AGENT Provider Member Role: Primary Care Physician Address: Address: [address] [place] [address] Care Team Related Persons Name: LUL BORDEN Care Team Personnel Name: HAMLET QUIROS MD Position: P4 SECRET SERVICE AGENT Provider Member Role: Primary Care Physician Address: Address: [address] [place] [address]- Care Team Related Persons Name: GLEN BORDENCC Address: Home [address] [place] [phone] Name: LUL BORDEN Care Team Personnel Name: HAMLET QUIROS MD Position: P4 SECRET SERVICE AGENT Provider Member Role: Primary Care Physician Address: Address: [address] [place] [address] Care Team Related Persons Name: JAE BORDEN Address: Home [address] [place], [place] [phone] Name: LUL BORDEN Care Team Related Persons Name: JAE BORDEN Address: Home [address] [place], [place] [phone] Name: LUL BORDEN Care Team Related Persons Name: JAE BORDEN Address: Home [address] [place], [place] [phone] Name: LUL BORDEN Source Comments (unrecognize d section and content) In the event this informatio n is protected by the Federal Confidentiality of Alcohol and Drug Abuse Patient Records regulations: The Federal rules restrict any use of the information to criminally investigate or prosecute any alcohol or drug abuse patient.[facility] the event this information is protected by the Federal Confidentiality of Alcohol and Drug Abuse Patient Records regulations: The Federal rules restrict any use of the information to criminally investigate or prosecute any alcohol or drug abuse patient.[facility] Reason for Visit (unrecogniz ed section and content) Reason Comments Appointment Patient Care team informatio n (unrecognized section and content) Care Team Personnel Name: DANAY DE LA TORRE MD Position: P4 SECRET SERVICE AGENT Provider Member Role: OBGYN Address: Address: [address] [place] [address] [place], [place] [address] Name: KYLEIGH CLIFFORD DO Position: P4 Physician - Primary Care Member Role: Primary Care Physician Address: Address: [address] [facility] [place] [address]- Care Team Related Persons Name: STAS BORDEN-GIRL-CC Address: Home [address] [place], [place] [phone] Name: LUL BORDEN FOR RECORDS PERTAINING TO PATIENTS WHO ARE OR HAVE BEEN ENROLLED IN A CHEMICAL DEPENDENCY/SUBSTANCEABUSE PROGRAM, SOME INFORMATION MAY BE OMITTED. This clinical summary was aggregated from multiple sources. Caution should be exercised in using it in the provision of clinical care. This summary normalizes information from multiple sources, and as a consequence, information in this document may materially change the coding, format and clinical context of patient data. In addition, data may be omitted in some cases. CLINICAL DECISIONS SHOULD BE BASED ON THE PRIMARY CLINICAL RECORDS. [employer] provides no warranty or guarantee of the accuracy or completeness of information in this document.
--- NOTE | 2023-05-27 07:28 | MRI_ITS ---
HISTORY: CHRONIC MIGRAINE WITHOUT AURA. TECHNIQUE: Multiplanar and multisequence MR images of the brain were obtained before and after the intravenous administration of 25 mL Clariscan. 326 images. COMPARISON: None. FINDINGS: BRAIN PARENCHYMA: No significant signal abnormality or enhancing lesion in the brain parenchyma. No abnormal focus of restricted diffusion. No acute intracranial hemorrhage identified. CSF SPACES: Cerebral ventricles, cortical sulci, and other extra-axial CSF spaces within normal limits in size for age. No significant midline shift or other mass effect.No extra-axial fluid collection. VASCULAR SYSTEM: Major intracranial flow voids are maintained. PARANASAL SINUSES AND MASTOID AIR CELLS: Right maxillary sinus mucous retention cysts. ORBITS: Symmetric contents. OTHER: 2 cm left scalp sebaceous cyst. MRI/Brain W/WO Contrast IMPRESSION: Unremarkable examination. No evidence for significant signal abnormality in the brain or enhancing intracranial mass. Electronically Signed: Mirian Barrett MD at 13:59 EST ,
[2023-05-27 07:59] LABS: CREATININE FINGERSTICK < 1.0 mg/dL (0.55-1.02); EGFR FINGERSTICK > 60.0000 mL/min (>60)
--- NOTE | 2023-05-27 08:08 | MRI_ITS ---
STUDY: EXAMINATION - MRV BRAIN WITHOUT CONTRAST REASON FOR EXAM: Female, 37 years old. MIGRAINE TECHNIQUE: 3D [id number]-onymis (TOF) imaging was performed in a 1.5 larry MRI scanner. COMPARISON: None. FINDINGS: Normal flow within the superior sagittal sinus. Normal flow within the superficial cortical veins. Normal flow within the paired internal cerebral veins, vein of Kuldeep and straight sinus. Normal flow within the bilateral transverse and sigmoid sinuses. Normal flow within the bilateral jugular bulbs. MRI/MRV Head Without Contrast IMPRESSION: Normal unenhanced MRV of the brain. Electronically Signed: Frederick Stroud MD at 11:33 EST ,
== END | disposition home or self-care (01) ==
LOC: MRI 06:47
PROVIDERS: PCP Student in an Organized Health Care Education/Training Program; Referring Provider Physician Assistant; Visit Provider Physician Assistant
DX: G43.709 Chronic migraine without aura, not intractable, without status migrainosus (principal)
CPT/HCPCS: 70544; 70553; A9575

== ENCOUNTER → 2024-03-15 | Outpatient (CLI) | payer MEDICAID, SELFPAY ==
--- NOTE | 2024-03-15 11:27 | EKG12_ITS ---
Test Reason : SOB Blood Pressure : */* mmHG Vent. Rate : 60 BPM Atrial Rate : 60 BPM P-R Int : 114 ms QRS Dur : 74 ms QT Int : 408 ms P-R-T Axes : 47 52 -8 degrees QTcB Int : 408 ms Normal sinus rhythm Abnormal QRS-T angle, consider primary T wave abnormality Abnormal ECG Confirmed by CECELIA QUESADA, KARLOS ([id number]), web editor ARLEN ALFONSO ([id number]) on 03/21/2024 2:13:21 P M Referred By: Cricket Camargo Confirmed By: KARLOS RAI MD
== END | disposition home or self-care (01) ==
LOC: PSN 11:23
PROVIDERS: PCP Student in an Organized Health Care Education/Training Program; Referring Provider Student in an Organized Health Care Education/Training Program; Visit Provider Student in an Organized Health Care Education/Training Program
DX: R06.02 Shortness of breath (principal); R07.89 Other chest pain
CPT/HCPCS: 93005

== ENCOUNTER → 2025-02-18 | Outpatient (CLI) | payer MEDICAID, SELFPAY ==
--- NOTE | 2025-02-18 13:39 | ECHOD_ITS ---
Reason For Study Reason For Study: Murmur Procedure This was a 2D Doppler, Color Flow transthoracic echocardiogram. Exam performed in department. Left Ventricle Normal LV size. Left ventricular systolic function is normal. The left ventricular ejection fraction is 60 %. No regional wall motion abnormalities noted. Right Ventricle Normal RV size. Normal systolic function. Atria Normal left atrium. Normal right atrium. Mitral Valve Normal mitral valve. Tricuspid Valve Normal tricuspid valve. Mild (1+) tricuspid valve insufficiency. Pulmonary artery systolic pressure is 24 mmHg. Aortic Valve Normal aortic valve. Trisinus/trileaflet aortic valve. Pulmonic Valve Normal pulmonic valve. Great Vessels Normal aortic root. The pulmonary artery is normal size. Inferior vena cava collapse with respiration. Pericardium/Pleural No pericardial effusion. MMode/2D Measurements & Calculations LVIDd: 5.3 cm IVSd: 0.92 cm Ao root diam: 2.9 cm LVIDs: 3.3 cm LVPWd: 0.78 cm RVDd: 4.0 cm FS: 36.4 % LAV(MOD-bp): 71.8 ml LVAd ap4: 30.9 cm2 SV(MOD-sp4): 59.1 ml LAV(MOD-bp) Indexed: 30.9 ml/m2 LVLd ap4: 8.1 cm SI(MOD-sp4): 25.4 ml/m2 LAV(MOD-sp2): 56.9 ml EDV(MOD-sp4): 96.3 ml LAV(MOD-sp4): 77.0 ml EDV(sp4-el): 100.4 ml LVAs ap4: 16.7 cm2 LVLs ap4: 6.4 cm ESV(MOD-sp4): 37.2 ml ESV(sp4-el): 37.1 ml EF(MOD-sp4): 61.3 % EF(sp4-el): 63.0 % SV(sp4-el): 63.3 ml LA A4 area: 24.7 cm2 LA dimension(2D): 4.5 cm RA A4 area: 18.7 cm2 TAPSE: 2.2 cm Time Measurements MV dec time: 0.24 sec Doppler Measurements & Calculations MV E max andrae: 108.9 cm/sec Lat Peak E' Andrae: 15.2 cm/sec Med Peak E' Andrae: 12.4 cm/sec MV A max andrae: 81.7 cm/sec E/E' lat: 7.2 E/E' med: 8.8 MV E/A: 1.3 MV V2 max: 133.0 cm/sec MV P1/2t max andrae: 133.0 cm/sec Ao V2 max: 184.1 cm/sec MV max P.1 mmHg MV P1/2t: 87.2 msec Ao max P.6 mmHg MV V2 mean: 64.0 cm/sec Ao V2 mean: 124.9 cm/sec MV mean P.1 mmHg MV dec slope: 446.8 cm/sec2 Ao mean P.2 mmHg MV V2 VTI: 42.9 cm MVA(P1/2t): 2.5 cm2 Ao V2 VTI: 42.1 cm AV (velocity ratio): 0.69 LV V1 max: 127.2 cm/sec MR max andrae: 476.2 cm/sec PA V2 max: 99.3 cm/sec LV V1 max P.5 mmHg MR max P.7 mmHg PA V2 mean: 73.5 cm/sec LV V1 mean P.4 mmHg LV V1 mean: 85.6 cm/sec LV V1 VTI: 28.8 cm TR max andrae: 229.7 cm/sec TR max P.1 mmHg ECHO/Echo Complete Interpretation Summary Normal LV size. Left ventricular systolic function is normal. The left ventricular ejection fraction is 60 %. Structurally normal valves. Ordering Physician: Mil Cano Referring Physician: Rachael, Mil Performed By: Jhony Lino RCS
== END | disposition home or self-care (01) ==
LOC: CVS 13:35
PROVIDERS: PCP Student in an Organized Health Care Education/Training Program; Referring Provider Internal Medicine Cardiovascular Disease; Visit Provider Internal Medicine Cardiovascular Disease
DX: I05.8 Other rheumatic mitral valve diseases (principal); R01.1 Cardiac murmur, unspecified
CPT/HCPCS: 93306